=== PATIENT | male | born 1970 | race Caucasian/White ===

== ENCOUNTER 2016-12-17 23:35 | Inpatient (IN) | payer SELFPAY ==
--- NOTE | 2016-12-18 02:18 | PDOC ---
History of Present Illness - General History Source: Patient Exam Limitations: No Limitations - History of Present Illness Initial Comments: 12/18/16 03:05 Patient is a 46 year old male with a significant past medical history of Obesity , HTN, HLD, Gout (compliant with medications), who presents to the emergency department with lower extremity swelling, erythema and lesions with clear fluid from left lower extremity. Patient states that he has history of gout and his extremities are usually red and swollen so he did not pay much attention to them. Patient reports redness and swelling up to both knees. He denies fever or chills. <Cony Cardenas - Last Filed: 12/18/16 03:05> - General History Source: Patient <Anthony Munoz - Last Filed: 12/18/16 04:13> - General Chief Complaint: Edema Stated Complaint: SWOLLEN LEGS Time Seen by Provider: 12/18/16 01:50 Past History <Cony Cardenas - Last Filed: 12/18/16 03:05> - Past Medical History HTN: Yes Hypercholesterolemia: Yes - Surgical History Cholecystectomy: Yes GI Surgery: Yes (Hernia) - Immunization History Td Vaccination: Yes Immunization Up to Date: Yes - Psycho/Social/Smoking Cessation Hx Anxiety: No Suicidal Ideation: No Smoking Status: No Smoking History: Never smoked Years of Tobacco Use: 0 Number of Cigarettes Smoked Daily: 0 Cigars Per Day: 0 Hx Alcohol Use: No Drug/Substance Use Hx: No Substance Use Type: None <Anthony Munoz - Last Filed: 12/18/16 04:13> - Past Medical History Allergies/Adverse Reactions: Allergies Allergy/AdvReac Type Severity Reaction Status Date / Time No Known Allergies Allergy Verified 12/18/16 02:34 Home Medications: Ambulatory Orders Colesevelam HCl [Welchol] 625 mg PO DAILY 10/05/12 Colchicine 0.6 mg PO DAILY 11/05/14 Losartan Potassium 100 mg PO DAILY 11/05/14 Metoprolol Succinate [Toprol XL -] 100 mg PO DAILY 11/05/14 Aspirin [ASA -] 81 mg PO DAILY 01/19/16 Allopurinol [Zyloprim -] 300 mg PO DAILY 07/19/16 Furosemide [Lasix -] 40 mg PO DAILY 07/19/16 Potassium Chloride [Klor-Con 10] 10 meq PO DAILY 07/19/16 Review of Systems - Review of Systems Able to Perform ROS?: Yes Comments:: 12/18/16 03:05 CONSTITUTIONAL: Absent: fever, chills, diaphoresis, generalized weakness, malaise, loss of appetite HEENT: Absent: rhinorrhea, nasal congestion, throat pain, throat swelling, difficulty swallowing, mouth swelling, ear pain, eye pain, visual Changes CARDIOVASCULAR: Absent: chest pain, syncope, palpitations, irregular heart rate, lightheadedness , peripheral edema RESPIRATORY: Absent: cough, shortness of breath, dyspnea with exertion, orthopnea, wheezing, stridor, hemoptysis GASTROINTESTINAL: Absent: abdominal pain, abdominal distension, nausea, vomiting, diarrhea, constipation, melena, hematochezia GENITOURINARY: Absent: dysuria, frequency, urgency, hesitancy, hematuria, flank pain, genital pain MUSCULOSKELETAL: Present: bilateral lower extremity erythema and edema. Absent: myalgia, arthralgia, joint swelling SKIN: Absent: rash, itching, pallor HEMATOLOGIC/IMMUNOLOGIC: Absent: easy bleeding, easy bruising, lymphadenopathy, frequent infections ENDOCRINE: Absent: unexplained weight gain, unexplained weight loss, heat intolerance, cold intolerance NEUROLOGIC: Absent: headache, focal weakness or paresthesias, dizziness, unsteady gait, seizure, mental status changes, bladder or bowel incontinence PSYCHIATRIC: Absent: anxiety, depression, suicidal or homicidal ideation, hallucinations. <Cony Cardenas - Last Filed: 12/18/16 03:05> *Physical Exam - Vital Signs Last Vital Signs Temp Pulse Resp BP Pulse Ox 98.3 F 90 20 160/112 97 12/18/16 00:48 12/18/16 00:48 12/18/16 00:48 12/18/16 00:48 12/18/16 00:48 - Physical Exam Comments: 12/18/16 03:06 GENERAL: +Obese. Well developed, well nourished. Awake and alert. In no acute distress. HEENT: Normocephalic, atraumatic. PERRLA, EOMI. No conjunctival pallor. Sclerae are non -icteric. Moist mucous membranes. Oropharynx is clear. NECK: Supple. Full ROM. No JVD. Carotid pulses 2+ and symmetric, without bruits. No thyromegaly. No lymphadenopathy. CARDIOVASCULAR: Regular rate and rhythm. No murmurs, rubs, or gallops. Distal pulses are 2+ and symmetric. PULMONARY: No evidence of respiratory distress. Lungs clear to auscultation bilaterally. No wheezing, rales or rhonchi. ABDOMINAL: +Morbidly obese. Soft. Non-tender. Non-distended. No rebound or guarding. No organomegaly. Normoactive bowel sounds. MUSCULOSKELETAL Normal range of motion at all joints. No bony deformities or tenderness. No CVA tenderness. EXTREMITIES: + +2 pitting edema bilateral up to both knees. Neither lower extremity is tender. No cyanosis. No clubbing. No calf tenderness. SKIN: Warm and dry. Normal capillary refill. No rashes. No jaundice. NEUROLOGICAL: Alert, awake, appropriate. Cranial nerves 2-12 intact. No deficits to light touch and temperature in face, upper extremities and lower extremities. No motor deficits in the in face, upper extremities and lower extremities. Normoreflexic in the upper and lower extremities. Normal speech. Toes are downgoing bilaterally. PSYCHIATRIC: Cooperative. Good eye contact. Appropriate mood and affect. <Cony Cardenas - Last Filed: 12/18/16 03:05> - Vital Signs Last Vital Signs Temp Pulse Resp BP Pulse Ox 98.3 F 90 20 160/112 97 12/18/16 00:48 12/18/16 00:48 12/18/16 00:48 12/18/16 00:48 12/18/16 00:48 <Anthony Munoz - Last Filed: 12/18/16 04:13> Heart Score/ECG Review #1 12/18/16 03:08 ECG was reviewed by Dr. Munoz Impression: atrial fibrillation with premature ventricular or aberrantly conducted complexes Nonspecific T wave abnormality Prolonged QT Vent rate 93 bpm QRS duration 90 ms <Cony Cardenas - Last Filed: 12/18/16 03:05> ED Treatment Course - Medications Given in the ED: ED Medications Discontinued Medications Generic Name Dose Route Start Last Admin Trade Name Freq PRN Reason Stop Dose Admin Furosemide 60 mg 12/18/16 02:22 12/18/16 02:58 Lasix Injection - IVPUSH 12/18/16 02:23 60 mg ONCE ONE Administration <Cony Cardenas - Last Filed: 12/18/16 03:05> - LABORATORY CBC & Chemistry Diagram: 12/18/16 02:45 12/18/16 02:45 <Anthony Munoz - Last Filed: 12/18/16 04:13> Medical Decision Making - Medical Decision Making 12/18/16 03:57 Dr. Munoz: The scribe's documentation has been prepared under my direction and personally reviewed by me in its entirery. I confirm that the note above accurately reflects all work, treatment, procedures, and medical decision making performed by me. 12/18/16 03:59 Pt with bilateral lower extremity edema and multiple wound to left leg, with serous yellow fluid. 12/18/16 04:13 <Anthony Munoz - Last Filed: 12/18/16 04:13> *DC/Admit/Observation/Transfer - Attestations Scribe Attestion: 12/18/16 03:08 Documentation prepared by JASMYN Gomez, acting as medical coder for Anthony Munoz DO. <Cony Cardenas - Last Filed: 12/18/16 03:05> - Discharge Dispostion Admit: Yes <Anthony Munoz - Last Filed: 12/18/16 04:13> Diagnosis at time of Disposition: Bilateral lower extremity edema Open wound of left knee, leg, and ankle Qualifiers: Encounter type: initial encounter Qualified Code(s): S81.002A - Unspecified open wound, left knee, initial encounter - Discharge Dispostion Condition at time of disposition: Stable - Referrals Referrals: Mojgan West MD [Primary Care Provider] -
[2016-12-18] MEDS ORDERED: FUROSEMIDE 40 MG/4 ML INJECTABLE VIAL IVPUSH ONE (02:22)
[2016-12-18] MEDS ORDERED: FUROSEMIDE 40 MG/4 ML INJECTABLE VIAL ONE ×2 (02:42→02:43)
[2016-12-18 03:10] LABS: BASOPHIL 0.7 % (0-2.0); EOSINOPHIL 2.6 % (0-4.5); MCH 30.4 pg (25.7-33.7); MEAN CELL VOLUME 91.9 fl (80-96); MEAN PLT VOLUME 8.9 fl (7.5-11.1); NEUTROPHILS 52.7 % (42.8-82.8); PLATELET COUNT 175 K/MM3 (134-434); RDW 15.4 % (11.9-15.9); WHITE BLOOD COUNT 7.6 K/mm3 (4.0-10.0)
[2016-12-18 03:33] VITALS: BMI 48.7
[2016-12-18 03:33] LABS: URINE APPEARANCE CLEAR; URINE BILIRUBIN NEGATIVE (NEGATIVE); URINE BLOOD NEGATIVE (NEGATIVE); URINE COLOR LTYELLOW; URINE GLUCOSE (UA) NEGATIVE (NEGATIVE); URINE KETONE NEGATIVE (NEGATIVE); URINE LEUK ESTERASE NEGATIVE (NEGATIVE); URINE NITRITE NEGATIVE (NEGATIVE); URINE UROBILINOGEN NEGATIVE E.U./dl (0.2-1.0)
[2016-12-18 03:36] LABS: ALBUMIN 3.3 g/dl (3.4-5.0); ANION GAP 10 (8-16); BILIRUBIN,TOTAL 0.6 mg/dL (0.2-1.0); CALCIUM 8.5 mg/dL (8.5-10.1); CO2 27 mmol/L (21-32); CREATININE 0.8 mg/dL (0.7-1.3); GLUCOSE,RANDOM 111 mg/dL (74-106); SGOT/AST 30 U/L (15-37); SGPT/ALT 30 U/L (12-78); TOT PROT 6.6 g/dl (6.4-8.2)
[2016-12-18 03:39] LABS: ALK PHOS 97 U/L (45-117); INR 1.23 (0.82-1.09); PROTHROMBIN TIME (PATIENT) 13.6 SEC (9.98-11.88); TROPONIN I < 0.02 ng/ml (0.00-0.05)
[2016-12-18 03:43] LABS: URINE PROTEIN 2+ (NEGATIVE)
[2016-12-18 03:49] LABS: URINE MUCUS RARE; URINE RBC 1 /hpf (0-3); URINE WBC <1 /hpf (3-5)
[2016-12-18] MEDS ORDERED: CEFAZOLIN 2 GM in DEXTROSE 5%-WATER - 50 ML IVPB ONE (04:06)
[2016-12-18] MEDS ORDERED: CEFAZOLIN (PRE-DOCKED) 100 ML IVPB ONE (04:56)
--- NOTE | 2016-12-18 06:05 | HP ---
CHIEF COMPLAINT: leg swelling PCP: [facility] HISTORY OF PRESENT ILLNESS: This is a 46 year old male with a past medical history of HTN, HLD, gout, obesity who presented to the ED with bilat lower extremity swelling and erythema. Symptoms started 2 weeks ago and have worsened. Now with excoriations to LLE as well. + weeping serous fluid. Pt states that he became concerned when the redness and swelling extended above knee. Pt denies any chest pain or SOB. ER course was notable for: (1) given Ancef 1g IV (2) WBC 7.6 Recent Travel: pt denies PAST MEDICAL HISTORY: HTN HLD gout obesity PAST SURGICAL HISTORY: cholecystectomy Left knee arthroscopy R knee ACL, MCL repair Left hernia repair Social History: Smoking: pt denies Alcohol: quit 35 days ago, previous heavy drinker, 1.5 bottles geronimo black, beer and shots per night 4-5 nights/week Drugs: quit 35 days ago, previous cocaine use Family History: mother age 71, DM1, CA, 15 stents father age 68, [place], first [place] age 36, DM2 No siblings or children Allergies No Known Allergies Allergy (Verified 12/18/16 02:34) HOME MEDICATIONS: 3 Medication Instructions Recorded Colesevelam HCl [Welchol] 625 mg PO DAILY 10/05/12 Colchicine 0.6 mg PO DAILY 11/05/14 Losartan Potassium 100 mg PO DAILY 11/05/14 Metoprolol Succinate [Toprol XL -] 100 mg PO DAILY 11/05/14 Aspirin [ASA -] 81 mg PO DAILY 01/19/16 Allopurinol [Zyloprim -] 300 mg PO DAILY 07/19/16 Furosemide [Lasix -] 40 mg PO DAILY 07/19/16 Potassium Chloride [Klor-Con 10] 10 meq PO DAILY 07/19/16 Albuterol Sulfate Inhaler - 1 - 2 inh PO Q4H 12/18/16 [Ventolin Hfa Inhaler -] Tramadol HCl [Ultram] 50 mg PO ASDIR PRN 12/18/16 REVIEW OF SYSTEMS CONSTITUTIONAL: Absent: fever, chills, diaphoresis, generalized weakness, malaise, loss of appetite, weight change HEENT: Absent: rhinorrhea, nasal congestion, throat pain, throat swelling, difficulty swallowing, mouth swelling, ear pain, eye pain, visual changes CARDIOVASCULAR: Present: peripheral edema Absent: chest pain, syncope, palpitations, irregular heart rate, lightheadedness RESPIRATORY: Absent: cough, shortness of breath, dyspnea with exertion, orthopnea, wheezing, stridor, hemoptysis GASTROINTESTINAL: Absent: abdominal pain, abdominal distension, nausea, vomiting, diarrhea, constipation, melena, hematochezia GENITOURINARY: Absent: dysuria, frequency, urgency, hesitancy, hematuria, flank pain, genital pain MUSCULOSKELETAL: Absent: myalgia, arthralgia, joint swelling, back pain, neck pain SKIN: Present: excoriations LLE, + erythema, edema BLE Absent: rash, itching, pallor HEMATOLOGIC/IMMUNOLOGIC: Absent: easy bleeding, easy bruising, lymphadenopathy, frequent infections ENDOCRINE: Absent: unexplained weight gain, unexplained weight loss, heat intolerance, cold intolerance NEUROLOGIC: Absent: headache, focal weakness or paresthesias, dizziness, unsteady gait, seizure, mental status changes, bladder or bowel incontinence PSYCHIATRIC: Absent: anxiety, depression, suicidal or homicidal ideation, hallucinations. PHYSICAL EXAMINATION Vital Signs - 24 hr 3 12/18/16 00:48 Temperature 98.3 F Pulse Rate 90 Respiratory 20 Rate Blood Pressure 160/112 O2 Sat by Pulse 97 Oximetry (%) GENERAL: Awake, alert, and fully oriented, in no acute distress. HEAD: Normal with no signs of trauma. EYES: Pupils equal, round and reactive to light, extraocular movements intact, sclera anicteric, conjunctiva clear. No lid lag. EARS, NOSE, THROAT: Ears normal, nares patent, oropharynx clear without exudates. Moist mucous membranes. NECK: Normal range of motion, supple without lymphadenopathy, JVD, or masses. LUNGS: Breath sounds equal, clear to auscultation bilaterally. No wheezes, and no crackles. No accessory muscle use. HEART: Regular rate and rhythm, normal S1 and S2 without murmur, rub or gallop. ABDOMEN: Soft, nontender, not distended, normoactive bowel sounds, no guarding, no rebound, no masses. No hepatomegaly or splenomegaly. Morbidly obes MUSCULOSKELETAL: Normal range of motion at all joints. No bony deformities or tenderness. No CVA tenderness. UPPER EXTREMITIES: 2+ pulses, warm, well-perfused. No cyanosis. No clubbing. No peripheral edema. LOWER EXTREMITIES: 2+ pulses, warm, well-perfused. No calf tenderness. 2+ edema BLE just above knee, + erythema, warmth, left leg extending just above knee, right, just below knee NEUROLOGICAL: Cranial nerves II-XII intact. Normal speech. Normal gait. PSYCHIATRIC: Cooperative. Good eye contact. Appropriate mood and affect. SKIN: Warm, dry, normal turgor, no rashes or lesions noted, normal capillary refill. excoriations LLE, draining serous fluid Laboratory Results - last 24 hr 3 12/18/16 12/18/16 12/18/16 02:45 02:45 02:45 WBC 7.6 RBC 4.38 Hgb 13.3 Hct 40.3 MCV 91.9 MCHC 33.0 RDW 15.4 Plt Count 175 D MPV 8.9 D Neutrophils % 52.7 Lymphocytes % 34.1 Monocytes % 9.9 Eosinophils % 2.6 Basophils % 0.7 INR 1.23 H Sodium 143 Potassium 4.0 Chloride 106 Carbon Dioxide 27 Anion Gap 10 BUN 18 D Creatinine 0.8 D Creat Clearance w eGFR > 60 Random Glucose 111 H D Calcium 8.5 Magnesium 2.0 Total Bilirubin 0.6 D AST 30 D ALT 30 D Alkaline Phosphatase 97 Creatine Kinase 93 Troponin I < 0.02 B-Natriuretic Peptide 879.37 H Total Protein 6.6 Albumin 3.3 L Urine Color Urine Appearance Urine pH Ur Specific [place] Urine Protein Urine Glucose (UA) Urine Ketones Urine Blood Urine Nitrite Urine Bilirubin Urine Urobilinogen Ur Leukocyte Esterase Urine RBC Urine WBC Ur Epithelial Cells Urine Mucus 3 Urine Color Ltyellow 12/18/16 03:10 Urine Appearance Clear 12/18/16 03:10 Urine pH 6.0 (5.0-8.0) 12/18/16 03:10 Ur Specific [place] 1.016 (1.001-1.035) 12/18/16 03:10 Urine Protein 2+ (NEGATIVE) H 12/18/16 03:10 Urine Glucose (UA) Negative (NEGATIVE) 12/18/16 03:10 Urine Ketones Negative (NEGATIVE) 12/18/16 03:10 Urine Blood Negative (NEGATIVE) 12/18/16 03:10 Urine Nitrite Negative (NEGATIVE) 12/18/16 03:10 Urine Bilirubin Negative (NEGATIVE) 12/18/16 03:10 Ur Leukocyte Esterase Negative (NEGATIVE) 12/18/16 03:10 Urine RBC 1 /hpf (0-3) 12/18/16 03:10 Urine WBC <1 /hpf (3-5) 12/18/16 03:10 Ur Epithelial Cells Rare /hpf (FEW) 12/18/16 03:10 Urine Mucus Rare 12/18/16 03:10 ECG: atrial fibrillation, rate 93, nonspecific ST abnormality ASSESSMENT/PLAN: 46yM with PMH HTN, HLD, gout presented to the ED with B/L LE edema, erythema, weeping excoriations. He is being admitted for cellulitis. Cellulitis - cont ancef 1g Q8H - if not improving, ID consult new onset atrial fibrillation - admit to tele - cardiology consult - lovenox 170mg for now, cardiology to recommend further, Chadsvasc2 score is 1, likely only asa needed - lasix 40mg IVP daily for apparent volume overload - echo ordered HTN - cont home medications HLD - cont home medications GOut - cont home medications DVT PPX - full dose lovenox for new onset afib FEN - defer iVF, appears fluid overloaded - repeat labs ordered - low sodium diet as tolerated. Dispo: Pt currently requires inpatient care. Visit type - Emergency Visit Emergency Visit: Yes ED Registration Date: 12/17/16 Care time: The patient presented to the Emergency Department on the above date and was hospitalized for further evaluation of their emergent condition. - New Patient This patient is new to me today: Yes Date on this admission: 12/18/16 - Critical Care Critical Care patient: No
[2016-12-18] MEDS ORDERED: ENOXAPARIN NA (PORCINE) 100 MG/1 ML DISP.SYRIN SQ ONE (06:31)
[2016-12-18] MEDS ORDERED: ENOXAPARIN NA (PORCINE) 80 MG/0.8 ML DISP.SYRIN SQ ONE (06:32)
[2016-12-18] MEDS: ENOXAPARIN NA (PORCINE) 100 MG/1 ML DISP.SYRIN SQ SCH ×2 (06:35→10:11)
[2016-12-18] MEDS ORDERED: traMADol HCL 50 MG TABLET PO PRN ×2 (06:46→06:59)
[2016-12-18] MEDS ORDERED: ALBUTEROL SO4 6.7 GM HFA INHALER IH PRN (06:46)
[2016-12-18 08:41] LABS: BASOPHIL 0.6 % (0-2.0); EOSINOPHIL 3.3 % (0-4.5); MCH 30.3 pg (25.7-33.7); MCHC 32.8 g/dl (32.0-35.9); MEAN CELL VOLUME 92.3 fl (80-96); MEAN PLT VOLUME 8.9 fl (7.5-11.1); NEUTROPHILS 52.3 % (42.8-82.8); PLATELET COUNT 168 K/MM3 (134-434); RDW 15.2 % (11.9-15.9)
[2016-12-18 09:04] LABS: CALCIUM 8.5 mg/dL (8.5-10.1); MAGNESIUM 1.9 mg/dL (1.8-2.4)
[2016-12-18 09:05] LABS: COCKROFT - GAULT 244.71; CREATININE 0.9 mg/dL (0.7-1.3); TROPONIN I < 0.02 ng/ml (0.00-0.05)
[2016-12-18] MEDS ORDERED: ASPIRIN 81 MG CHEWABLE TABLETS PO SCH (10:00)
[2016-12-18] MEDS ORDERED: HEPARIN NA (PORCINE) 5,000 UNITS/ML 1ML VIAL SQ SCH (10:00)
[2016-12-18] MEDS ORDERED: METOPROLOL SUCCINATE 100 MG TAB.SR.24H (FP) PO SCH (10:00)
[2016-12-18] MEDS ORDERED: PATIENT'S OWN MEDICATION (NON-FORMULARY) (Colesevelam Hcl [Welchol] 625 MG) PO SCH (10:00)
[2016-12-18] MEDS ORDERED: CEFAZOLIN (PRE-DOCKED) 50 ML IVPB ONE (10:13)
[2016-12-18] MEDS: CEFAZOLIN (PRE-DOCKED) 50 ML IVPB SCH ×2 (10:21→17:26)
[2016-12-18] MEDS: COLCHICINE 0.6 MG TABLET (FP) PO SCH (10:21)
[2016-12-18] MEDS: LOSARTAN POTASSIUM 50 MG TABLET (FP) PO SCH (10:21)
[2016-12-18] MEDS: ALLOPURINOL 300 MG TABLET (FP) PO SCH (10:22)
--- NOTE | 2016-12-18 11:27 | PN ---
Progress Note (short form) - Note Progress Note: Chief Complaint: Events noted, notes reviewed, bilateral lower extremity edema with increasing dyspnea, clinical presentation is consistent with class I-II NYHA classifcation related to LV dysfunction, unclear systolic vs. diastolic History of Present Illness: Seen and examined in ER. Full consult dictated - Current Medication List Current Medications Albuterol Sulfate (Ventolin Hfa Inhaler -) 2 puff IH Q4H PRN PRN Reason: SHORT OF BREATH/WHEEZING Allopurinol (Zyloprim -) 300 mg PO DAILY [facility] Last Admin: 12/18/16 10:22 Dose: 300 mg Aspirin (Asa -) 81 mg PO DAILY [facility] Last Admin: 12/18/16 10:21 Dose: 81 mg Colchicine (Colcrys -) 0.6 mg PO DAILY [facility] Last Admin: 12/18/16 10:21 Dose: 0.6 mg Enoxaparin Sodium (Lovenox -) 170 mg SQ BID [facility] Last Admin: 12/18/16 10:11 Dose: Not Given Furosemide (Lasix Injection -) 40 mg IVPUSH DAILY [facility] Cefazolin Sodium (Ancef 1gm Ivpb (Pre-Docked)) 50 mls @ 100 mls/hr IVPB Q8H-IV [facility] Last Admin: 12/18/16 10:21 Dose: 100 mls/hr Losartan Potassium (Cozaar -) 100 mg PO DAILY [facility] Last Admin: 12/18/16 10:21 Dose: 100 mg Metoprolol Succinate (Toprol Xl -) 100 mg PO DAILY [facility] Last Admin: 12/18/16 10:22 Dose: 100 mg Non-Formulary Medication (Colesevelam Hcl [Welchol]) 625 mg PO DAILY [facility] Tramadol HCl (Ultram -) 50 mg PO Q6H PRN PRN Reason: PAIN Review of Systems Constitutional: denies: Chills or Fever Cardiovascular: As noted above Respiratory: denies: Cough or Sputum Production Gastrointestinal: denies: Nausea, Vomiting, Diarrhea, Constipation or Abdominal Pain Genitourinary: No symptoms reported - Objective Vital Signs: Last Vital Signs Temp Pulse Resp BP Pulse Ox 98.3 F 90 20 160/112 97 12/18/16 00:48 12/18/16 00:48 12/18/16 00:48 12/18/16 00:48 12/18/16 00:48 Neck: Supple Negative JVD No Bruit Cardiovascular: S1 S2 Irregularly Irregular Respiratory: Clear to A&P Bilaterally Gastrointestinal: Soft Benign Normal Bowel Sounds Ext: 1-2+ Edema Bilaterally Labs: Troponin, BNP 12/18/16 12/18/16 02:45 08:10 Troponin I < 0.02 < 0.02 B-Natriuretic Peptide 879.37 H CBC, BMP 12/18/16 08:10 12/18/16 08:10 INR, PTT INR 1.23 (0.82-1.09) H 12/18/16 02:45 Assessment/Plan ASSESSMENT: 1. Clinical presentation consistent with class I-II NYHA association LV failure , unclear systolic vs. diastolic LV dysfunction 2. CAD angina pectoris to be considered 3. Paroxysmal atrial fibrillation duration of which unknown [id number] score 2 on no A/C therapy 4. HTN, uncontrolled 5. Hypercholesterolemia 6. Hyperglycemia 7. Leg cellulites 8. Probable obstructive sleep apnea with pulmonary HTN 9. Morbid obesity PLAN: 1. Continue Toprol XL and titrate dosage 2. Continue Cozaar 3. Add Norvasc 4. Continue IV Lasix and add Aldactone 5. D/C Lovenox since dosing in greater than 100 Kg patients has not been studied and initiate NOAC's 6. D/C ASA 7. Echocardiography to evaluate LV function and PA pressures 8. Antibiotics as per the primary team 9. Recommend sleep studies as outpatient Wellington Herman MD
[2016-12-18] MEDS ORDERED: SPIRONOLACTONE 25 MG TABLET (FP) PO SCH (11:45)
[2016-12-18] MEDS ORDERED: amLODIPine BESYLATE 5 MG TABLET (FP) ONE (11:54)
[2016-12-18] MEDS ORDERED: SPIRONOLACTONE 25 MG TABLET (FP) ONE (11:55)
[2016-12-18] MEDS: amLODIPine BESYLATE 5 MG TABLET (FP) PO SCH (11:57)
[2016-12-18] MEDS ORDERED: METOPROLOL SUCCINATE 50 MG TAB.SR.24H (FP) PO SCH (12:00)
--- NOTE | 2016-12-18 12:29 | EKG ---
Test Reason : Blood Pressure : / mmHG Vent. Rate : 095 BPM Atrial Rate : 394 BPM P-R Int : 000 ms QRS Dur : 086 ms QT Int : 366 ms P-R-T Axes : 000 027 -34 degrees QTc Int : 459 ms ATRIAL FIBRILLATION WITH PREMATURE VENTRICULAR OR ABERRANTLY CONDUCTED COMPLEXES NONSPECIFIC T WAVE ABNORMALITY ABNORMAL ECG WHEN COMPARED WITH ECG OF 18-DEC-2016 02:45, NO SIGNIFICANT CHANGE WAS FOUND Confirmed by BILL MURPHY, GREGORY ([id number]) on 12/18/2016 12:29:09 PM Referred By: Nikia KAUR Confirmed By:GREGORY KHAN MD
--- NOTE | 2016-12-18 12:34 | CONS ---
DATE OF CONSULTATION: 12/18/2016 CONSULTATION REQUESTED BY: Hospitalist. CHIEF COMPLAINT: Progressive bilateral lower extremity edema, increasing dyspnea, cardiovascular evaluation for new-onset atrial fibrillation. A 46-year-old morbidly obese male with known history of chest pain syndrome, known history of chest pain syndrome, unclear if there is history of coronary artery disease, diastolic left ventricular dysfunction with class 0 [place] [employer] classification left ventricular failure, hypertensive cardiovascular disease, hypercholesterolemia, gout, who presented to [facility] with progressive bilateral lower extremity edema and subsequently blistering and redness. Patient, in addition, has been reporting increasing dyspnea with minimal physical activity, denying orthopnea or paroxysmal nocturnal dyspnea. Patient did not report any chest discomfort. Patient denied any palpitations, dizziness, lightheadedness, or syncope. Upon evaluation in the emergency room, patient was noted to have new-onset atrial fibrillation, duration of which is unclear. According to the patient, a few years ago he had left heart cardiac catheterization, coronary angiography performed at [facility], which apparently did not reveal any evidence of coronary artery disease. PAST MEDICAL HISTORY: Chest pain syndrome post left heart cardiac catheterization and coronary angiography, results unknown; diastolic left ventricular dysfunction with chronic class 0 [place] Heart [employer] classification left ventricular failure, hypertensive cardiovascular disease, hypercholesterolemia, gout. PAST SURGICAL HISTORY: Arthroscopic bilateral knee surgery, cholecystectomy. SOCIAL HISTORY: Denies tobacco abuse. FAMILY HISTORY: Positive coronary artery disease. In addition, positive for hypertension, diabetes mellitus. ALLERGIES: No known medical allergies. MEDICATIONS: Medical therapy at home included WelChol 625 mg once a day, colchicine 0.6 mg once a day, Cozaar 100 mg once a day, Toprol XL 100 mg once a day, Ecotrin 81 mg once a day, allopurinol 300 mg once a day, Lasix 40 mg once a day, potassium supplement K-Dur 10 mEq once a day. The patient was initiated on Lovenox therapy at 170 mg subcutaneously twice daily and in addition cefazolin (Ancef) therapy at 1 g every 8 hours. REVIEW OF SYSTEMS: Head and Neck: Denies headache, photophobia, blurring of vision. Respiratory: No cough or sputum production. Cardiovascular: As noted above. Gastrointestinal: Denies nausea, vomiting, diarrhea, abdominal discomfort. Genitourinary: No symptoms reported. Musculoskeletal: No symptoms reported. PHYSICAL EXAMINATION: Vital Signs: Blood pressure is 160/112 mmHg. Pulse rate is 90 beats per minute, irregularly irregular. Head and Neck: Pupils equal, react to light and accommodation. Extraocular muscles are intact. Anicteric sclerae. Negative JVD. No bruit appreciated. Chest: Diminished breath sounds at the bases bilaterally. Cardiovascular: S1, S2, irregularly irregular. No murmur, clicks or gallops. Abdomen: Soft, benign. Normoactive bowel sound. Extremities: Extensive bilateral edema with blisters and redness. EKG reveals atrial fibrillation with premature ventricular contractions and nonspecific T-wave abnormality. B-type natriuretic peptide was 879. Basic metabolic profile revealed sodium 144, potassium 3.5, BUN 17, creatinine 0.7, glucose 119. CBC revealed a white cell count 7.0, hemoglobin 13.3, platelet count 168, INR 1.23. Chest x-ray performed early this a.m. revealed no evidence of active pulmonary pathology and cardiomegaly. ASSESSMENT: 1. Clinical presentation that is consistent with class 1 to 2 [place] Heart [employer] classification left ventricular failure, unclear systolic versus diastolic left ventricular dysfunction. 2. Coronary artery disease, angina pectoris to be considered as a differential. 3. Paroxysmal atrial fibrillation, duration of which is unknown, a [id number] score of 2, on no anticoagulation therapy. 4. Hypertensive cardiovascular disease, uncontrolled. 5. Hypercholesterolemia. 6. Hyperglycemia. 7. Lower extremity cellulitis. 8. Probable obstructive sleep apnea with pulmonary hypertension. 9. Morbid obesity. PLAN: 1. Continuation of Toprol XL therapy and titration of dosage. 2. Continuation of Cozaar. 3. Addition of Norvasc. 4. Continuation of IV Lasix and addition of Aldactone. 5. Discontinue Lovenox, since dosing in greater than 100 kg patients has not been studied, and initiate new oral anticoagulant therapy with Eliquis. 6. Discontinuation of aspirin. 7. Echocardiography to evaluate left ventricular size and function and pulmonary artery systolic pressure. 8. Antibiotics as per the primary team. 9. Recommend sleep studies as outpatient. Thank you for the kind referral. GREGORY KHAN M.D. [id number]
--- NOTE | 2016-12-18 13:35 | EKG ---
Test Reason : Blood Pressure : / mmHG Vent. Rate : 093 BPM Atrial Rate : 105 BPM P-R Int : 000 ms QRS Dur : 090 ms QT Int : 372 ms P-R-T Axes : 000 025 -29 degrees QTc Int : 462 ms ATRIAL FIBRILLATION WITH PREMATURE VENTRICULAR OR ABERRANTLY CONDUCTED COMPLEXES NONSPECIFIC T WAVE ABNORMALITY PROLONGED QT ABNORMAL ECG WHEN COMPARED WITH ECG OF 05-OCT-2012 18:54, ATRIAL FIBRILLATION HAS REPLACED SINUS RHYTHM T WAVE INVERSION MORE EVIDENT IN INFERIOR LEADS NONSPECIFIC T WAVE ABNORMALITY NOW EVIDENT IN LATERAL LEADS CLINICAL CORRELATION IS RECOMMENDED Confirmed by BILL MURPHY, GREGORY ([id number]) on 12/18/2016 1:35:23 PM Referred By: Confirmed By:GREGORY KHAN MD
[2016-12-18 14:15] LABS: TROPONIN I < 0.02 ng/ml (0.00-0.05)
[2016-12-18] MEDS: FUROSEMIDE 40 MG/4 ML INJECTABLE VIAL IVPUSH SCH (16:02)
--- NOTE | 2016-12-18 17:53 | PN ---
Physical Exam: SUBJECTIVE: Patient seen and examined. Denies chest pain or shortness of breath. OBJECTIVE: Attempted to assess pt in ER, unable as he was undergoing echo Patient seen and examined at bedside on 4th floor. Vital Signs Period Temp Pulse Resp BP Sys/Jean Pulse Ox Last 24 Hr 98.1 F 74-94 18-18 148-184/70-105 97-99 GENERAL: The patient is awake, alert, and fully oriented, in no acute distress. HEAD: Normal with no signs of trauma. EYES: PERRL, extraocular movements intact, sclera anicteric, conjunctiva clear. No ptosis. ENT: Ears normal, nares patent, oropharynx clear without exudates, moist mucous membranes. NECK: Trachea midline, full range of motion, supple. LUNGS: Breath sounds equal, diminished at the bases, tolerating room air, no wheezes, no crackles, no accessory muscle use. ABDOMEN: Obese abdomen, soft, nontender, normoactive bowel sounds, no guarding , no rebound, no hepatosplenomegaly, no masses. EXTREMITIES:Bilateral lower ext with +2 pitting edema, left lower ext with multiple abrasions and erythema. Pt reports weeping edema of left leg. NEUROLOGICAL: Normal speech, gait not observed. PSYCH: Normal mood, normal affect. Laboratory Results - last 24 hr 12/18/16 12/18/16 12/18/16 08:10 08:10 08:10 WBC 7.0 RBC 4.38 Hgb 13.3 Hct 40.4 MCV 92.3 MCHC 32.8 RDW 15.2 Plt Count 168 MPV 8.9 Neutrophils % 52.3 Lymphocytes % 33.4 Monocytes % 10.4 H Eosinophils % 3.3 Basophils % 0.6 Sodium 144 Potassium 3.5 Chloride 106 Carbon Dioxide 29 Anion Gap 9 BUN 17 Creatinine 0.9 Random Glucose 119 H Calcium 8.5 Magnesium 1.9 Creatine Kinase 83 Troponin I < 0.02 12/18/16 13:10 WBC RBC Hgb Hct MCV MCHC RDW Plt Count MPV Neutrophils % Lymphocytes % Monocytes % Eosinophils % Basophils % Sodium Potassium Chloride Carbon Dioxide Anion Gap BUN Creatinine Random Glucose Calcium Magnesium Creatine Kinase 85 Troponin I < 0.02 Active Medications Generic Name Dose Route Start Last Admin Trade Name Freq PRN Reason Stop Dose Admin Albuterol Sulfate 2 puff 12/18/16 06:46 Ventolin Hfa Inhaler - IH Q4H PRN SHORT OF BREATH/WHEEZING Allopurinol 300 mg 12/18/16 10:00 12/18/16 10:22 Zyloprim - PO 300 mg DAILY [facility] Administration Amlodipine Besylate 5 mg 12/18/16 11:45 12/18/16 11:57 Norvasc - PO 5 mg DAILY [facility] Administration Apixaban 5 mg 12/18/16 22:00 Eliquis - PO BID [facility] Colchicine 0.6 mg 12/18/16 10:00 12/18/16 10:21 Colcrys - PO 0.6 mg DAILY [facility] Administration Furosemide 40 mg 12/18/16 14:00 12/18/16 16:02 Lasix Injection - IVPUSH 40 mg BID@0600,1400 [facility] Administration Cefazolin Sodium 50 mls @ 100 mls/hr 12/18/16 10:00 12/18/16 17:26 Ancef 1gm Ivpb (Pre-Docked) IVPB 100 mls/hr Q8H-IV [facility] Administration Losartan Potassium 100 mg 12/18/16 10:00 12/18/16 10:21 Cozaar - PO 100 mg DAILY [facility] Administration Metoprolol Succinate 150 mg 12/18/16 12:00 12/18/16 16:01 Toprol Xl - PO Not Given DAILY [facility] Non-Formulary Medication 625 mg 12/18/16 10:00 Colesevelam Hcl [Welchol] PO DAILY [facility] Spironolactone 25 mg 12/18/16 11:45 12/18/16 11:57 Aldactone - PO 25 mg DAILY [facility] Administration Tramadol HCl 50 mg 12/18/16 06:59 Ultram - PO Q6H PRN PAIN ASSESSMENT/PLAN: Patient is a 46 year old male with a significant past medical history of obesity , hypertension, HLD, left knee arthrosocopy and gout. He presented to the ED on 12/18/2016 with bilateral lower extremity edema, erythema and weeping edema of left leg. Patient states that he has history of gout and his extremities are usually red and swollen so he did not pay much attention to them. He is being admitted for bilateral lower ext. cellulitis. Imaging: Chest Xray 12/17/2016: no evidence of active pulmonary disease, cardiomegaly - uncoiled thoracic aorta, no pneumonia, atelectasis, CHF or pleural effusions seen. EKG 12/18/2016: Atrial fib with premature vent. or aberrantly conducted complexes - non specific t wave abnormality - prolonged QT, when compared to EKG of 10/05/16, Atrial Fib has replaced Sinus rhythm and T wave inversion more evident. ID: Bilateral lower extremity Cellulitis - acute on chronic Assessment/Plan: Startred on Ancef 1 gram in ED ID consulted for further recommendations of antibiotic therapy On IV Lasix for LE edema Monitor Bun/Creat. while on lasix If legs without improvement, may consider vascular consult Cardiology: Atrial fibrillation - new onset Assessment/Plan: Eliquis started today by cardiology metoprolol 150mg PO daily, monitor on tele Troponins negative x 3 echo reviewed Hypertension - chronic Assessment/Plan: On metoprolol 150mg PO daily, On Losartan 100mg daily Norvasc 5mg daily added today by cardiology Monitor and titrate as per cardiology Hyperlipidemia Assessment/Plan: Lipid panel for a.m. Endocrine: Hyperglycemia: Hemoglobin A1c for a.m. monitor F.E.N. Fluids: Tolerating PO Electrolytes: Monitor with BMP Nutrition: low sodium Prophylaxis: DVT: Eliquis 5mg PO BID GI: Protonix daily Disposition: Pt currently requires inpatient care. On discharge, will need sleep study. Full code. Visit type - Emergency Visit Emergency Visit: Yes ED Registration Date: 12/18/16 Care time: The patient presented to the Emergency Department on the above date and was hospitalized for further evaluation of their emergent condition. - New Patient This patient is new to me today: Yes Date on this admission: 12/18/16 - Critical Care Critical Care patient: No - Discharge Referral Referred to [facility] Med P.C.: No
[2016-12-18 20:06] LABS: TROPONIN I < 0.02 ng/ml (0.00-0.05)
[2016-12-18] MEDS: APIXABAN 5 MG TABLET PO SCH (21:18)
[2016-12-19] MEDS: CEFAZOLIN (PRE-DOCKED) 50 ML IVPB SCH (01:46)
[2016-12-19] MEDS: FUROSEMIDE 40 MG/4 ML INJECTABLE VIAL IVPUSH SCH ×2 (06:32→14:35)
[2016-12-19 07:06] LABS: BASOPHIL 0.6 % (0-2.0); EOSINOPHIL 3.7 % (0-4.5); MCHC 32.4 g/dl (32.0-35.9); MEAN CELL VOLUME 92.6 fl (80-96); MEAN PLT VOLUME 9.1 fl (7.5-11.1); NEUTROPHILS 52.5 % (42.8-82.8); PLATELET COUNT 168 K/MM3 (134-434); RDW 15.2 % (11.9-15.9); WHITE BLOOD COUNT 7.2 K/mm3 (4.0-10.0)
[2016-12-19 07:23] LABS: ALBUMIN 3.2 g/dl (3.4-5.0); ALK PHOS 79 U/L (45-117); ANION GAP 6 (8-16); BILIRUBIN,TOTAL 0.9 mg/dL (0.2-1.0); CALCIUM 8.6 mg/dL (8.5-10.1); CHOLESTEROL 142 mg/dL (50-200); CO2 33 mmol/L (21-32); COCKROFT - GAULT 244.71; CREATININE 0.9 mg/dL (0.7-1.3); GLUCOSE,RANDOM 91 mg/dL (74-106); LDL CHOLESTEROL (ONLY SJRH) 91 mg/dL (5-100); SGOT/AST 36 U/L (15-37); SGPT/ALT 30 U/L (12-78); TOT PROT 6.6 g/dl (6.4-8.2)
--- NOTE | 2016-12-19 09:25 | PN ---
Progress Note, Physician History of Present Illness: Dyspnea on exertion and LE edema improving with diuresis. - Current Medication List Current Medications: Active Medications Albuterol Sulfate (Ventolin Hfa Inhaler -) 2 puff IH Q4H PRN PRN Reason: SHORT OF BREATH/WHEEZING Allopurinol (Zyloprim -) 300 mg PO DAILY [facility] Last Admin: 12/18/16 10:22 Dose: 300 mg Amlodipine Besylate (Norvasc -) 5 mg PO DAILY [facility] Last Admin: 12/18/16 11:57 Dose: 5 mg Apixaban (Eliquis -) 5 mg PO BID [facility] Last Admin: 12/18/16 21:18 Dose: 5 mg Colchicine (Colcrys -) 0.6 mg PO DAILY [facility] Last Admin: 12/18/16 10:21 Dose: 0.6 mg Furosemide (Lasix Injection -) 40 mg IVPUSH BID@0600,1400 [facility] Last Admin: 12/19/16 06:32 Dose: 40 mg Cefazolin Sodium (Ancef 1gm Ivpb (Pre-Docked)) 50 mls @ 100 mls/hr IVPB Q8H-IV [facility] Last Admin: 12/19/16 01:46 Dose: 100 mls/hr Losartan Potassium (Cozaar -) 100 mg PO DAILY [facility] Last Admin: 12/18/16 10:21 Dose: 100 mg Metoprolol Succinate (Toprol Xl -) 150 mg PO DAILY [facility] Last Admin: 12/18/16 16:01 Dose: Not Given Non-Formulary Medication (Colesevelam Hcl [Welchol]) 625 mg PO DAILY [facility] Pantoprazole Sodium (Protonix -) 40 mg PO DAILY [facility] Spironolactone (Aldactone -) 25 mg PO DAILY [facility] Last Admin: 12/18/16 11:57 Dose: 25 mg Tramadol HCl (Ultram -) 50 mg PO Q6H PRN PRN Reason: PAIN - Objective Vital Signs: Vital Signs Temperature 98.0 F 12/19/16 06:00 Pulse Rate 88 12/19/16 06:00 Respiratory Rate 20 12/19/16 06:00 Blood Pressure 157/88 12/19/16 06:00 O2 Sat by Pulse Oximetry (%) 97 12/18/16 21:00 Constitutional: Yes: No Distress, Calm Neck: Yes: Supple Cardiovascular: Yes: Pulse Irregular Respiratory: Yes: Regular, Diminished Gastrointestinal: Yes: Normal Bowel Sounds, Soft, Abdomen, Obese Edema: Yes Edema: LLE: 2+, RLE: 2+ Labs: CBC, BMP 12/19/16 05:35 12/19/16 05:35 INR, PTT INR 1.23 (0.82-1.09) H 12/18/16 02:45 - ....Imaging EKG: Report Reviewed (Tele: Rate-controlled afib) Problem List - Problems (1) Afib Code(s): I48.91 - UNSPECIFIED ATRIAL FIBRILLATION Qualifiers: Atrial fibrillation type: persistent Qualified Code(s): I48.1 - Persistent atrial fibrillation (2) Cellulitis Code(s): L03.90 - CELLULITIS, UNSPECIFIED Qualifiers: Site of cellulitis of extremity: lower extremity Laterality: unspecified laterality (3) Obesity Code(s): E66.9 - OBESITY, UNSPECIFIED Qualifiers: Obesity type: due to excess calories (4) Substance abuse Code(s): F19.10 - OTHER PSYCHOACTIVE SUBSTANCE ABUSE, UNCOMPLICATED (5) Acute on chronic diastolic (congestive) heart failure Code(s): I50.33 - ACUTE ON CHRONIC DIASTOLIC (CONGESTIVE) HEART FAILURE (6) Hypertensive cardiomyopathy Code(s): I11.9 - HYPERTENSIVE HEART DISEASE WITHOUT HEART FAILURE I42.9 - CARDIOMYOPATHY, UNSPECIFIED Qualifiers: Heart failure presence: with heart failure Qualified Code(s): I11.0 - Hypertensive heart disease with heart failure (7) Obstructive sleep apnea Code(s): G47.33 - OBSTRUCTIVE SLEEP APNEA (ADULT) (PEDIATRIC) Assessment/Plan 12/18 Echo: Mild-mod NATASHA, mild dilated LV with mild decrease LV fxn, mild cLVH, mod MR, TR, RVSP 39 mmHg 1. Acute on chronic LV diastolic failure NYHA II improving 2. Paroxysmal atrial fibrillation duration of which unknown [id number] score 2 on NOAC 3. HTN, BP not at goal 4. Hypercholesterolemia 5. Hyperglycemia 6. Leg cellulitis 7. Likely obstructive sleep apnea with pulmonary HTN 8. Morbid obesity 9. Polysubstance abuse- etoh and cocaine (last use over month ago) PLAN: 1. Change Toprol XL to carvedilol 12.5 bid (with h/o cocaine abuse) 2. Continue Cozaar 100 qd 3. Continue Norvasc 5 qd 4. Continue Lasix 40 IV bid and increase Aldactone 50 qd 5. Continue Eliquis 5 bid 6. Antibiotics as per the primary team 7. Recommend sleep studies as outpatient, bipap nightly 8. Abstinence from toxic habits, patient agrees
--- NOTE | 2016-12-19 09:29 | PN ---
Progress Note (short form) - Note Progress Note: ID consult dictated 46 year old man presented to ED 12/18 with 2 week history of worsening lower extremity edema and erythema- no fevers or chills legs weeping clear fluid no bug bites, no pet scratches thought it was his gout in ED noted to be in AFIB (new) admitted to telemetry reports improvement in LE edema and erythema since admission Cellulitis of both lower extremities afib (new) chf htn obesity substance use- etoh and cocaine (reports hiv/hep c negative- no injection use)- stopped using 36 days ago continue ancef, increase dose to 2 grams q8H management of afib/htn/chf per cardiology ?osas weight loss declines substance use referrals, declines repeat HIV and Hep C testing- done at his clinic Problem List - Problems (1) Cellulitis Code(s): L03.90 - CELLULITIS, UNSPECIFIED Qualifiers: Site of cellulitis of extremity: lower extremity Laterality: unspecified laterality (2) Afib Code(s): I48.91 - UNSPECIFIED ATRIAL FIBRILLATION (3) Substance abuse Code(s): F19.10 - OTHER PSYCHOACTIVE SUBSTANCE ABUSE, UNCOMPLICATED (4) Obesity Code(s): E66.9 - OBESITY, UNSPECIFIED
[2016-12-19] MEDS ORDERED: FUROSEMIDE 40 MG/4 ML INJECTABLE VIAL IVPUSH SCH (10:00)
[2016-12-19] MEDS: LOSARTAN POTASSIUM 50 MG TABLET (FP) PO SCH (10:01)
[2016-12-19] MEDS: amLODIPine BESYLATE 5 MG TABLET (FP) PO SCH (10:01)
[2016-12-19] MEDS: APIXABAN 5 MG TABLET PO SCH ×2 (10:01→21:21)
[2016-12-19] MEDS: SPIRONOLACTONE 25 MG TABLET (FP) PO SCH (10:01)
[2016-12-19] MEDS: COLCHICINE 0.6 MG TABLET (FP) PO SCH (10:01)
[2016-12-19] MEDS: ALLOPURINOL 300 MG TABLET (FP) PO SCH (10:01)
[2016-12-19] MEDS: CEFAZOLIN 2 GM/D5W 50 ML IVPB SCH ×2 (10:02→18:13)
[2016-12-19] MEDS: PANTOPRAZOLE 40 MG TABLET (FP) PO SCH (10:02)
[2016-12-19] MEDS: CARVEDILOL 12.5 MG TABLET (FP) PO SCH ×2 (10:07→21:21)
--- NOTE | 2016-12-19 10:36 | CONS ---
DATE OF CONSULTATION: DATE OF DICTATION: 12/19/2016 REQUESTING PHYSICIAN: The hospitalist service. HISTORY OF PRESENT ILLNESS: This is a 46-year-old man who presents to the emergency room with complaints of 2 weeks of increasing erythema and redness and edema of his legs. They have become quite swollen over the last 2 weeks. He initially thought it was a flare of his gout, but they worsened. He started having drainage from the legs that was clear in color. He had no associated fevers or chills. He does report that he sometimes has scraped his legs. He has no pets, so he has not had any scratches. He has had no insect bites. He came to the emergency room on December 18 with these complaints. While in the ER, he was noted to be in atrial fibrillation, and he was admitted to telemetry. He was also given some IV furosemide in the emergency room given his lower extremity edema. He reports feeling much better this morning with decrease in the edema of his legs (they have stopped weeping) and with decreased erythema. PAST MEDICAL HISTORY: Notable for hypertension, hypercholesterolemia. He has a history of gout and obesity. He has had a prior cardiac catheterization, results unknown and hypertension. He has had bilateral knee arthroscopies. He has had a cholecystectomy and left hernia repair. FAMILY HISTORY: Notable for diabetes and coronary artery disease. 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 SOCIAL HISTORY: No history of any cigarette use. He used alcohol and cocaine from age 11 and has stopped using both for the last 36 days. ALLERGIES: He has no known drug allergies. MEDICATIONS: As an outpatient include Welchol, colchicine, losartan, metoprolol, aspirin, allopurinol, furosemide, potassium, Ventolin inhaler, and tramadol. He is followed at [address] [place] [address] in the clinic. REVIEW OF SYSTEMS: He denies any fevers or chills. He has had weight gain. His legs have excoriations and bangs, but he denies any insect bites or scratches. There have been no fevers or chills. He reports being HIV and hepatitis C negative. He is tested regularly at his clinic. PHYSICAL EXAMINATION General: He is a pleasant man in no acute distress. He weighs 380 pounds with a BMI of 48. Vital signs: Temperature is 98, pulse of 88, blood pressure 157/88, respiratory rate 20, and O2 saturation on room air is 97%. HEENT: He is normocephalic. His eyes are anicteric. Neck: Supple. Lungs: Clear to auscultation. Heart: Regular rate and rhythm. Abdomen: Soft. He has got a large pannus. He has some erythema along his lower abdomen, which he reports is markedly improved. Extremities: He has bilateral pitting edema, which he states is markedly improved. He has some areas of pigmentation of both his legs, where he says he had banged himself and which were weeping. There is no longer any drainage. His legs are diffusely erythematous and warm to touch. DIAGNOSTIC DATA: Labs are notable for a white count of 7.2, hemoglobin 13.7, platelets are 168. BUN is 15, creatinine 0.9. LFTs are normal. Hemoglobin A1c is 6.1. Urinalysis is negative. Blood cultures are pending. Chest x-ray shows cardiomegaly with no active disease. SUMMARY: This is a morbidly obese 46-year-old man with cellulitis of both lower extremities, new atrial fibrillation, congestive heart failure, hypertension, morbid obesity, and substance use (alcohol and cocaine). I would continue his Ancef, increase his dose to 2 g q.8; management of atrial fibrillation, hypertension, and heart failure per Cardiology; would query whether he has obstructive sleep apnea, which should be evaluated as an outpatient. I spoke to him at length about weight loss, which he is interested in doing. He declines substance use referrals. He declines repeat HIV and hepatitis C testing, which he states he has done regularly at his clinic. LUCINDA BLOCK M.D. [id number]
--- NOTE | 2016-12-19 17:40 | PN ---
Physical Exam: SUBJECTIVE: Patient seen and examined. He says he has a high pain tolerance. No acute complaints. OBJECTIVE: Vital Signs Period Temp Pulse Resp BP Sys/Jean Pulse Ox Last 24 Hr 97.8 F-98.2 F 77-102 16-20 140-168/78-102 96-97 PE Neuro: alert, awake, cn 2-12intact Pulm: CTAB CV: s1 s2 irregular rhythm regular rate Abd: obese s nt nd +bs Ext: b/l le erythema, L leg with darkened red wounds now closed Laboratory Results - last 24 hr 12/18/16 12/19/16 12/19/16 19:24 05:35 05:35 WBC 7.2 RBC 4.58 Hgb 13.7 Hct 42.4 MCV 92.6 MCHC 32.4 RDW 15.2 Plt Count 168 MPV 9.1 Neutrophils % 52.5 Lymphocytes % 33.6 Monocytes % 9.6 Eosinophils % 3.7 Basophils % 0.6 Sodium 141 Potassium 4.4 D Chloride 102 Carbon Dioxide 33 H Anion Gap 6 L BUN 15 Creatinine 0.9 Creat Clearance w eGFR > 60 Random Glucose 91 D Hemoglobin A1c % Calcium 8.6 Total Bilirubin 0.9 D AST 36 ALT 30 Alkaline Phosphatase 79 Creatine Kinase 75 Troponin I < 0.02 Total Protein 6.6 Albumin 3.2 L Triglycerides 104 Cholesterol 142 Total LDL Cholesterol 91 HDL Cholesterol 37 L 12/19/16 05:35 WBC RBC Hgb Hct MCV MCHC RDW Plt Count MPV Neutrophils % Lymphocytes % Monocytes % Eosinophils % Basophils % Sodium Potassium Chloride Carbon Dioxide Anion Gap BUN Creatinine Creat Clearance w eGFR Random Glucose Hemoglobin A1c % 6.1 H Calcium Total Bilirubin AST ALT Alkaline Phosphatase Creatine Kinase Troponin I Total Protein Albumin Triglycerides Cholesterol Total LDL Cholesterol HDL Cholesterol Active Medications Generic Name Dose Route Start Last Admin Trade Name Freq PRN Reason Stop Dose Admin Albuterol Sulfate 2 puff 12/18/16 06:46 Ventolin Hfa Inhaler - IH Q4H PRN SHORT OF BREATH/WHEEZING Allopurinol 300 mg 12/18/16 10:00 12/19/16 10:01 Zyloprim - PO 300 mg DAILY [facility] Administration Amlodipine Besylate 5 mg 12/18/16 11:45 12/19/16 10:01 Norvasc - PO 5 mg DAILY [facility] Administration Apixaban 5 mg 12/18/16 22:00 12/19/16 10:01 Eliquis - PO 5 mg BID [facility] Administration Carvedilol 12.5 mg 12/19/16 10:00 12/19/16 10:07 Coreg - PO 12.5 mg BID [facility] Administration Colchicine 0.6 mg 12/18/16 10:00 12/19/16 10:01 Colcrys - PO 0.6 mg DAILY [facility] Administration Furosemide 40 mg 12/18/16 14:00 12/19/16 14:35 Lasix Injection - IVPUSH 40 mg BID@0600,1400 [facility] Administration Cefazolin Sodium/Dextrose 50 mls @ 100 mls/hr 12/19/16 10:00 12/19/16 10:02 Ancef 2 Gm Premixed Ivpb - IVPB 100 mls/hr Q8H-IV [facility] Administration Losartan Potassium 100 mg 12/18/16 10:00 12/19/16 10:01 Cozaar - PO 100 mg DAILY [facility] Administration Non-Formulary Medication 625 mg 12/18/16 10:00 Colesevelam Hcl [Welchol] PO DAILY [facility] Pantoprazole Sodium 40 mg 12/19/16 10:00 12/19/16 10:02 Protonix - PO 40 mg DAILY [facility] Administration Spironolactone 50 mg 12/19/16 10:00 12/19/16 10:01 Aldactone - PO 50 mg DAILY [facility] Administration Tramadol HCl 50 mg 12/18/16 06:59 Ultram - PO Q6H PRN PAIN Imagin/11 Echo: Mild-mod NATASHA, mild dilated LV with mild decrease LV fxn, mild cLVH, mod MR, TR, RVSP 39 mmHg Assessment: 46 year old male with PMH HTN, HLD, gout, Morbid obesity, Polysubstance abuse admitted with bilateral LE edema, erythema, weeping excoriations, found cellulitis. Plan: 1. Bilateral LE Cellulitis - Ancef 2g Q8H per ID 2. PAF, CHADSVASc 2 - Eliquis 5mg BID - ECHO above 3. Acute on chronic CHF - Coreg 12.5mg BID - Continue Cozaar 100mg daily - IV lasix 40mg BID - Increase Aldactone 50mg daily 4. HTN - Continue Norvasc 5mg daily 5. HLD - Stain 6. Gout - Allopuriniol 300mg daily - Colchicine 0.6mg daily 7. Hyperglycemia - hgb a1c 6.1 Visit type - Emergency Visit Emergency Visit: Yes ED Registration Date: 12/18/16 Care time: The patient presented to the Emergency Department on the above date and was hospitalized for further evaluation of their emergent condition. - New Patient This patient is new to me today: Yes Date on this admission: 12/19/16 - Critical Care Critical Care patient: No - Discharge Referral Referred to [facility] Med P.C.: No
[2016-12-20] MEDS: CEFAZOLIN 2 GM/D5W 50 ML IVPB SCH ×3 (01:20→19:10)
[2016-12-20] MEDS: FUROSEMIDE 40 MG/4 ML INJECTABLE VIAL IVPUSH SCH ×2 (06:06→14:31)
--- NOTE | 2016-12-20 10:18 | PN ---
Progress Note, Physician History of Present Illness: Dyspnea on exertion and LE edema improving with diuresis. - Current Medication List Current Medications: Active Medications Albuterol Sulfate (Ventolin Hfa Inhaler -) 2 puff IH Q4H PRN PRN Reason: SHORT OF BREATH/WHEEZING Allopurinol (Zyloprim -) 300 mg PO DAILY [facility] Last Admin: 12/19/16 10:01 Dose: 300 mg Amlodipine Besylate (Norvasc -) 5 mg PO DAILY [facility] Last Admin: 12/19/16 10:01 Dose: 5 mg Apixaban (Eliquis -) 5 mg PO BID [facility] Last Admin: 12/19/16 21:21 Dose: 5 mg Carvedilol (Coreg -) 12.5 mg PO BID [facility] Last Admin: 12/19/16 21:21 Dose: 12.5 mg Colchicine (Colcrys -) 0.6 mg PO DAILY [facility] Last Admin: 12/19/16 10:01 Dose: 0.6 mg Furosemide (Lasix Injection -) 40 mg IVPUSH BID@0600,1400 [facility] Last Admin: 12/20/16 06:06 Dose: 40 mg Cefazolin Sodium/Dextrose (Ancef 2 Gm Premixed Ivpb -) 50 mls @ 100 mls/hr IVPB Q8H-IV [facility] Last Admin: 12/20/16 01:20 Dose: 100 mls/hr Losartan Potassium (Cozaar -) 100 mg PO DAILY [facility] Last Admin: 12/19/16 10:01 Dose: 100 mg Non-Formulary Medication (Colesevelam Hcl [Welchol]) 625 mg PO DAILY [facility] Pantoprazole Sodium (Protonix -) 40 mg PO DAILY [facility] Last Admin: 12/19/16 10:02 Dose: 40 mg Spironolactone (Aldactone -) 50 mg PO DAILY [facility] Last Admin: 12/19/16 10:01 Dose: 50 mg Tramadol HCl (Ultram -) 50 mg PO Q6H PRN PRN Reason: PAIN - Objective Vital Signs: Vital Signs Temperature 97.5 F L 12/20/16 07:58 Pulse Rate 77 12/20/16 07:58 Respiratory Rate 18 12/20/16 09:00 Blood Pressure 138/92 12/20/16 07:58 O2 Sat by Pulse Oximetry (%) 96 12/20/16 09:00 Constitutional: Yes: No Distress, Calm Neck: Yes: Supple Cardiovascular: Yes: Pulse Irregular Respiratory: Yes: Regular, Diminished Gastrointestinal: Yes: Normal Bowel Sounds, Soft, Abdomen, Obese Edema: Yes Edema: LLE: 1+, RLE: 1+ Labs: CBC, BMP 12/19/16 05:35 12/19/16 05:35 INR, PTT INR 1.23 (0.82-1.09) H 12/18/16 02:45 Problem List - Problems (1) Afib Code(s): I48.91 - UNSPECIFIED ATRIAL FIBRILLATION Qualifiers: Atrial fibrillation type: persistent Qualified Code(s): I48.1 - Persistent atrial fibrillation (2) Cellulitis Code(s): L03.90 - CELLULITIS, UNSPECIFIED Qualifiers: Site of cellulitis of extremity: lower extremity Laterality: unspecified laterality (3) Obesity Code(s): E66.9 - OBESITY, UNSPECIFIED Qualifiers: Obesity type: due to excess calories (4) Substance abuse Code(s): F19.10 - OTHER PSYCHOACTIVE SUBSTANCE ABUSE, UNCOMPLICATED (5) Acute on chronic diastolic (congestive) heart failure Code(s): I50.33 - ACUTE ON CHRONIC DIASTOLIC (CONGESTIVE) HEART FAILURE (6) Hypertensive cardiomyopathy Code(s): I11.9 - HYPERTENSIVE HEART DISEASE WITHOUT HEART FAILURE I42.9 - CARDIOMYOPATHY, UNSPECIFIED Qualifiers: Heart failure presence: with heart failure Qualified Code(s): I11.0 - Hypertensive heart disease with heart failure (7) Obstructive sleep apnea Code(s): G47.33 - OBSTRUCTIVE SLEEP APNEA (ADULT) (PEDIATRIC) Assessment/Plan 12/18 Echo: Mild-mod NATASHA, mild dilated LV with mild decrease LV fxn, mild cLVH, mod MR, TR, RVSP 39 mmHg 1. Acute on chronic LV diastolic failure NYHA II improving 2. Paroxysmal atrial fibrillation duration of which unknown [id number] score 2 on NOAC 3. HTN, BP improved 4. Hypercholesterolemia 5. Hyperglycemia 6. Leg cellulitis 7. Likely obstructive sleep apnea with pulmonary HTN 8. Morbid obesity 9. Polysubstance abuse- etoh and cocaine (last use over month ago) PLAN: 1. Continue carvedilol 12.5 bid (with caution given h/o cocaine abuse) 2. Continue Cozaar 100 qd 3. Continue Norvasc 5 qd 4. Continue Lasix 40 IV bid and Aldactone 50 qd 5. Continue Eliquis 5 bid 6. Antibiotics as per the primary team 7. Recommend sleep studies as outpatient, bipap nightly 8. Abstinence from toxic habits, patient agrees 9. Encourage ambulation
[2016-12-20] MEDS ORDERED: PT OWN MED DRAWER 7, Y5N ONE ×2 (11:31→21:09)
[2016-12-20] MEDS: amLODIPine BESYLATE 5 MG TABLET (FP) PO SCH (11:32)
[2016-12-20] MEDS: SPIRONOLACTONE 25 MG TABLET (FP) PO SCH (11:32)
[2016-12-20] MEDS: PANTOPRAZOLE 40 MG TABLET (FP) PO SCH (11:33)
[2016-12-20] MEDS: APIXABAN 5 MG TABLET PO SCH ×2 (11:33→21:50)
[2016-12-20] MEDS: ALLOPURINOL 300 MG TABLET (FP) PO SCH (11:33)
[2016-12-20] MEDS: COLCHICINE 0.6 MG TABLET (FP) PO SCH (11:33)
[2016-12-20] MEDS: CARVEDILOL 12.5 MG TABLET (FP) PO SCH ×2 (11:33→21:20)
[2016-12-20] MEDS: LOSARTAN POTASSIUM 50 MG TABLET (FP) PO SCH (11:33)
--- NOTE | 2016-12-20 15:36 | PN ---
Progress Note (short form) - Note Progress Note: doing well Vital Signs Period Temp Pulse Resp BP Sys/Jean Pulse Ox Last 24 Hr 97.5 F-98.3 F 77-89 18-20 138-158/86-108 95-96 cor-rrr llungs clear abd soft,nt ext lessedema, less erythema CBC, BMP 12/19/16 05:35 12/19/16 05:35 Microbiology 12/18/16 04:56 Blood - Peripheral Venous Blood Culture - Preliminary NO GROWTH OBTAINED AFTER 48 HOURS, INCUBATION TO CONTINUE FOR 3 DAYS. 12/18/16 04:56 Blood - Peripheral Venous Blood Culture - Preliminary NO GROWTH OBTAINED AFTER 48 HOURS, INCUBATION TO CONTINUE FOR 3 DAYS. Current Medications Albuterol Sulfate (Ventolin Hfa Inhaler -) 2 puff IH Q4H PRN PRN Reason: SHORT OF BREATH/WHEEZING Allopurinol (Zyloprim -) 300 mg PO DAILY [facility] Last Admin: 12/20/16 11:33 Dose: 300 mg Amlodipine Besylate (Norvasc -) 5 mg PO DAILY [facility] Last Admin: 12/20/16 11:32 Dose: 5 mg Apixaban (Eliquis -) 5 mg PO BID [facility] Last Admin: 12/20/16 11:33 Dose: 5 mg Carvedilol (Coreg -) 12.5 mg PO BID [facility] Last Admin: 12/20/16 11:33 Dose: 12.5 mg Colchicine (Colcrys -) 0.6 mg PO DAILY [facility] Last Admin: 12/20/16 11:33 Dose: 0.6 mg Furosemide (Lasix Injection -) 40 mg IVPUSH BID@0600,1400 [facility] Last Admin: 12/20/16 14:31 Dose: 40 mg Cefazolin Sodium/Dextrose (Ancef 2 Gm Premixed Ivpb -) 50 mls @ 100 mls/hr IVPB Q8H-IV [facility] Last Admin: 12/20/16 11:33 Dose: 100 mls/hr Losartan Potassium (Cozaar -) 100 mg PO DAILY [facility] Last Admin: 12/20/16 11:33 Dose: 100 mg Non-Formulary Medication (Colesevelam Hcl [Welchol]) 625 mg PO DAILY [facility] Pantoprazole Sodium (Protonix -) 40 mg PO DAILY [facility] Last Admin: 12/20/16 11:33 Dose: 40 mg Spironolactone (Aldactone -) 50 mg PO DAILY [facility] Last Admin: 12/20/16 11:32 Dose: 50 mg Tramadol HCl (Ultram -) 50 mg PO Q6H PRN PRN Reason: PAIN a/p doing well volume overload resolving with diuresis cellulitis- much improved, can switch to po keflex 500 tid for 7 days htn please call back if needed Problem List - Problems (1) Cellulitis Code(s): L03.90 - CELLULITIS, UNSPECIFIED Qualifiers: Site of cellulitis of extremity: lower extremity Laterality: unspecified laterality (2) Afib Code(s): I48.91 - UNSPECIFIED ATRIAL FIBRILLATION Qualifiers: Atrial fibrillation type: persistent Qualified Code(s): I48.1 - Persistent atrial fibrillation (3) Substance abuse Code(s): F19.10 - OTHER PSYCHOACTIVE SUBSTANCE ABUSE, UNCOMPLICATED (4) Obesity Code(s): E66.9 - OBESITY, UNSPECIFIED Qualifiers: Obesity type: due to excess calories
--- NOTE | 2016-12-20 18:07 | PN ---
Physical Exam: SUBJECTIVE: Patient seen and examined. Pt feels good, his legs are looking better he says and he has palpitations. d/w . OBJECTIVE: Vital Signs Period Temp Pulse Resp BP Sys/Jean Pulse Ox Last 24 Hr 97.5 F-98.7 F 77-89 17-20 138-158/92-108 95-97 PE Neuro: alert, awake, cn 2-12intact Pulm: CTAB CV: s1 s2 irregular rhythm regular rate Abd: obese s nt nd +bs Ext: mild erythema, swelling decreased +1 Active Medications Generic Name Dose Route Start Last Admin Trade Name Freq PRN Reason Stop Dose Admin Albuterol Sulfate 2 puff 12/18/16 06:46 Ventolin Hfa Inhaler - IH Q4H PRN SHORT OF BREATH/WHEEZING Allopurinol 300 mg 12/18/16 10:00 12/20/16 11:33 Zyloprim - PO 300 mg DAILY [facility] Administration Amlodipine Besylate 5 mg 12/18/16 11:45 12/20/16 11:32 Norvasc - PO 5 mg DAILY [facility] Administration Apixaban 5 mg 12/18/16 22:00 12/20/16 11:33 Eliquis - PO 5 mg BID [facility] Administration Carvedilol 12.5 mg 12/19/16 10:00 12/20/16 11:33 Coreg - PO 12.5 mg BID [facility] Administration Colchicine 0.6 mg 12/18/16 10:00 12/20/16 11:33 Colcrys - PO 0.6 mg DAILY [facility] Administration Furosemide 40 mg 12/18/16 14:00 12/20/16 14:31 Lasix Injection - IVPUSH 40 mg BID@0600,1400 [facility] Administration Cefazolin Sodium/Dextrose 50 mls @ 100 mls/hr 12/19/16 10:00 12/20/16 11:33 Ancef 2 Gm Premixed Ivpb - IVPB 100 mls/hr Q8H-IV [facility] Administration Losartan Potassium 100 mg 12/18/16 10:00 12/20/16 11:33 Cozaar - PO 100 mg DAILY [facility] Administration Non-Formulary Medication 625 mg 12/18/16 10:00 Colesevelam Hcl [Welchol] PO DAILY [facility] Pantoprazole Sodium 40 mg 12/19/16 10:00 12/20/16 11:33 Protonix - PO 40 mg DAILY [facility] Administration Spironolactone 50 mg 12/19/16 10:00 12/20/16 11:32 Aldactone - PO 50 mg DAILY [facility] Administration Tramadol HCl 50 mg 12/18/16 06:59 Ultram - PO Q6H PRN PAIN Imagin/11 Echo: Mild-mod NATASHA, mild dilated LV with mild decrease LV fxn, mild cLVH, mod MR, TR, RVSP 39 mmHg Assessment: 46 year old male with PMH HTN, HLD, gout, Morbid obesity, Polysubstance abuse admitted with bilateral LE edema, erythema, weeping excoriations, found cellulitis. Plan: 1. Bilateral LE Cellulitis - Ancef 2g Q8H per ID - PO keflex tomorrow 2. PAF, CHADSVASc 2 - Eliquis 5mg BID - ECHO above 3. Acute on chronic CHF - Coreg 12.5mg BID - Continue Cozaar 100mg daily - IV lasix 40mg BID - Aldactone 50mg daily 4. HTN - Continue Norvasc 5mg daily 5. HLD - Statin 6. Gout - Allopuriniol 300mg daily - Colchicine 0.6mg daily 7. Hyperglycemia - Hgb a1c 6.1 Visit type - Emergency Visit Emergency Visit: Yes ED Registration Date: 12/18/16 Care time: The patient presented to the Emergency Department on the above date and was hospitalized for further evaluation of their emergent condition. - New Patient This patient is new to me today: No - Critical Care Critical Care patient: No
[2016-12-21] MEDS: CEFAZOLIN 2 GM/D5W 50 ML IVPB SCH ×2 (02:04→12:22)
[2016-12-21] MEDS: FUROSEMIDE 40 MG/4 ML INJECTABLE VIAL IVPUSH SCH (05:29)
[2016-12-21] MEDS: amLODIPine BESYLATE 5 MG TABLET (FP) PO SCH (11:26)
[2016-12-21] MEDS: COLCHICINE 0.6 MG TABLET (FP) PO SCH (11:26)
[2016-12-21] MEDS: SPIRONOLACTONE 25 MG TABLET (FP) PO SCH (11:26)
[2016-12-21] MEDS: PANTOPRAZOLE 40 MG TABLET (FP) PO SCH (11:26)
[2016-12-21] MEDS: ALLOPURINOL 300 MG TABLET (FP) PO SCH (11:26)
[2016-12-21] MEDS: CARVEDILOL 12.5 MG TABLET (FP) PO SCH (11:26)
[2016-12-21] MEDS ORDERED: PT OWN MED DRAWER 7, Y5N ONE (12:11)
[2016-12-21] MEDS: APIXABAN 5 MG TABLET PO SCH (12:22)
--- NOTE | 2016-12-21 12:23 | PN ---
Progress Note, Physician History of Present Illness: Dyspnea on exertion and LE edema improving with diuresis. - Current Medication List Current Medications: Active Medications Albuterol Sulfate (Ventolin Hfa Inhaler -) 2 puff IH Q4H PRN PRN Reason: SHORT OF BREATH/WHEEZING Allopurinol (Zyloprim -) 300 mg PO DAILY [facility] Last Admin: 12/21/16 11:26 Dose: 300 mg Amlodipine Besylate (Norvasc -) 5 mg PO DAILY [facility] Last Admin: 12/21/16 11:26 Dose: 5 mg Apixaban (Eliquis -) 5 mg PO BID [facility] Last Admin: 12/20/16 21:50 Dose: 5 mg Carvedilol (Coreg -) 12.5 mg PO BID [facility] Last Admin: 12/21/16 11:26 Dose: 12.5 mg Colchicine (Colcrys -) 0.6 mg PO DAILY [facility] Last Admin: 12/21/16 11:26 Dose: 0.6 mg Furosemide (Lasix Injection -) 40 mg IVPUSH BID@0600,1400 [facility] Last Admin: 12/21/16 05:29 Dose: 40 mg Cefazolin Sodium/Dextrose (Ancef 2 Gm Premixed Ivpb -) 50 mls @ 100 mls/hr IVPB Q8H-IV [facility] Last Admin: 12/21/16 02:04 Dose: 100 mls/hr Losartan Potassium (Cozaar -) 100 mg PO DAILY [facility] Last Admin: 12/20/16 11:33 Dose: 100 mg Non-Formulary Medication (Colesevelam Hcl [Welchol]) 625 mg PO DAILY [facility] Pantoprazole Sodium (Protonix -) 40 mg PO DAILY [facility] Last Admin: 12/21/16 11:26 Dose: 40 mg Spironolactone (Aldactone -) 50 mg PO DAILY [facility] Last Admin: 12/21/16 11:26 Dose: 50 mg - Objective Vital Signs: Vital Signs Temperature 98.4 F 12/21/16 06:00 Pulse Rate 87 12/21/16 06:00 Respiratory Rate 20 12/21/16 06:00 Blood Pressure 162/108 12/21/16 06:00 O2 Sat by Pulse Oximetry (%) 97 12/20/16 21:00 Constitutional: Yes: No Distress, Calm, Obese Neck: Yes: Supple Cardiovascular: Yes: Regular Rate and Rhythm Respiratory: Yes: Regular, Diminished Gastrointestinal: Yes: Normal Bowel Sounds, Soft, Abdomen, Obese Edema: Yes Edema: LLE: Trace, RLE: Trace Labs: CBC, BMP 12/19/16 05:35 12/19/16 05:35 INR, PTT INR 1.23 (0.82-1.09) H 12/18/16 02:45 Problem List - Problems (1) Afib Code(s): I48.91 - UNSPECIFIED ATRIAL FIBRILLATION Qualifiers: Atrial fibrillation type: persistent Qualified Code(s): I48.1 - Persistent atrial fibrillation (2) Cellulitis Code(s): L03.90 - CELLULITIS, UNSPECIFIED Qualifiers: Site of cellulitis of extremity: lower extremity Laterality: unspecified laterality (3) Obesity Code(s): E66.9 - OBESITY, UNSPECIFIED Qualifiers: Obesity type: due to excess calories (4) Substance abuse Code(s): F19.10 - OTHER PSYCHOACTIVE SUBSTANCE ABUSE, UNCOMPLICATED (5) Acute on chronic diastolic (congestive) heart failure Code(s): I50.33 - ACUTE ON CHRONIC DIASTOLIC (CONGESTIVE) HEART FAILURE (6) Hypertensive cardiomyopathy Code(s): I11.9 - HYPERTENSIVE HEART DISEASE WITHOUT HEART FAILURE I42.9 - CARDIOMYOPATHY, UNSPECIFIED Qualifiers: Heart failure presence: with heart failure Qualified Code(s): I11.0 - Hypertensive heart disease with heart failure (7) Obstructive sleep apnea Code(s): G47.33 - OBSTRUCTIVE SLEEP APNEA (ADULT) (PEDIATRIC) Assessment/Plan 12/18 Echo: Mild-mod NATASHA, mild dilated LV with mild decrease LV fxn, mild cLVH, mod MR, TR, RVSP 39 mmHg 1. Acute on chronic LV diastolic failure NYHA II improving 2. Paroxysmal atrial fibrillation duration of which unknown [id number] score 2 on NOAC 3. HTN, BP improved 4. Hypercholesterolemia 5. Hyperglycemia 6. Leg cellulitis 7. Likely obstructive sleep apnea with pulmonary HTN 8. Morbid obesity 9. Polysubstance abuse- etoh and cocaine (last use over month ago) 10. Gout PLAN: 1. Continue carvedilol 12.5 bid (with caution given h/o cocaine abuse) 2. Continue Cozaar 100 qd, welchol 635 qd 3. Continue Norvasc 5 qd 4. Change Lasix 40 po bid and Aldactone 50 qd 5. Continue Eliquis 5 bid 6. Complete antibiotics as per the primary team 7. Recommend sleep studies as outpatient 8. Abstinence from toxic habits, patient agrees 9. Encourage ambulation, d/c planning with f/u in office
[2016-12-21] MEDS: LOSARTAN POTASSIUM 50 MG TABLET (FP) PO SCH (12:25)
[2016-12-21] MEDS ORDERED: FUROSEMIDE 40 MG TABLET (FP) PO SCH (14:00)
[2016-12-21 14:52] VITALS: PULSE 89; TEMP 98.2
[2016-12-21 15:02] VITALS: BP 155/101
--- NOTE | 2016-12-21 15:24 | DS ---
Physical Exam: SUBJECTIVE: Patient seen and examined. He feels well. He is ambulating the halls without dyspnea, oxygen or distress. OBJECTIVE: Vital Signs Period Temp Pulse Resp BP Sys/Jean Pulse Ox Last 24 Hr 98.2 F-99 F 84-96 18-20 133-162/85-108 97-97 PE Neuro: alert, awake, cn 2-12intact Pulm: CTAB CV: s1 s2 irregular rhythm regular rate Abd: obese s nt nd +bs Ext: mild erythema, swelling decreased +1 HOSPITAL COURSE: Date of Admission:12/18/16 Date of Discharge: 12/21/16 Minutes to complete discharge: 35 Discharge Summary Reason For Visit: BILATERAL LOWER EXTREMITIES EDEMA Current Active Problems Acute on chronic diastolic (congestive) heart failure (Acute) Afib (Acute) Bilateral lower extremity edema (Acute) Cellulitis (Acute) Hypertensive cardiomyopathy (Acute) Obesity (Acute) Obstructive sleep apnea (Acute) Open wound of left knee, leg, and ankle (Acute) Substance abuse (Acute) Hospital Course: Initial Hospital Course: Briefly, this 46 year old male with a past medical history of HTN, HLD, gout, obesity presented to the ED with bilat lower extremity swelling and erythema. Symptoms started 2 weeks prior to admission worsening with excoriations to LLE and weeping serous fluid. Pt stated he became concerned when the redness and swelling extended above knee. Imagin/11 Echo: Mild-mod NATASHA, mild dilated LV with mild decrease LV fxn, mild cLVH, mod MR, TR, RVSP 39 mmHg Subsequent Hospital Course/Progress Note/Discharge Summary by a/p: Assessment: 46 year old male with PMH HTN, HLD, gout, Morbid obesity, Polysubstance abuse admitted with bilateral LE edema, erythema, weeping excoriations, found cellulitis. Plan: 1. Bilateral LE Cellulitis - s/p Ancef 3 days - Home with keflex x 7 days 2. PAF, CHADSVASc 2 - In sinus, rate controlled - Started on Eliquis 5mg BID; to continue - ECHO above 3. Acute on chronic CHF - Metoprolol switched to Coreg 12.5mg BID - Continue Cozaar 100mg daily - Transition to lasix 40mg BID x 7 days then 40mg daily (pt aware) - Started aldactone 50mg daily 4. HTN - Started Norvasc 5mg daily 5. HLD - Continue Welchol daily 6. Gout - Allopuriniol 300mg daily - Colchicine 0.6mg daily 7. Hyperglycemia - Hgb a1c 6.1 - Dietary counseling per RD completed, pt aware and wiling to comply Dispo: - Home with above meds, teaching done per RN regarding new home regemin - PCP and cardiology follow up in 1-2 weeks - PT aware to ask PCP For sleep referral for MAGGY as well as number to sleep lab at [facility] possibly problematic Condition: Stable - Instructions Diet, Activity, Other Instructions: Please return to the ED for any new, persistent, or worsening symptoms. Follow up with your PCP in 1 week Take lasix 40mg twice per day x7 days and then resume home dose of 40mg daily Continue oral antibiotics as directed and until completed Take only medications as directed on discharge home medication list Cardiology referral enclosed follow up in 2 weeks You will need to have a sleep study done, have your PCP refer you. Referrals: Mojgan West MD [Primary Care Provider] - German Baires MD [Staff Physician] - Disposition: HOME - Home Medications Comprehensive Discharge Medication List: Ambulatory Orders Colesevelam HCl [Welchol] 625 mg PO DAILY 10/05/12 Colchicine 0.6 mg PO DAILY 11/05/14 Aspirin [ASA -] 81 mg PO DAILY 01/19/16 Allopurinol [Zyloprim -] 300 mg PO DAILY 07/19/16 Potassium Chloride [Klor-Con 10] 10 meq PO DAILY 07/19/16 Albuterol Sulfate Inhaler - [Ventolin HFA Inhaler -] 1 - 2 inh PO Q4H 12/18/16 Amlodipine Besylate [Norvasc -] 5 mg PO DAILY #30 tablet 12/21/16 Apixaban [Eliquis -] 5 mg PO BID #60 tablet 12/21/16 Carvedilol [Coreg -] 12.5 mg PO BID #60 tablet 12/21/16 Cephalexin Monohydrate [Keflex -] 500 mg PO TID #21 capsule 12/21/16 Furosemide [Lasix -] 40 mg PO DAILY #40 tablet 12/21/16 Losartan Potassium [Cozaar] 100 mg PO DAILY #30 tablet 12/21/16 Spironolactone [Aldactone] 50 mg PO DAILY #30 tablet 12/21/16 This patient is new to me today: No Emergency Visit: Yes ED Registration Date: 12/18/16 Care time: The patient presented to the Emergency Department on the above date and was hospitalized for further evaluation of their emergent condition. Critical Care patient: No - Discharge Referral Referred to [facility] No
== END 2016-12-21 15:52 | disposition home or self-care (01) | DRG 383 ==
LOC: JER 23:35 → JERBED 12-18 03:58 → J4W 12-18 14:56 → J7W 12-20 13:11
PROVIDERS: ADMIT Internal Medicine; ATTEND Nurse Practitioner Acute Care
DX: L03.116 Cellulitis of left lower limb (principal); L03.115 Cellulitis of right lower limb; E66.01 Morbid (severe) obesity due to excess calories; Z68.42 Body mass index [BMI] 45.0-49.9, adult; I25.119 Atherosclerotic heart disease of native coronary artery with unspecified angina pectoris; I48.0 Paroxysmal atrial fibrillation; I11.0 Hypertensive heart disease with heart failure; I50.33 Acute on chronic diastolic (congestive) heart failure; G47.33 Obstructive sleep apnea (adult) (pediatric); M10.9 Gout, unspecified; E78.5 Hyperlipidemia, unspecified; E87.70 Fluid overload, unspecified
CPT/HCPCS: 36415; 71020-TC; 80048; 80053; 80061; 81003; 81015; 82550; 83036; 83721; 83735; 83880; 84484; 85025; 85610; 87040; 93005; 93010; 93306-TC; 99284-25

== ENCOUNTER 2017-06-05 11:41 | Observation (INO) | payer SELFPAY ==
[2017-06-05] MEDS ORDERED: ASPIRIN 325 MG TABLET PO ONE (11:55)
--- NOTE | 2017-06-05 11:57 | PDOC ---
History of Present Illness - General Stated Complaint: CHEST PAIN Time Seen by Provider: 06/05/17 11:44 History Source: Patient - History of Present Illness Presenting Symptoms: Chest Pain Timing/Duration: reports: constant Severity/Quality: reports: severe Past History - Past Medical History Allergies/Adverse Reactions: Allergies Allergy/AdvReac Type Severity Reaction Status Date / Time No Known Allergies Allergy Verified 12/18/16 02:34 Home Medications: Ambulatory Orders RX: Colesevelam HCl [Welchol] 625 mg PO DAILY 10/05/12 RX: Colchicine 0.6 mg PO DAILY 11/05/14 RX: Aspirin [ASA -] 81 mg PO DAILY 01/19/16 RX: Allopurinol [Zyloprim -] 300 mg PO DAILY 07/19/16 RX: Potassium Chloride [Klor-Con 10] 10 meq PO DAILY 07/19/16 RX: Albuterol Sulfate Inhaler - [Ventolin HFA Inhaler -] 1 - 2 inh PO Q4H Amlodipine Besylate [Norvasc -] 5 mg PO DAILY #30 tablet 12/21/16 Cephalexin Monohydrate [Keflex -] 500 mg PO TID #21 capsule 12/21/16 Furosemide [Lasix -] 40 mg PO DAILY #40 tablet 12/21/16 Losartan Potassium [Cozaar] 100 mg PO DAILY #30 tablet 12/21/16 RX: Apixaban [Eliquis -] 5 mg PO BID #60 tablet 12/21/16 RX: Carvedilol [Coreg -] 12.5 mg PO BID #60 tablet 12/21/16 Spironolactone [Aldactone] 50 mg PO DAILY #30 tablet 12/21/16 Anemia: No Asthma: No Cancer: No Cardiac Disorders: No CVA: No COPD: No CHF: No Dementia: No Diabetes: No GI Disorders: No Disorders: No HTN: No Hypercholesterolemia: Yes Liver Disease: No Seizures: No Thyroid Disease: No - Surgical History Abdominal Surgery: No Appendectomy: No Cardiac Surgery: No Cholecystectomy: Yes GI Surgery: Yes (Hernia) Lung Surgery: No Neurologic Surgery: No Orthopedic Surgery: No - Immunization History Td Vaccination: Yes Immunization Up to Date: Yes - Suicide/Smoking/Psychosocial Hx Smoking Status: No Smoking History: Never smoked Years of Tobacco Use: 0 Have you smoked in the past 12 months: No Number of Cigarettes Smoked Daily: 0 Cigars Per Day: 0 Hx Alcohol Use: No Drug/Substance Use Hx: No Substance Use Type: None Hx Substance Use Treatment: No Cardiac Specific PMH - Complaint Specific PMHX Pacemaker: No Review of Systems - Review of Systems Constitutional: No: Chills, Fever Respiratory: Yes: Shortness of Breath. No: Cough Cardiac (ROS): Yes: Chest Pain, Lightheadedness. No: Palpitations ABD/GI: No: Nausea, Vomiting Neurological: Yes: Dizziness. No: Headache, Weakness *Physical Exam - Vital Signs Last Vital Signs Temp Pulse Resp BP Pulse Ox 98.1 F 88 20 85/55 100 06/05/17 12:23 06/05/17 13:00 06/05/17 12:23 06/05/17 12:23 06/05/17 13:00 - Physical Exam General Appearance: Yes: Appropriately Dressed. No: Apparent Distress HEENT: positive: Normal Voice Neck: positive: Supple Respiratory/Chest: positive: Lungs Clear, Normal Breath Sounds. negative: Respiratory Distress Cardiovascular: positive: Regular Rate, S1, S2 Gastrointestinal/Abdominal: positive: Soft. negative: Tender Extremity: positive: Normal Inspection. negative: Pedal Edema Integumentary: positive: Dry, Warm Neurologic: positive: Fully Oriented, Alert, Normal Mood/Affect Heart Score/ECG Review - History History: Highly suspicious - Electrocardiogram EKG: Normal - Age Age: 45-65 - Risk Factors Risk Factors Heart Score: Yes Hx Hypercholesterolemia, Yes Hx Hypertension, Yes Hx Obesity Based on the list above the patient has:: >/=3 risk factors or Hx atherosclerotic disease - Troponin Troponin: </= normal limit - Score Heart Score - Total: 5 - ECG Intrepretation Comment:: 06/05/17 12:15 Rate controlled afib ED Treatment Course - LABORATORY CBC & Chemistry Diagram: 06/05/17 12:25 06/05/17 12:22 - ADDITIONAL ORDERS Additional order review: Laboratory Results 06/05/17 12:22 Sodium 136 Potassium 4.3 Chloride 102 Carbon Dioxide 25 D Anion Gap 9 BUN 31 H D Creatinine 1.8 H D Creat Clearance w eGFR 40.47 Random Glucose 138 H D Calcium 9.0 Total Bilirubin 0.7 D AST 22 D ALT 19 D Alkaline Phosphatase 79 Creatine Kinase 124 Troponin I < 0.02 B-Natriuretic Peptide 368.34 H Total Protein 7.6 Albumin 3.6 06/05/17 12:25 RBC 4.51 MCV 95.3 MCHC 33.4 RDW 15.7 MPV 8.6 Neutrophils % 69.1 D Lymphocytes % 20.6 D Monocytes % 7.8 Eosinophils % 1.9 Basophils % 0.6 - RADIOLOGY Radiology Studies Ordered: Category Date Time Status CHEST X-RAY PORTABLE* [RAD] Stat Radiology 06/05/17 11:54 Completed - Medications Given in the ED: ED Medications Discontinued Medications Generic Name Dose Route Start Last Admin Trade Name Elier PRN Reason Stop Dose Admin Aspirin 325 mg 06/05/17 11:55 06/05/17 12:20 Asa - PO 06/05/17 11:56 325 mg ONCE ONE Administration Medical Decision Making - Medical Decision Making 06/05/17 11:55 46-year-old morbidly obesed male with history of CHF on Lasix, HTN, HLD, afib on eliquis, here with chest pain. Patient reports intermittent lightheadedness since last night and states after eating a butter roll ~ an hr ago, he developed diaphoresis w/ numbness and "shaking" of his entire left arm and states at some point, developed neck and L sided CP. Patient states left chest pain feels like sharp spikes, is constant, with an intensity of 10 out of 10 and worse "when I get up too quickly" per pt. [place] like he could not breathe earlier but states, that has since resolved. No slurred speech, ROWE or focal weakness. No h/o similar chest pain. States he had no obstruction on catheter in 2012. No recent stress test. No obvious risk factors for DVT/PE See exam R/o ACS Concerning story w/ high heart score Hypotensive to 80s/50s in ED so will hold nitro for ongoing CP -ekg -asa -gentle hydration -pressors if no improvement -labs -cards -arrange admission w/ PMD 06/05/17 12:13 06/05/17 13:17 06/05/17 13:18 06/05/17 13:50 EKG w/ controlled A. fib with negative troponin and BNP in the 300s. Chest x- ray negative for any acute pathology. Patient stable in ED with improvement in blood pressure. Given heart score of 5 and acute renal failure, will admit to inpatient telemetry at this time. Consult for Dr. Delaney mills as M.D. saw patient during last admission. 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 Will arrange admission with hospitalist as patient's PMD, not on staff here 06/05/17 14:17 Case d/w hospitalist and pt admitted 06/05/17 14:55 *DC/Admit/Observation/Transfer Diagnosis at time of Disposition: Chest pain Qualifiers: Chest pain type: unspecified Qualified Code(s): R07.9 - Chest pain, unspecified Acute renal failure Qualifiers: Acute renal failure type: unspecified Qualified Code(s): N17.9 - Acute kidney failure, unspecified - Discharge Dispostion Disposition: HOME Condition at time of disposition: Fair Admit: Yes Decision to Admit order Date/Time: Decision to Admit Order Category Date Time Status Decision to Admit to Hospital Routine Admission 06/05/17 14:16 Active
[2017-06-05] MEDS ORDERED: SODIUM CHLORIDE 500 ML IV STA (12:07)
[2017-06-05] MEDS ORDERED: ASPIRIN 81 MG CHEWABLE TABLETS ONE (12:12)
[2017-06-05 12:51] LABS: BASOPHIL 0.6 % (0-2.0); EOSINOPHIL 1.9 % (0-4.5); MCH 31.9 pg (25.7-33.7); MCHC 33.4 g/dl (32.0-35.9); MEAN CELL VOLUME 95.3 fl (80-96); MEAN PLT VOLUME 8.6 fl (7.5-11.1); NEUTROPHILS 69.1 % (42.8-82.8); PLATELET COUNT 201 K/MM3 (134-434); RDW 15.7 % (11.9-15.9); WHITE BLOOD COUNT 9.7 K/mm3 (4.0-10.0)
[2017-06-05 12:58] LABS: ALBUMIN 3.6 g/dl (3.4-5.0); ANION GAP 9 (8-16); BILIRUBIN,TOTAL 0.7 mg/dL (0.2-1.0); CO2 25 mmol/L (21-32); CREATININE 1.8 mg/dL (0.7-1.3); GLUCOSE,RANDOM 138 mg/dL (74-106); SGPT/ALT 19 U/L (12-78); TOT PROT 7.6 g/dl (6.4-8.2)
[2017-06-05 13:01] LABS: ALK PHOS 79 U/L (45-117); CPK 124 IU/L (39-308); TROPONIN I < 0.02 ng/ml (0.00-0.05)
[2017-06-05 13:05] LABS: SGOT/AST 22 U/L (15-37)
--- NOTE | 2017-06-05 14:54 | EKG ---
Test Reason : Blood Pressure : / mmHG Vent. Rate : 082 BPM Atrial Rate : 500 BPM P-R Int : 000 ms QRS Dur : 092 ms QT Int : 372 ms P-R-T Axes : 000 047 066 degrees QTc Int : 434 ms ATRIAL FIBRILLATION NONSPECIFIC T WAVE ABNORMALITY ABNORMAL ECG WHEN COMPARED WITH ECG OF 18-DEC-2016 09:58, ATRIAL FIBRILLATION HAS REPLACED ATRIAL FLUTTER ST NO LONGER DEPRESSED IN INFERIOR LEADS NON-SPECIFIC CHANGE IN ST SEGMENT IN LATERAL LEADS T WAVE INVERSION NO LONGER EVIDENT IN INFERIOR LEADS Confirmed by ORA MURPHY, OLI ([id number]) on 06/05/2017 2:54:32 PM Referred By: Confirmed By:OLI PAYAN MD
--- NOTE | 2017-06-05 15:49 | HP ---
CHIEF COMPLAINT: PCP: HISTORY OF PRESENT ILLNESS: Patient is a 46 year old male with a significant past medical history of HTN, HLD, afib on eliquis, here with left sided chest pain. Patient reports intermittent lightheadedness since last night and states after eating he developed diaphoresis w/ numbness and tingling of his entire left arm. Patient states left chest pain feels like sharp spikes, is constant, with an intensity of 10/10 on presentation to the ED. Now the pain has subsided to a 5/10 and is reproducible on palpation. He felt short of breath at home but now he feels better after supplemental oxygen as administered. He denies any slurred speech, headache, worsening weakness. ER course was notable for: (1) Bun/Creat 31/1.8 (2) Trop negative x 1 (3) Recent Travel: PAST MEDICAL HISTORY: HTN HLD gout obesity PAST SURGICAL HISTORY: cholecystectomy Left knee arthroscopy R knee ACL, MCL repair Left hernia repair Social History: Smoking: pt denies Alcohol: quit 35 days ago, previous heavy drinker Drugs: quit 35 days ago Family History: Allergies No Known Allergies Allergy (Verified 12/18/16 02:34) HOME MEDICATIONS: Home Medications Medication Instructions Recorded Colesevelam HCl [Welchol] 625 mg PO DAILY 10/05/12 Colchicine 0.6 mg PO DAILY 11/05/14 Aspirin [ASA -] 81 mg PO DAILY 01/19/16 Allopurinol [Zyloprim -] 300 mg PO DAILY 07/19/16 Potassium Chloride [Klor-Con 10] 10 meq PO DAILY 07/19/16 Albuterol Sulfate Inhaler - 1 - 2 inh PO Q4H 12/18/16 [Ventolin HFA Inhaler -] Amlodipine Besylate [Norvasc -] 5 mg PO DAILY #30 tablet 12/21/16 Apixaban [Eliquis -] 5 mg PO BID #60 tablet 12/21/16 Carvedilol [Coreg -] 12.5 mg PO BID #60 tablet 12/21/16 Cephalexin Monohydrate [Keflex -] 500 mg PO TID #21 capsule 12/21/16 Furosemide [Lasix -] 40 mg PO DAILY #40 tablet 12/21/16 Losartan Potassium [Cozaar] 100 mg PO DAILY #30 tablet 12/21/16 Spironolactone [Aldactone] 50 mg PO DAILY #30 tablet 12/21/16 REVIEW OF SYSTEMS CONSTITUTIONAL: Absent: fever, chills, diaphoresis, generalized weakness, malaise, loss of appetite, weight change HEENT: Absent: rhinorrhea, nasal congestion, throat pain, throat swelling, difficulty swallowing, mouth swelling, ear pain, eye pain, visual changes CARDIOVASCULAR: Absent: syncope, palpitations, irregular heart rate, lightheadedness, peripheral edema RESPIRATORY: Absent: cough, shortness of breath, dyspnea with exertion, orthopnea, wheezing, stridor, hemoptysis GASTROINTESTINAL: Absent: abdominal pain, abdominal distension, nausea, vomiting, diarrhea, constipation, melena, hematochezia GENITOURINARY: Absent: dysuria, frequency, urgency, hesitancy, hematuria, flank pain, genital pain MUSCULOSKELETAL: Absent: myalgia, arthralgia, joint swelling, back pain, neck pain SKIN: Absent: rash, itching, pallor HEMATOLOGIC/IMMUNOLOGIC: Absent: easy bleeding, easy bruising, lymphadenopathy, frequent infections ENDOCRINE: Absent: unexplained weight gain, unexplained weight loss, heat intolerance, cold intolerance NEUROLOGIC: Absent: headache, focal weakness or paresthesias, dizziness, unsteady gait, seizure, mental status changes, bladder or bowel incontinence PSYCHIATRIC: Absent: anxiety, depression, suicidal or homicidal ideation, hallucinations. PHYSICAL EXAMINATION Vital Signs - 24 hr 06/05/17 15:11 Pulse Rate [ 84 Apical] Respiratory 20 Rate Blood Pressure 94/74 [Right Arm] O2 Sat by Pulse 100 Oximetry (%) GENERAL: Awake, alert, and fully oriented, in no acute distress. HEAD: Normal with no signs of trauma. EYES: Pupils equal, round and reactive to light, extraocular movements intact, sclera anicteric, conjunctiva clear. No lid lag. EARS, NOSE, THROAT: Ears normal, nares patent, oropharynx clear without exudates. Moist mucous membranes. NECK: Normal range of motion, supple without lymphadenopathy, JVD, or masses. LUNGS: Breath sounds diminished but equal, No accessory muscle use. HEART: RRR on playground monitor ABDOMEN: Soft, nontender,obese abdomen MUSCULOSKELETAL: Normal range of motion at all joints. No bony deformities or tenderness. No CVA tenderness. UPPER EXTREMITIES: No peripheral edema. LOWER EXTREMITIES: No peripheral edema. NEUROLOGICAL: Normal speech. Normal gait. PSYCHIATRIC: Cooperative. Good eye contact. Appropriate mood and affect. SKIN: Warm, dry, normal turgor, no rashes or lesions noted, normal capillary refill. ASSESSMENT/PLAN: Patient is a 46 year old male with a significant past medical history of obesity , hypertension, HLD, left knee arthrosocopy, bilateral lower ext. cellulitis and gout. Patient reports intermittent lightheadedness since last night and states after eating he developed diaphoresis w/ numbness and tingling of his entire left arm. Patient states left chest pain feels like sharp spikes, is constant, with an intensity of 10/10 on presentation to the ED. Now the pain has subsided to a 5/10 and is reproducible on palpation. He felt short of breath at home but now he feels better after supplemental oxygen as administered. He denies any slurred speech, headache, worsening weakness. Cardiology: Atrial fibrillation - recent diagnosed, on Eliquis Assessment/Plan: Normally on Metoprolol, but on hold secondary to hypotension Trend troponins Hypertension history but presented with Hypotension Assessment/Plan: Hold cardiac medicatins for low BP Home meds on Hold: coreq 12.5 BID, On Losartan 100mg daily, Norvasc 5mg Monitor BP Hyperlipidemia Assessment/Plan: Lipid panel for a.m. Endocrine: Hyperglycemia: Monitor hmga1c, 6.1 on last visit Renal: Acute Kidney Injury A/P: Hold Lasix, on IVF Monitor BMP F.E.N. Fluids: Tolerating PO Electrolytes: Monitor with BMP Nutrition: low sodium Prophylaxis: DVT: Eliquis 5mg PO BID GI: Protonix daily Disposition: Full code.
[2017-06-05 16:11] VITALS: BMI 47.5
--- NOTE | 2017-06-05 16:33 | CON.CARD ---
Consult Consult Specialty:: Cardiology Referred by:: Hospitalist Reason for Consultation:: Chest tightness - History of Present Illness Chief Complaint: Chest tightness History of Present Illness: 46-year-old morbidly obese male with history of diastolic dysfunction, HTN, HLD , afib on eliquis, presented here with chest pain. After eating a butter roll ~ an hr ago, he developed diaphoresis w/ numbness and "shaking" of his entire left arm and states at some point, developed posterior head and neck discomfort and non-exertional sharp, reproducible left sided chest pain. Patient states left chest pain feels like sharp spikes, is constant, with an intensity of 10 out of 10 and worse "when I get up too quickly" per pt and turning torso to left. Reported mild dyspnea since resolved. He denies palpitations, near or true syncope, orthopnea, PND or LE edema. States he had no obstruction on catheter in 2012. - History Source History Provided By: Patient Limitations to Obtaining History: No Limitations - Past Medical History Cardio/Vascular: Yes: AFIB, HTN - Alcohol/Substance Use Hx Alcohol Use: No - Smoking History Smoking history: Never smoked Have you smoked in the past 12 months: No Aproximately how many cigarettes per day: 0 Home Medications - Allergies Allergies/Adverse Reactions: Allergies Allergy/AdvReac Type Severity Reaction Status Date / Time No Known Allergies Allergy Verified 12/18/16 02:34 - Home Medications Home Medications: Ambulatory Orders Colchicine 0.6 mg PO DAILY PRN 11/05/14 Aspirin [ASA -] 81 mg PO DAILY 01/19/16 Allopurinol [Zyloprim -] 300 mg PO DAILY 07/19/16 Potassium Chloride [Klor-Con 10] 10 meq PO DAILY PRN 07/19/16 Amlodipine Besylate [Norvasc -] 5 mg PO DAILY #30 tablet 12/21/16 Apixaban [Eliquis -] 5 mg PO BID #60 tablet 12/21/16 Carvedilol [Coreg -] 12.5 mg PO BID #60 tablet 12/21/16 Furosemide [Lasix -] 40 mg PO DAILY #40 tablet 12/21/16 Losartan Potassium [Cozaar] 100 mg PO DAILY #30 tablet 12/21/16 Spironolactone [Aldactone] 50 mg PO DAILY #30 tablet 12/21/16 Ergocalciferol (Vitamin D2) [Vitamin D2] 50,000 unit PO TU 06/05/17 Review of Systems - Review of Systems Cardiovascular: reports: Chest Pain Vital Signs: Vital Signs Temperature 98.1 F 06/05/17 16:04 Pulse Rate 98 H 06/05/17 16:04 Respiratory Rate 20 06/05/17 16:04 Blood Pressure 91/68 06/05/17 16:04 O2 Sat by Pulse Oximetry (%) 99 06/05/17 16:03 Constitutional: Yes: No Distress Neck: Yes: Supple Respiratory: Yes: Regular, CTA Bilaterally Gastrointestinal: Yes: Normal Bowel Sounds, Soft, Abdomen, Obese Cardiovascular: Yes: Regular Rate and Rhythm JVD: No Carotid Bruit: No Heart Sounds: Yes: S1, S2 Edema: No - Other Data Afib @ 82 Imaging - Results Chest X-ray: Image Reviewed Problem List - Problems (1) Chest pain Code(s): R07.9 - CHEST PAIN, UNSPECIFIED Qualifiers: Chest pain type: unspecified Qualified Code(s): R07.9 - Chest pain, unspecified (2) Afib Code(s): I48.91 - UNSPECIFIED ATRIAL FIBRILLATION Qualifiers: Atrial fibrillation type: persistent Qualified Code(s): I48.1 - Persistent atrial fibrillation (3) Hypertensive cardiomyopathy Code(s): I11.9 - HYPERTENSIVE HEART DISEASE WITHOUT HEART FAILURE I42.9 - CARDIOMYOPATHY, UNSPECIFIED Qualifiers: Heart failure presence: with heart failure Qualified Code(s): I11.0 - Hypertensive heart disease with heart failure; I43 - Cardiomyopathy in diseases classified elsewhere (4) Obesity Code(s): E66.9 - OBESITY, UNSPECIFIED Qualifiers: Obesity type: due to excess calories (5) Obstructive sleep apnea Code(s): G47.33 - OBSTRUCTIVE SLEEP APNEA (ADULT) (PEDIATRIC) (6) Substance abuse Code(s): F19.10 - OTHER PSYCHOACTIVE SUBSTANCE ABUSE, UNCOMPLICATED (7) Acute renal failure Code(s): N17.9 - ACUTE KIDNEY FAILURE, UNSPECIFIED Qualifiers: Acute renal failure type: unspecified Qualified Code(s): N17.9 - Acute kidney failure, unspecified Assessment/Plan 12/18 Echo: Mild-mod NATASHA, mild dilated LV with mild decrease LV fxn, mild cLVH, mod MR, TR, RVSP 39 mmHg 1. Chest pain syndrome with atypical features 2. Diastolic dysfunction 2. Persistent atrial fibrillation [id number] score 2 on NOAC 3. H/o HTN 4. Hypercholesterolemia 5. Hyperglycemia 6. Likely obstructive sleep apnea with pulmonary HTN 7. Morbid obesity 8. H/o polysubstance abuse- etoh and cocaine (none since December) 9. Gout 10. KIAH PLAN: 1. Ruling out for [place], hydrate with monitor renal recovery 2. Resume carvedilol once hemodoynamics stabilize (with caution given h/o cocaine abuse) 3. Resume Cozaar 100 qd once renal fxn stable, welchol 635 qd 4. Continue Eliquis 5 bid 5. Recommend sleep studies as outpatient 6. Continued abstinence from toxic habits, patient agrees 7. Encourage ambulation
[2017-06-05 18:48] LABS: URINE APPEARANCE SLCLOUDY; URINE BILIRUBIN NEGATIVE (NEGATIVE); URINE BLOOD NEGATIVE (NEGATIVE); URINE COLOR YELLOW; URINE GLUCOSE (UA) NEGATIVE (NEGATIVE); URINE KETONE NEGATIVE (NEGATIVE); URINE LEUK ESTERASE NEGATIVE (NEGATIVE); URINE NITRITE NEGATIVE (NEGATIVE); URINE PROTEIN NEGATIVE (NEGATIVE); URINE UROBILINOGEN NEGATIVE mg/dL (0.2-1.0)
[2017-06-05] MEDS ORDERED: SODIUM CHLORIDE 1,000 ML IV SCH (19:00)
[2017-06-05] MEDS: APIXABAN 5 MG TABLET PO SCH (21:32)
[2017-06-06 07:12] LABS: BASOPHIL 0.6 % (0-2.0); EOSINOPHIL 2.3 % (0-4.5); MCH 31.6 pg (25.7-33.7); MCHC 33.5 g/dl (32.0-35.9); MEAN CELL VOLUME 94.4 fl (80-96); MEAN PLT VOLUME 8.3 fl (7.5-11.1); NEUTROPHILS 52.3 % (42.8-82.8); PLATELET COUNT 184 K/MM3 (134-434); RDW 15.8 % (11.9-15.9); WHITE BLOOD COUNT 9.6 K/mm3 (4.0-10.0)
[2017-06-06 07:54] LABS: ALBUMIN 3.3 g/dl (3.4-5.0); ALK PHOS 98 U/L (45-117); ANION GAP 9 (8-16); BILIRUBIN,TOTAL 0.3 mg/dL (0.2-1.0); CALCIUM 8.2 mg/dL (8.5-10.1); CHOLESTEROL 158 mg/dL (50-200); CO2 25 mmol/L (21-32); CREATININE 1.5 mg/dL (0.7-1.3); GLUCOSE,RANDOM 107 mg/dL (74-106); MAGNESIUM 2.2 mg/dL (1.8-2.4); PHOSPHOROUS 3.9 mg/dL (2.5-4.9); SGOT/AST 15 U/L (15-37); SGPT/ALT 19 U/L (12-78); TOT PROT 6.6 g/dl (6.4-8.2); TROPONIN I < 0.02 ng/ml (0.00-0.05)
[2017-06-06] MEDS ORDERED: SODIUM CHLORIDE 1,000 ML IV SCH (08:10)
[2017-06-06 09:20] LABS: THYROID STIMULATING HORMONE 2.53 uIU/ml (0.358-3.74)
--- NOTE | 2017-06-06 09:31 | PN ---
Progress Note, Physician History of Present Illness: Left atypical chest discomfort improving, BP stabilizing. - Current Medication List Current Medications: Active Medications Allopurinol (Zyloprim -) 300 mg PO DAILY [facility] Apixaban (Eliquis -) 5 mg PO BID [facility] Last Admin: 06/05/17 21:32 Dose: 5 mg Aspirin (Asa -) 81 mg PO DAILY [facility] Colchicine (Colcrys -) 0.6 mg PO DAILY [facility] Ergocalciferol (Drisdol -) 50,000 unit PO Tu@1000 [facility] Sodium Chloride (Normal Saline -) 1,000 mls @ 100 mls/hr IV ASDIR [facility] Stop: 06/06/17 19:00 Non-Formulary Medication (Colesevelam Hcl [Welchol]) 625 mg PO DAILY [facility] - Objective Vital Signs: Vital Signs Temperature 98 F 06/06/17 05:50 Pulse Rate 90 06/06/17 05:50 Respiratory Rate 20 06/06/17 05:50 Blood Pressure 130/68 06/06/17 05:50 O2 Sat by Pulse Oximetry (%) 97 06/05/17 21:36 Constitutional: Yes: No Distress, Calm Neck: Yes: Supple Cardiovascular: Yes: Pulse Irregular Respiratory: Yes: Regular, Diminished, On Nasal O2 Gastrointestinal: Yes: Normal Bowel Sounds, Soft, Abdomen, Obese Edema: No Labs: CBC, BMP 06/06/17 05:35 06/06/17 05:35 - ....Imaging EKG: Report Reviewed (Tele: Rate-controlled afib) Problem List - Problems (1) Chest pain Code(s): R07.9 - CHEST PAIN, UNSPECIFIED Qualifiers: Chest pain type: unspecified Qualified Code(s): R07.9 - Chest pain, unspecified (2) Afib Code(s): I48.91 - UNSPECIFIED ATRIAL FIBRILLATION Qualifiers: Atrial fibrillation type: persistent Qualified Code(s): I48.1 - Persistent atrial fibrillation (3) Hypertensive cardiomyopathy Code(s): I11.9 - HYPERTENSIVE HEART DISEASE WITHOUT HEART FAILURE I42.9 - CARDIOMYOPATHY, UNSPECIFIED Qualifiers: Heart failure presence: with heart failure Qualified Code(s): I11.0 - Hypertensive heart disease with heart failure; I43 - Cardiomyopathy in diseases classified elsewhere (4) Obesity Code(s): E66.9 - OBESITY, UNSPECIFIED Qualifiers: Obesity type: due to excess calories (5) Obstructive sleep apnea Code(s): G47.33 - OBSTRUCTIVE SLEEP APNEA (ADULT) (PEDIATRIC) (6) Substance abuse Code(s): F19.10 - OTHER PSYCHOACTIVE SUBSTANCE ABUSE, UNCOMPLICATED (7) Acute renal failure Code(s): N17.9 - ACUTE KIDNEY FAILURE, UNSPECIFIED Qualifiers: Acute renal failure type: unspecified Qualified Code(s): N17.9 - Acute kidney failure, unspecified Assessment/Plan 12/18 Echo: Mild-mod NATASHA, mild dilated LV with mild decrease LV fxn, mild cLVH, mod MR, TR, RVSP 39 mmHg 1. Chest pain syndrome with atypical features 2. Diastolic dysfunction 2. Persistent atrial fibrillation [id number] score 2 on NOAC 3. H/o HTN 4. Hypercholesterolemia 5. Hyperglycemia 6. Likely obstructive sleep apnea with pulmonary HTN 7. Morbid obesity 8. H/o polysubstance abuse- etoh and cocaine (none since December) 9. Gout 10. KIAH improving PLAN: 1. Ruled out for [place], hydrate with monitor renal recovery 2. Resume carvedilol 6.25 bid now that hemodynamics stabilized (with caution given h/o cocaine abuse) 3. Resume Cozaar 100 qd once renal fxn stable, welchol 635 qd 4. Continue Eliquis 5 bid 5. Recommend sleep studies as outpatient 6. Continued abstinence from toxic habits, patient agrees 7. Encourage ambulation, d/c planning with f/u in office [phone]
[2017-06-06] MEDS: APIXABAN 5 MG TABLET PO SCH (09:47)
[2017-06-06] MEDS ORDERED: COLCHICINE 0.6 MG TABLET (FP) PO SCH (10:00)
[2017-06-06] MEDS ORDERED: ALLOPURINOL 300 MG TABLET (FP) PO SCH (10:00)
[2017-06-06] MEDS ORDERED: ASPIRIN 81 MG CHEWABLE TABLETS PO SCH (10:00)
[2017-06-06] MEDS ORDERED: PATIENT'S OWN MEDICATION (NON-FORMULARY) (Colesevelam Hcl [Welchol] 625 MG) PO SCH (10:00)
--- NOTE | 2017-06-06 10:20 | DS ---
Physical Exam: SUBJECTIVE: Patient seen and examined at the bedside. OBJECTIVE: For discharge today. Patient and to follow up with Dr. Baires for an outpatient stress test. They both are in agreement to follow up. Vital Signs Period Temp Pulse Resp BP Sys/Jean Pulse Ox Last 24 Hr 98 F-98.1 F 83-98 20-20 91-130/61-74 97-100 PHYSICAL EXAM GENERAL: Awake, alert, and fully oriented, in no acute distress. HEAD: Normal with no signs of trauma. EYES: Pupils equal, round and reactive to light, extraocular movements intact, sclera anicteric, conjunctiva clear. No lid lag. EARS, NOSE, THROAT: Ears normal, nares patent, oropharynx clear without exudates. Moist mucous membranes. NECK: Normal range of motion, supple without lymphadenopathy, JVD, or masses. LUNGS: Breath sounds diminished but equal, No accessory muscle use. HEART: RRR on executive coach ABDOMEN: Soft, nontender,obese abdomen MUSCULOSKELETAL: Normal range of motion at all joints. No bony deformities or tenderness. No CVA tenderness. UPPER EXTREMITIES: No peripheral edema. LOWER EXTREMITIES: No peripheral edema. NEUROLOGICAL: Normal speech. Normal gait. PSYCHIATRIC: Cooperative. Good eye contact. Appropriate mood and affect. SKIN: Warm, dry, normal turgor, no rashes or lesions noted, normal capillary refill. LABS Laboratory Results - last 24 hr 06/05/17 06/05/17 06/06/17 17:20 18:00 00:01 WBC RBC Hgb Hct MCV MCH MCHC RDW Plt Count MPV Neutrophils % Lymphocytes % Monocytes % Eosinophils % Basophils % Sodium Potassium Chloride Carbon Dioxide Anion Gap BUN Creatinine Creat Clearance w eGFR Random Glucose Hemoglobin A1c % Calcium Phosphorus Magnesium Total Bilirubin AST ALT Alkaline Phosphatase Troponin I < 0.02 < 0.02 Total Protein Albumin Triglycerides Cholesterol Total LDL Cholesterol HDL Cholesterol TSH Urine Color Yellow Urine Appearance Slcloudy Urine pH 5.0 Ur Specific [place] 1.010 Urine Protein Negative Urine Glucose (UA) Negative Urine Ketones Negative Urine Blood Negative Urine Nitrite Negative Urine Bilirubin Negative Urine Urobilinogen Negative 06/06/17 06/06/17 06/06/17 05:35 05:35 05:35 WBC 9.6 RBC 4.00 Hgb 12.6 D Hct 37.8 MCV 94.4 MCH 31.6 MCHC 33.5 RDW 15.8 Plt Count 184 MPV 8.3 Neutrophils % 52.3 D Lymphocytes % 33.6 D Monocytes % 11.2 H Eosinophils % 2.3 Basophils % 0.6 Sodium 139 Potassium 4.1 Chloride 105 Carbon Dioxide 25 Anion Gap 9 BUN 34 H Creatinine 1.5 H Creat Clearance w eGFR 49.95 Random Glucose 107 H D Hemoglobin A1c % 5.6 D Calcium 8.2 L Phosphorus 3.9 Magnesium 2.2 Total Bilirubin 0.3 D AST 15 D ALT 19 Alkaline Phosphatase 98 D Troponin I < 0.02 Total Protein 6.6 Albumin 3.3 L Triglycerides 186 H D Cholesterol 158 Total LDL Cholesterol 97 HDL Cholesterol 36 L TSH 2.53 Urine Color Urine Appearance Urine pH Ur Specific [place] Urine Protein Urine Glucose (UA) Urine Ketones Urine Blood Urine Nitrite Urine Bilirubin Urine Urobilinogen 06/06/17 06:00 WBC RBC Hgb Hct MCV MCH MCHC RDW Plt Count MPV Neutrophils % Lymphocytes % Monocytes % Eosinophils % Basophils % Sodium Potassium Chloride Carbon Dioxide Anion Gap BUN Creatinine Creat Clearance w eGFR Random Glucose Hemoglobin A1c % Calcium Phosphorus Magnesium Total Bilirubin AST ALT Alkaline Phosphatase Troponin I Total Protein Albumin Triglycerides Cholesterol Total LDL Cholesterol HDL Cholesterol TSH Cancelled Urine Color Urine Appearance Urine pH Ur Specific [place] Urine Protein Urine Glucose (UA) Urine Ketones Urine Blood Urine Nitrite Urine Bilirubin Urine Urobilinogen HOSPITAL COURSE: Date of Admission:06/05/17 Date of Discharge: 06/06/17 ASSESSMENT/PLAN: Patient is a 46 year old male with a significant past medical history of obesity , hypertension, HLD, left knee arthrosocopy, bilateral lower ext. cellulitis and gout. Patient reports intermittent lightheadedness since last night and states after eating he developed diaphoresis w/ numbness and tingling of his entire left arm. Patient states left chest pain feels like sharp spikes, is constant, with an intensity of 10/10 on presentation to the ED. Now the pain has subsided to a 5/10 and is reproducible on palpation. He felt short of breath at home but now he feels better after supplemental oxygen as administered. He denies any slurred speech, headache, worsening weakness. His symptoms are now resolved. Cardiology: Chest Pain - resolved A/P: Troponins negative x 3, patient to follow up for outpatient stress test EKG reviewed Cleared by cardiology for discharge Atrial fibrillation - recent diagnosed, on Eliquis Assessment/Plan: Normally on Coreq, but on hold secondary to hypotension Coreq dose reduced from coreq 12.5 BID to coreq 6.25 bid Hypertension history but presented with Hypotension - resolved Assessment/Plan: Coreq resumed but dose lowered to 6.25mg Continue to hold Losartan Norvasc 5mg, Spirilactulone, Potassium supplements, and Lasix until patient has follow up with PCP for repeat labs to monitor kidney function Monitor BP Hyperlipidemia - chronic Assessment/Plan: Lipid panel reviewed, continue home meds Endocrine: Hyperglycemia Monitor hmga1c, 6.1 on last visit, now 5.6 Renal: Acute Kidney Injury - improved A/P: Continue to hold Losartan Norvasc 5mg, Spirilactulone, Potassium supplements, and Lasix until patient has follow up with PCP for repeat labs to monitor kidney function improved after IVF hydration Patient encouraged to hydrate CMP in 1 week and can resume meds once cleared by Dr. Baires Disposition: Full code. Discharge Summary Reason For Visit: CHEST PAIN; ACUTE RENAL FAILURE Current Active Problems Acute renal failure (Acute) Chest pain (Acute) Condition: Improved - Instructions Diet, Activity, Other Instructions: Mr. Welsh Please follow up with Dr. Baires in one week to have your blood work repeated as well as further instruction on when to re start your medications. Please continue to hydrate yourself daily with at least 6 - 8 cups of water New medications: Carvedilol 6.25 mg twice per day, this is a change from what you were taking at home. Hold the following medications: Norvasc 5mg , Lasix 40mg, Losartan, Spironolactone Continue taking all other medications as prescribed. Medications on HOLD until you see Dr. Baires and have your lab work repeated: Hold Cozaar, Hold Lasix and Spironlactone Resume these medications once cleared by Dr. Baires. Dr. Baires office phone no. [phone]. If you are unable to have your blood draw drawn with Dr. Baires or with your new PCP. You have been referred to three primary care physicians. Please call them and set up an appointment for continued care. [facility] @ [facility], [place] [phone] Referrals: Arsalan June MD [Staff Physician] - Kim Hannah MD [Staff Physician] - Caio Oneal MD [Staff Physician] - German Baires MD [Staff Physician] - Disposition: HOME - Home Medications Comprehensive Discharge Medication List: Ambulatory Orders Colchicine 0.6 mg PO DAILY PRN 11/05/14 Aspirin [ASA -] 81 mg PO DAILY 01/19/16 Allopurinol [Zyloprim -] 300 mg PO DAILY 07/19/16 Potassium Chloride [Klor-Con 10] 10 meq PO DAILY PRN 07/19/16 Amlodipine Besylate [Norvasc -] 5 mg PO DAILY #30 tablet 12/21/16 Apixaban [Eliquis -] 5 mg PO BID #60 tablet 12/21/16 Carvedilol [Coreg -] 12.5 mg PO BID #60 tablet 12/21/16 Furosemide [Lasix -] 40 mg PO DAILY #40 tablet 12/21/16 Losartan Potassium [Cozaar] 100 mg PO DAILY #30 tablet 12/21/16 Spironolactone [Aldactone] 50 mg PO DAILY #30 tablet 12/21/16 Ergocalciferol (Vitamin D2) [Vitamin D2] 50,000 unit PO TU 06/05/17
[2017-06-06] MEDS ORDERED: CARVEDILOL 6.25 MG TABLET (FP) PO SCH (10:30)
[2017-06-06 15:00] VITALS: BP 99/61; PULSE 87; TEMP 98.7
[2017-06-11] MEDS ORDERED: ERGOCALCIFEROL (VITAMIN D2) 50,000 UNIT CAPSULE (FP) PO SCH (10:00)
== END 2017-06-06 15:32 | disposition home or self-care (01) ==
LOC: JER 11:41 → JERBED 14:16 → INTOOBSV 14:16 → J4W 16:29
PROVIDERS: ADMIT Internal Medicine; ATTEND Nurse Practitioner Family
PROC: 3E0337Z Introduction of Electrolytic and Water Balance Substance into Peripheral Vein, Percutaneous Approach (ICD-10-PCS; principal; 2017-06-05)
DX: R07.9 Chest pain, unspecified (principal); N17.9 Acute kidney failure, unspecified; I48.1 Persistent atrial fibrillation; E78.5 Hyperlipidemia, unspecified; M10.9 Gout, unspecified; R73.9 Hyperglycemia, unspecified; G47.33 Obstructive sleep apnea (adult) (pediatric); F19.10 Other psychoactive substance abuse, uncomplicated; Z79.01 Long term (current) use of anticoagulants; Z79.82 Long term (current) use of aspirin; I11.0 Hypertensive heart disease with heart failure; I43 Cardiomyopathy in diseases classified elsewhere
CPT/HCPCS: 36415; 71010-TC; 80053; 80061; 81003; 83036; 83721; 83735; 83880; 84100; 84443; 84484; 85025; 93005; 93010; 99284-25; G0378

== ENCOUNTER 2017-07-25 09:09 | Day surgery (SDC) | payer OTHER ==
[2017-07-25 10:07] VITALS: BMI 48.8
[2017-07-25 10:46] VITALS: TEMP 98.1
[2017-07-25 13:35] VITALS: BP 118/74; PULSE 96
== END 2017-07-25 11:25 | disposition home or self-care (01) ==
LOC: JASU-SURG 09:09 → JASU-ENDO 09:09
PROVIDERS: ATTEND Internal Medicine Cardiovascular Disease
PROC: 5A2204Z Restoration of Cardiac Rhythm, Single (ICD-10-PCS; principal; 2017-07-25 10:00)
DX: I48.91 Unspecified atrial fibrillation (principal)
CPT/HCPCS: 92960

== ENCOUNTER 2019-10-20 14:09 | Inpatient (IN) | payer OTHER ==
--- NOTE | 2019-10-20 14:30 | PDOC ---
History of Present Illness - General Chief Complaint: Shortness of Breath Stated Complaint: SOB - History of Present Illness Initial Comments: The pt is a 49M w/ a history of diastolic/systolic, HTN, HLD, a-fib (eliquis), gout, distant cocaine abuse hx, morbid obesity who presents from Dr. Baires's office for evaluation of 3 weeks of persistent cough that has been intermittently productive with clear/yellow sputum. He endorses chest pain only with cough. He endorses associated BAPTISTE over the last three weeks that has been stable. He has tried taking cough syrup with some relief. Endorses posttussive emesis He denies fevers/chills, current chest pain, no trouble breathing at rest, abdominal pain, dysuria, hematuria, leg swelling, or changes in sensation. 10/20/19 15:08 Past History - Past Medical History Allergies/Adverse Reactions: Allergies Allergy/AdvReac Type Severity Reaction Status Date / Time No Known Allergies Allergy Verified 12/18/16 02:34 Home Medications: Ambulatory Orders Allopurinol [Zyloprim -] 300 mg PO DAILY 07/19/16 Apixaban [Eliquis -] 5 mg PO BID #60 tablet 12/21/16 Ergocalciferol (Vitamin D2) [Vitamin D2] 50,000 unit PO TU 06/05/17 Losartan Potassium 100 mg PO DAILY #30 tablet 06/06/17 Carvedilol [Coreg -] 12.5 mg PO BID 10/20/19 Anemia: No Asthma: No Cancer: No Cardiac Disorders: No CVA: No COPD: No CHF: No Dementia: No Diabetes: No GI Disorders: No Disorders: No HTN: Yes Hypercholesterolemia: Yes Liver Disease: No Seizures: No Thyroid Disease: No - Surgical History Abdominal Surgery: No Appendectomy: No Cardiac Surgery: No Cholecystectomy: Yes GI Surgery: Yes (Hernia) Lung Surgery: No Neurologic Surgery: No Orthopedic Surgery: Yes (RT KNEE ACL &MCL, LEFT KNEE ARTHROSCOPY) - Immunization History Td Vaccination: Yes Immunization Up to Date: Yes - Psycho Social/Smoking Cessation Hx Smoking Status: No Smoking History: Unknown if ever smoked Years of Tobacco Use: 0 Have you smoked in the past 12 months: No Number of Cigarettes Smoked Daily: 0 Cigars Per Day: 0 Information on smoking cessation initiated: No Hx Alcohol Use: No Drug/Substance Use Hx: No Substance Use Type: None Hx Substance Use Treatment: No Review of Systems - Review of Systems Able to Perform ROS?: Yes Comments:: GENERAL/CONSTITUTIONAL: No fever or chills. No weakness HEAD, EYES, EARS, NOSE AND THROAT: No change in vision. No change in hearing. + sore throat CARDIOVASCULAR: +BAPTISTE RESPIRATORY: + cough GASTROINTESTINAL: No nausea, vomiting, diarrhea or constipation GENITOURINARY: No dysuria, frequency, or change in urination MUSCULOSKELETAL: No joint or muscle swelling or pain SKIN: No rash NEUROLOGIC: No headache, vertigo, loss of consciousness, or change in strength/ sensation ENDOCRINE: No increased thirst. No abnormal weight change HEMATOLOGIC/LYMPHATIC: +eliquis ALLERGIC/IMMUNOLOGIC: No hives or skin allergy 10/20/19 14:30 Is the patient limited Ethiopian proficient: No *Physical Exam - Vital Signs Last Vital Signs Temp Pulse Resp BP Pulse Ox 98.1 F 81 16 124/90 98 10/20/19 14:23 10/20/19 14:23 10/20/19 14:23 10/20/19 14:23 10/20/19 14:23 - Physical Exam GENERAL: Awake, alert, and oriented to person/place/time, in no acute distress HEAD: No signs of trauma, normocephalic, atraumatic EYES: PERRLA, EOMI, sclera anicteric, conjunctiva clear ENT: Hearing grossly normal, nares patent, oropharynx clear without exudates. Moist mucosa LUNGS: No distress, speaks in full sentences, diminished breath sounds throughout (possibly 2/2 habitus) HEART: Regular rate with irregularly irregular rhythm, normal S1 and S2, no murmurs appreciated, peripheral pulses normal and equal bilaterally ABDOMEN: Soft, protuberant, NTTP, normoactive bowel sounds. No guarding, no rebound EXTREMITIES: Normal inspection, Normal range of motion, no edema. No clubbing or cyanosis NEUROLOGICAL: Cranial nerves II through XII grossly intact. Normal speech, no focal sensorimotor deficits SKIN: Warm, Dry 10/20/19 14:30 ED Treatment Course - LABORATORY CBC & Chemistry Diagram: 10/20/19 15:20 10/20/19 15:20 Medical Decision Making - Medical Decision Making The pt is a 49M w/ a history of diastolic/systolic, HTN, HLD, a-fib (eliquis), gout, distant cocaine abuse hx, morbid obesity who presents from Dr. Baires's office for evaluation of 3 weeks of cough and was found to be hypoxic in ED Consider HF, ACS, PNA, bronchitis, pulm effusion, medication SE ED Course CMP, CBC, Trop I, BNP ECG CXR Duo-neb, solumedrol, and robitussin for symptomatic relief ECG w/ a-fib; HR 81; no axis deviation; poor baseline; no ARNAUD; abn ecg 10/20/19 15:21 Initial trop equivocal Pt hypoxic in ED on RA to 88-90% s/p nebs Pt also noted to be relatively hypotensive (90s/60s(, pt reports baseline SBP 140s. Denies dizziness/CP at this time CXR w/o focal findings BNP slightly elevated No leukocytosis No anemia Lytes unremarkable LFTs unremarkable Plan for admission for persistent hypoxia Pt not on home O2 Pt signed out to [facility] Admitting Discharge - Discharge Information Problems reviewed: Yes Clinical Impression/Diagnosis: Cough, Hypoxia Hypotension Qualifiers: Hypotension type: unspecified hypotension type Qualified Code(s): I95.9 - Hypotension, unspecified Condition: Good - Admission Yes - Follow up/Referral - Patient Discharge Instructions - Post Discharge Activity
[2019-10-20] MEDS: ALBUTEROL SO4 2.5/IPRATROPIUM 0.5 INH SOL 3 ML VIAL.NEB. NEB SCH ×4 (15:05→15:51)
[2019-10-20] MEDS ORDERED: methylPREDNISolone NA SUCC 125 MG/2 ML VIAL IVPB ONE (15:14)
[2019-10-20] MEDS ORDERED: guaiFENesin/D-METHORPHAN HB 10 ML UNIT-DOSE CUPS PO ONE (15:15)
[2019-10-20] MEDS ORDERED: guaiFENesin 200 MG/10 ML 10 ML UNIT-DOSE CUPS ONE (15:23)
[2019-10-20] MEDS ORDERED: methylPREDNISolone NA SUCC 125 MG/2 ML VIAL ONE (15:24)
[2019-10-20] MEDS ORDERED: ALBUTEROL SO4 2.5/IPRATROPIUM 0.5 INH SOL 3 ML VIAL.NEB. NEB ONE (15:24)
[2019-10-20 15:36] LABS: BASO % 2.5 % (0-2.0); EOS % 1.3 % (0-4.5); HEMATOCRIT 41.9 % (35.4-49); HEMOGLOBIN 14.3 GM/dL (11.7-16.9); LYMPH % 18.5 % (8-40); MCH 32.3 pg (25.7-33.7); MCHC 34.2 g/dl (32.0-35.9); MEAN CELL VOLUME 94.5 fl (80-96); MEAN PLT VOLUME 8.3 fl (7.5-11.1); MONO % 5.3 % (3.8-10.2); NEUT % 72.4 % (42.8-82.8); PLATELET COUNT 283 K/MM3 (134-434); RBC 4.44 M/mm3 (4.00-5.60); RDW 14.8 % (11.9-15.9); WHITE BLOOD COUNT 10.2 K/mm3 (4.0-10.0)
[2019-10-20 16:11] LABS: ALBUMIN 3.6 g/dl (3.4-5.0); ALK PHOS 81 U/L (45-117); ANION GAP 8 MMOL/L (8-16); BILIRUBIN,TOTAL 0.6 mg/dL (0.2-1); BLOOD UREA NITROGEN 25.9 mg/dL (7-18); CHLORIDE 100 mmol/L (98-107); CO2 27 mmol/L (21-32); CREATININE 1.6 mg/dL (0.55-1.3); GLUCOSE,RANDOM 132 mg/dL (74-106); POTASSIUM 3.8 mmol/L (3.5-5.1); SGOT/AST 21 U/L (15-37); SGPT/ALT 23 U/L (13-61); SODIUM 135 mmol/L (136-145); TOT PROT 7.8 g/dl (6.4-8.2)
[2019-10-20] MEDS ORDERED: SODIUM CHLORIDE 0.9% 500 ML INFUS.BAG IV ONE (16:55)
--- NOTE | 2019-10-20 17:21 | PDOC ---
Documentation entered by Hemalatha Bradley SCRIBE, acting as scribe for Javan Oseguera MD. Javan Oseguera MD: This documentation has been prepared by the Mirna rivera Torie, SCRIBE, under my direction and personally reviewed by me in its entirety. I confirm that the documentation accurately reflects all work, treatment, procedures, and medical decision making performed by me. Attending Attestation - Resident Resident Name: Itz Currie - ED Attending Attestation I have performed the following: I have examined & evaluated the patient, The case was reviewed & discussed with the resident, I agree w/resident's findings & plan, Exceptions are as noted - HPI HPI: 10/20/19 15:28 Patient is a 49 year old male with a significant medical history HTN, CHF, permanent Afib, HLD, and gout who presents to the ED with a cough and dyspnea on exertion. Patient reports having upper respiratory infection like symptoms such as dyspnea on exertion, cough, and chest pain while coughing that started 3 weeks ago. Patient also reports sharp pain on the left side of his neck. 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 Patient denies: Nausea, vomiting, diarrhea, lightheadedness, travel. PCP: Arsalan Henderson Unix Developer: German Baires - Physicial Exam PE: 10/20/19 15:35 Exam: Vitals: Triage Vital signs reviewed General Appearance: no acute distress, well nourished well developed, Head: Atraumatic, normocephalic Neck: Supple;No Nuchal rigidity Chest Wall: Nontender Cardiac: Regular rate and rhythm, no murmurs, no rubs, no gallops, Lungs: Clear to auscultation bilateral, good air movement bilaterally, Abdomen: Soft, nondistended, normal bowel sounds, nontender to palpation Extremities: Full range of motion to all extremities, no cyanosis, clubbing, or edema Skin: Warm and dry, no rashes or lesions, no petechiae Neuro: AOX3; Strength intact to all extremities, Sensation intact to all extremities Psych: normal mood, normal affect - Medical Decision Making 10/20/19 18:22 49 years old multiple medical problems presents with URI symptoms Noted to be hypotensive Case discussed with cardiology Will admit to medicine for telemetry monitoring and further management
[2019-10-20] MEDS ORDERED: PIPERACILLIN/TAZOB 3.375 GM 3.375 GM in DEXTROSE 5%-WATER - 50 ML IVPB SCH (19:15)
--- NOTE | 2019-10-20 20:16 | HP ---
CHIEF COMPLAINT: cough PCP:Dr. June News Assistant: Dr. 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 Patient reported cough started 3 weeks ago, productive of yellowish sputum. He also reported nasal congestion and fullness in the ear. He went to his PCP's office where he was told everything was good and to just take cough syrup for symptoms relief. No antibiotics given. His cough persisted for 3 weeks, mildly relieved by the cough medicine. Today, during his visit to his cardiology he reported to have shortness of breath, and was noted to be hypotensive. He was then sent to ED for further evaluation, where he was found to be hypoxic at the 80s. He reports chills, but denies any fever, headache, chest pain, palpitations, nausea, vomiting, abdominal pain, diarrhea, urinary symptoms. ER course was notable for: (1)WBC 10.2, BP 94/68 (2)CXR: no acute pathology (3) Recent Travel: denies PAST MEDICAL HISTORY: HTN HLD gout obesity PAST SURGICAL HISTORY: cholecystectomy Left knee arthroscopy R knee ACL, MCL repair Left hernia repair Social History: Smoking: pt denies Alcohol: previous heavy drinker, quit a few years ago, now occasional etoh use Drugs: denies, previous cocaine use Allergies No Known Allergies Allergy (Verified 12/18/16 02:34) HOME MEDICATIONS: Home Medications Medication Instructions Recorded Allopurinol [Zyloprim -] 300 mg PO DAILY 07/19/16 Apixaban [Eliquis -] 5 mg PO BID #60 tablet 12/21/16 Ergocalciferol (Vitamin D2) 50,000 unit PO TU 06/05/17 [Vitamin D2] Losartan Potassium 100 mg PO DAILY #30 tablet 06/06/17 Carvedilol [Coreg -] 12.5 mg PO BID 10/20/19 REVIEW OF SYSTEMS CONSTITUTIONAL: Absent: fever, chills, diaphoresis, generalized weakness, malaise, loss of appetite, weight change HEENT: Absent: rhinorrhea, nasal congestion, throat pain, throat swelling, difficulty swallowing, mouth swelling, ear pain, eye pain, visual changes CARDIOVASCULAR: Absent: chest pain, syncope, palpitations, irregular heart rate, lightheadedness , peripheral edema RESPIRATORY: cough, shortness of breath Absent: dyspnea with exertion, orthopnea, wheezing, stridor, hemoptysis GASTROINTESTINAL: Absent: abdominal pain, abdominal distension, nausea, vomiting, diarrhea, constipation, melena, hematochezia GENITOURINARY: Absent: dysuria, frequency, urgency, hesitancy, hematuria, flank pain, genital pain MUSCULOSKELETAL: Absent: myalgia, arthralgia, joint swelling, back pain, neck pain SKIN: Absent: rash, itching, pallor HEMATOLOGIC/IMMUNOLOGIC: Absent: easy bleeding, easy bruising, lymphadenopathy, frequent infections ENDOCRINE: Absent: unexplained weight gain, unexplained weight loss, heat intolerance, cold intolerance NEUROLOGIC: Absent: headache, focal weakness or paresthesias, dizziness, unsteady gait, seizure, mental status changes, bladder or bowel incontinence PSYCHIATRIC: Absent: anxiety, depression, suicidal or homicidal ideation, hallucinations. PHYSICAL EXAMINATION Vital Signs - 24 hr 10/20/19 10/20/19 10/20/19 14:23 14:29 16:17 Temperature 98.1 F 98.0 F Pulse Rate 81 81 Pulse Rate [ 72 Left Apical] Respiratory 16 16 Rate Blood Pressure 124/90 Blood Pressure 94/68 [Left Arm] O2 Sat by Pulse 98 98 98 Oximetry (%) GENERAL: Awake, alert, and fully oriented,on 2L NC HEAD: Normal with no signs of trauma. EYES: PERRLa, EOMI, sclera anicteric, conjunctiva clear. EARS, NOSE, THROAT: Dry mucous membranes. NECK: Normal range of motion, supple without lymphadenopathy, JVD, or masses. LUNGS: Coarse breath sounds on bilateral bases. HEART: Irregular, normal S1 and S2 without murmur, rub or gallop. ABDOMEN: Soft, nontender, not distended, normoactive bowel sounds. MUSCULOSKELETAL: Normal range of motion at all joints. LOWER EXTREMITIES: 2+ pulses, warm, well-perfused. No peripheral edema. NEUROLOGICAL: Cranial nerves II-XII intact. Normal speech. Normal gait. PSYCHIATRIC: Cooperative. Good eye contact. Appropriate mood and affect. SKIN: Warm, dry, normal turgor. Laboratory Results - last 24 hr 10/20/19 10/20/19 15:20 15:20 WBC 10.2 H RBC 4.44 Hgb 14.3 Hct 41.9 MCV 94.5 MCH 32.3 MCHC 34.2 RDW 14.8 Plt Count 283 D MPV 8.3 Absolute Neuts (auto) 7.4 Neutrophils % 72.4 D Lymphocytes % 18.5 D Monocytes % 5.3 Eosinophils % 1.3 Basophils % 2.5 H D Nucleated RBC % 0 Sodium 135 L Potassium 3.8 Chloride 100 Carbon Dioxide 27 Anion Gap 8 BUN 25.9 H Creatinine 1.6 H Est GFR (CKD-EPI)AfAm 56.97 Est GFR (CKD-EPI)NonAf 49.15 Random Glucose 132 H Calcium 9.0 Total Bilirubin 0.6 AST 21 ALT 23 Alkaline Phosphatase 81 Troponin I < 0.02 B-Natriuretic Peptide 181.0 H Total Protein 7.8 Albumin 3.6 ASSESSMENT/PLAN: Patient is a 49 year old male with past medical history of HTN, HLD, Afib ( on eliquis), gout, morbid obesity, 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 #Cough, SOB 2/2 URTI vs Acute bronchitis, ? pneumonia, r/o ACS -patient possibly septic, given hypotension and mild leukocytosis -will treat empirically for now with Zosyn -ID (Dr. Colmenares) consulted. -Flu swab, respiratory panel, blood culture -Chest CT -First trop 0.05, will repeat and trend -Cardiology (DR. Baires) consulted. #HTN -will hold off Losartan for now given hypotensive episodes -continue to monitor bp #Atrial fibrillation -currently rate controlled, on coreg -continue eliquis #Gout -Continue allopurinol #FEN -Not on any standing fluids -Electrolytes wnl, routine bmp monitoring -Sodium restricted diet #Prophylaxis -On eliquis 5mg bid #Disposition -full code -admit to tele Visit type - Emergency Visit Emergency Visit: Yes ED Registration Date: 10/20/19 Care time: The patient presented to the Emergency Department on the above date and was hospitalized for further evaluation of their emergent condition. - New Patient This patient is new to me today: Yes Date on this admission: 10/20/19 - Critical Care Critical Care patient: No ATTENDING PHYSICIAN STATEMENT I saw and evaluated the patient. I reviewed the resident's note and discussed the case with the resident. I agree with the resident's findings and plan as documented. SUBJECTIVE: OBJECTIVE: ASSESSMENT AND PLAN:
[2019-10-20] MEDS ORDERED: PIPERACILLIN/TAZOB 3.375 GM 3.375 GM/50 ML BAG IVPB ONE (20:22)
[2019-10-20] MEDS: PIPERACILLIN/TAZOB 3.375 GM 3.375 GM in DEXTROSE 5%-WATER - 50 ML IVPB SCH (20:52)
[2019-10-20 21:00] LABS: EPI CELLS 1.4 /HPF (0-5/HPF); HYALINE CASTS 7 /lpf (0-8); URINE APPEARANCE CLOUDY; URINE BACTERIA 176.9 /hpf (NEGATIVE); URINE BILIRUBIN NEGATIVE (NEGATIVE); URINE COLOR YELLOW; URINE GLUCOSE (UA) NEGATIVE (NEGATIVE); URINE KETONE TRACE (NEGATIVE); URINE LEUK ESTERASE NEGATIVE (NEGATIVE); URINE NITRITE NEGATIVE (NEGATIVE); URINE PROTEIN 1+ (NEGATIVE); URINE RBC 2 /hpf (0-4); URINE WBC 2 /hpf (0-5)
[2019-10-20] MEDS ORDERED: APIXABAN 5 MG TABLET ONE (23:32)
--- NOTE | 2019-10-20 23:32 | PN ---
Teaching Attending Note Name of Resident: Deann Alex ATTENDING PHYSICIAN STATEMENT I saw and evaluated the patient. I reviewed the resident's note and discussed the case with the resident. I agree with the resident's findings and plan as documented. 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 Patient endorses he believes he had a URI but never received abx, only got cough suppressants, now feels chest pressure and SOB, was also found to be hypoxic in ED requiring O2. PE GA AAOx3, speaking in full sentences, NAD, morbidly obese HEENT NC/AT, EOMI, MMM, neck supple, no JVD, wide neck circumference Chest decreased BS b/l, likely 2/2 body habitus, no increased WOB CVS S1, S2+, RRR, no m/r/g Abd Soft, obese, NT, no guarding Ext No LE edema, no calf tenderness Vital Signs - 24 hr 10/20/19 10/20/19 10/20/19 14:23 14:29 16:17 Temperature 98.1 F 98.0 F Pulse Rate 81 81 Pulse Rate [ 72 Left Apical] Respiratory 16 16 Rate Blood Pressure 124/90 Blood Pressure 94/68 [Left Arm] Blood Pressure [Right Arm] O2 Sat by Pulse 98 98 98 Oximetry (%) 10/20/19 21:19 Temperature 98.2 F Pulse Rate Pulse Rate [ 90 Left Apical] Respiratory Rate Blood Pressure Blood Pressure [Left Arm] Blood Pressure 107/73 [Right Arm] O2 Sat by Pulse 92 L Oximetry (%) Laboratory Results - last 24 hr 10/20/19 10/20/19 10/20/19 15:20 15:20 20:30 WBC 10.2 H RBC 4.44 Hgb 14.3 Hct 41.9 MCV 94.5 MCH 32.3 MCHC 34.2 RDW 14.8 Plt Count 283 D MPV 8.3 Absolute Neuts (auto) 7.4 Neutrophils % 72.4 D Lymphocytes % 18.5 D Monocytes % 5.3 Eosinophils % 1.3 Basophils % 2.5 H D Nucleated RBC % 0 Sodium 135 L Potassium 3.8 Chloride 100 Carbon Dioxide 27 Anion Gap 8 BUN 25.9 H Creatinine 1.6 H Est GFR (CKD-EPI)AfAm 56.97 Est GFR (CKD-EPI)NonAf 49.15 Random Glucose 132 H Calcium 9.0 Total Bilirubin 0.6 AST 21 ALT 23 Alkaline Phosphatase 81 Creatine Kinase 131 Troponin I < 0.02 < 0.02 B-Natriuretic Peptide 181.0 H Total Protein 7.8 Albumin 3.6 Urine Color Urine Appearance Urine pH Ur Specific [place] Urine Protein Urine Glucose (UA) Urine Ketones Urine Blood Urine Nitrite Urine Bilirubin Urine Urobilinogen Ur Leukocyte Esterase Urine WBC (Auto) Urine RBC (Auto) Urine Casts (Auto) U Epithel Cells (Auto) Urine Bacteria (Auto) Influenza A (Rapid) Influenza B (Rapid) RSV Rapid 10/20/19 10/20/19 10/20/19 20:30 20:30 20:50 WBC RBC Hgb Hct MCV MCH MCHC RDW Plt Count MPV Absolute Neuts (auto) Neutrophils % Lymphocytes % Monocytes % Eosinophils % Basophils % Nucleated RBC % Sodium Potassium Chloride Carbon Dioxide Anion Gap BUN Creatinine Est GFR (CKD-EPI)AfAm Est GFR (CKD-EPI)NonAf Random Glucose Calcium Total Bilirubin AST ALT Alkaline Phosphatase Creatine Kinase Troponin I B-Natriuretic Peptide Total Protein Albumin Urine Color Yellow Urine Appearance Cloudy Urine pH 5.0 Ur Specific [place] 1.020 Urine Protein 1+ H Urine Glucose (UA) Negative Urine Ketones Trace H Urine Blood Negative Urine Nitrite Negative Urine Bilirubin Negative Urine Urobilinogen 1.0 Ur Leukocyte Esterase Negative Urine WBC (Auto) 2 Urine RBC (Auto) 2 Urine Casts (Auto) 7 U Epithel Cells (Auto) 1.4 Urine Bacteria (Auto) 176.9 Influenza A (Rapid) Negative Influenza B (Rapid) Negative RSV Rapid Negative Home Medications Medication Instructions Recorded Allopurinol [Zyloprim -] 300 mg PO DAILY 07/19/16 Apixaban [Eliquis -] 5 mg PO BID #60 tablet 12/21/16 Ergocalciferol (Vitamin D2) 50,000 unit PO TU 06/05/17 [Vitamin D2] Losartan Potassium 100 mg PO DAILY #30 tablet 06/06/17 Carvedilol [Coreg -] 12.5 mg PO BID 10/20/19 Current Medications Generic Name Dose Route Start Last Admin Trade Name Freq PRN Reason Stop Dose Admin Apixaban 5 mg 02/11/20 22:00 Eliquis - PO BID SHAQ Piperacillin Sod/Tazobactam 50 mls @ 100 mls/hr 10/20/19 19:15 Sod 3.375 gm/ Dextrose IVPB Q8H-IV SHAQ Protocol Piperacillin Sod/Tazobactam 50 mls @ 100 mls/hr 10/20/19 19:40 10/20/19 20:52 Sod 3.375 gm/ Dextrose IVPB 10/21/19 10:29 100 mls/hr Q8H-IV SHAQ Administration Protocol 49 M h/o morbid obesity, HTN, HLD, Afib ( on eliquis), gout, 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 SOB w/ productive cough -?URI v.s. PNA, will obtain chest CT, ?MAGGY/OHS will obtain sleep screen -patient possibly septic, given hypotension and mild leukocytosis -will treat empirically for now with Zosyn until cultures return -ID (Dr. Colmenares) consulted. -Flu swab, respiratory panel, blood culture -trend trops/EKG -Cardiology consult. HTN Monitor BP, found to be intermittingly low in ED Afib Rate controlled Cont. Eliquis Gout No in acute flare -Continue allopurinol DVT ppx: Eliquis Admit to telemetry
[2019-10-20] MEDS: APIXABAN 5 MG TABLET PO SCH (23:36)
[2019-10-21] MEDS ORDERED: PIPERACILLIN/TAZOBACTAM 3.375 GM VIAL IVPB ONE ×2 (01:08→09:20)
[2019-10-21] MEDS ORDERED: DEXTROSE 5%-WATER - 50 ML IVPB ONE ×2 (01:09→09:20)
[2019-10-21] MEDS: PIPERACILLIN/TAZOB 3.375 GM 3.375 GM in DEXTROSE 5%-WATER - 50 ML IVPB SCH ×2 (02:03→09:30)
[2019-10-21 07:16] LABS: BASO % 0.1 % (0-2.0); HEMATOCRIT 41.9 % (35.4-49); HEMOGLOBIN 14.2 GM/dL (11.7-16.9); LYMPH % 12.1 % (8-40); MCH 32.2 pg (25.7-33.7); MCHC 33.8 g/dl (32.0-35.9); MEAN CELL VOLUME 95.1 fl (80-96); MEAN PLT VOLUME 8.2 fl (7.5-11.1); MONO % 2.2 % (3.8-10.2); NEUT % 85.6 % (42.8-82.8); PLATELET COUNT 279 K/MM3 (134-434); RDW 14.9 % (11.9-15.9); WHITE BLOOD COUNT 11.9 K/mm3 (4.0-10.0)
--- NOTE | 2019-10-21 07:19 | PN ---
Progress Note, Physician Chief Complaint: States breathing is better. Able to ambulate to bathroom without O2. 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 - Current Medication List Current Medications: Active Medications Apixaban (Eliquis -) 5 mg PO BID SHAQ Last Admin: 10/20/19 23:36 Dose: 5 mg Piperacillin Sod/Tazobactam (Sod 3.375 gm/ Dextrose) 50 mls @ 100 mls/hr IVPB Q8H-IV SHAQ; Protocol Piperacillin Sod/Tazobactam (Sod 3.375 gm/ Dextrose) 50 mls @ 100 mls/hr IVPB Q8H-IV SHAQ; Protocol Stop: 10/21/19 10:29 Last Admin: 10/21/19 02:03 Dose: 100 mls/hr Pneumococcal 13-Valent Conj Vacc (Prevnar 13 Syringe -) 0.5 ml IM .ONCE ONE Stop: 10/21/19 08:01 - Objective Vital Signs: Vital Signs Temperature 98.0 F 10/21/19 06:00 Pulse Rate 101 H 10/21/19 06:00 Respiratory Rate 20 10/21/19 06:00 Blood Pressure 150/75 10/21/19 06:00 O2 Sat by Pulse Oximetry (%) 97 10/21/19 01:10 Constitutional: Yes: No Distress, Calm, Obese Eyes: Yes: WNL, Conjunctiva Clear HENT: Yes: WNL, Atraumatic, Normocephalic Neck: Yes: WNL, Supple, Trachea Midline Cardiovascular: Yes: Pulse Irregular Respiratory: Yes: Regular, CTA Bilaterally, Diminished (at bases), On Nasal O2 Gastrointestinal: Yes: Normal Bowel Sounds, Soft, Abdomen, Obese ...Rectal Exam: Yes: Deferred Genitourinary: Yes: WNL Breast(s): Yes: WNL Musculoskeletal: Yes: Joint Stiffness (right knee) Extremities: Yes: WNL Edema: No Peripheral Pulses WNL: Yes Peripheral Pulses: Left Radial: 2+, Right Radial: 2+, Left Doralis Pedis: 2+, Right Dorsalis Pedis: 2+, Left Femoral: 2+, Right Femoral: 2+ Integumentary: Yes: Tattoos (to left chest) Neurological: Yes: WNL, Alert, Oriented ...Motor Strength: WNL Psychiatric: Yes: WNL - ....Imaging Cat Scan: Report Reviewed (Chest CT :suspicious nodular density left lower lobe 1.1 x 1.0 x 1.6 cm.) Problem List - Problems (1) HTN (hypertension) Assessment/Plan: normotensive now, BP low on presentation to ED c/w losartan with hold parameters Code(s): I10 - ESSENTIAL (PRIMARY) HYPERTENSION (2) HLD (hyperlipidemia) Assessment/Plan: c/w low chol diet Code(s): E78.5 - HYPERLIPIDEMIA, UNSPECIFIED (3) Morbid obesity with BMI of 50.0-59.9, adult Assessment/Plan: counseled on weight loss low fat/chol diet encourage exercise regimine on discharge Code(s): E66.01 - MORBID (SEVERE) OBESITY DUE TO EXCESS CALORIES; Z68.43 - BODY MASS INDEX (BMI) 50.0-59.9, ADULT (4) Afib Assessment/Plan: chronic AF, rate controlled c/w coreg cardiology to see-Dr Hyman Code(s): I48.91 - UNSPECIFIED ATRIAL FIBRILLATION Qualifiers: Atrial fibrillation type: persistent (5) Gout Assessment/Plan: stable c/w allopurinol Code(s): M10.9 - GOUT, UNSPECIFIED (6) Prophylactic measure Assessment/Plan: FEN Fluids: adequate PO intake Electrolytes: monitor & replete as needed Nutrition: low fat/chol diet DVT moderate risk c/w eliquis Dispo Maintain as inpatient full code discharge planning Code(s): Z29.9 - ENCOUNTER FOR PROPHYLACTIC MEASURES, UNSPECIFIED (7) Cough Assessment/Plan: resolving supplemental O2 to maintain SPO2 >88% robutussin prn Incentive spirometry duonebs prn given solmedrol 125mg in ED Zosyn given seen by ID-can change to rocephin and continue to monitor Code(s): R05 - COUGH (8) Lung nodule < 6cm on CT Assessment/Plan: CT findings demonstrating suspicious nodular density left lower lobe 1.1 x 1.0 x 1.6 cm PET scan as outpatient Pulm consultation requested Code(s): R91.1 - SOLITARY PULMONARY NODULE Visit type - Emergency Visit Emergency Visit: Yes ED Registration Date: 10/20/19 Care time: The patient presented to the Emergency Department on the above date and was hospitalized for further evaluation of their emergent condition. - New Patient This patient is new to me today: Yes Date on this admission: 10/21/19 - Critical Care Critical Care patient: No - Discharge Referral Referred to [facility] Med P.C.: No
[2019-10-21 07:49] LABS: ALBUMIN 3.6 g/dl (3.4-5.0); BILIRUBIN,TOTAL 0.7 mg/dL (0.2-1); BLOOD UREA NITROGEN 33.6 mg/dL (7-18); CREATININE 1.6 mg/dL (0.55-1.3); MAGNESIUM 2.3 mg/dL (1.8-2.4); POTASSIUM 4.4 mmol/L (3.5-5.1)
[2019-10-21] MEDS ORDERED: PNEUMOC 13-VAL CONJ-DIP CRM/PF 0.5 ML DISP.SYRIN IM ONE (08:00)
[2019-10-21] MEDS: APIXABAN 5 MG TABLET PO SCH ×2 (09:27→21:15)
[2019-10-21] MEDS ORDERED: PNEUMOCOCCAL 23 VACCINE 0.5 ML VIAL IM ONE (10:00)
[2019-10-21] MEDS ORDERED: CARVEDILOL 12.5 MG TABLET (FP) PO SCH (10:00)
[2019-10-21] MEDS: ALLOPURINOL 300 MG TABLET (FP) PO SCH (10:48)
[2019-10-21] MEDS: LOSARTAN POTASSIUM 50 MG TABLET (FP) PO SCH (10:49)
[2019-10-21] MEDS: LIDOCAINE 5% TOPICAL PATCH TP SCH (11:48)
--- NOTE | 2019-10-21 11:50 | PN ---
Progress Note (short form) - Note Progress Note: ID ant dictated 49 yo man admitted from home, no recent admissions 3 weeks of cough productive of yellow sputm was wheezing yesterday and dizzy and sob bp in ER was 94/64 no gi symptoms-no weight loss no fevers reports left ear feels full and is trying to pop- no ear pain no travel not working last hospital admission 2017- has not been hospitalized since he is tired of answering more questions and has referred me to his chart for further details chest ct - no infiltrates no signs pneumonia ?bronchitis- no need for zosyn at this time hypotension resolved afib- management per cardiology can switch to rocephin please call back if needed patient is not interested in speaking with me so I donot feel I can offer much more at this time Problem List - Problems (1) Bronchitis Code(s): J40 - BRONCHITIS, NOT SPECIFIED ACUTE OR CHRONIC (2) Hypotension Code(s): I95.9 - HYPOTENSION, UNSPECIFIED Qualifiers: Hypotension type: unspecified hypotension type Qualified Code(s): I95.9 - Hypotension, unspecified (3) Afib Code(s): I48.91 - UNSPECIFIED ATRIAL FIBRILLATION Qualifiers: Atrial fibrillation type: persistent
--- NOTE | 2019-10-21 12:43 | CON.CARD ---
Consult Consult Specialty:: Cardiology Referred by:: Hospitalist Medicine Reason for Consultation:: BAPTISTE, decreased exercise capacity - History of Present Illness Chief Complaint: BAPTISTE, decreased exercise capacity History of Present Illness: 49-year-old morbidly obese male with history of diastolic/systolic dysfunction ( LVEF 40%), HTN, HLD, afib on eliquis, CKD presented to my office with BAPTISTE, decreased exercise capacity, chest pain, productive cough last 2 weeks, wheeze, light-headed had URI symptoms previously. He denies palpitations, true syncope, orthopnea, PND or LE edema. Noted to be hypoxemic, CXR clear, received nebs, steroids abx, O2. - History Source History Provided By: Patient Limitations to Obtaining History: No Limitations - Past Medical History Cardio/Vascular: Yes: AFIB, HTN - Alcohol/Substance Use Hx Alcohol Use: Yes - Smoking History Smoking history: Never smoked Have you smoked in the past 12 months: No Aproximately how many cigarettes per day: 0 Home Medications - Allergies Allergies/Adverse Reactions: Allergies Allergy/AdvReac Type Severity Reaction Status Date / Time No Known Allergies Allergy Verified 12/18/16 02:34 - Home Medications Home Medications: Ambulatory Orders Allopurinol [Zyloprim -] 300 mg PO DAILY 07/19/16 Apixaban [Eliquis -] 5 mg PO BID #60 tablet 12/21/16 Ergocalciferol (Vitamin D2) [Vitamin D2] 50,000 unit PO TU 06/05/17 Losartan Potassium 100 mg PO DAILY #30 tablet 06/06/17 Carvedilol [Coreg -] 12.5 mg PO BID 10/20/19 Review of Systems - Review of Systems Cardiovascular: reports: Chest Pain Respiratory: reports: Cough, Exercise Intolerance, SOB, SOB on Exertion Vital Signs: Vital Signs Temperature 98.0 F 10/21/19 06:00 Pulse Rate 82 10/21/19 10:00 Respiratory Rate 20 10/21/19 10:00 Blood Pressure 139/92 10/21/19 10:00 O2 Sat by Pulse Oximetry (%) 98 10/21/19 08:12 Constitutional: Yes: No Distress, Calm Neck: Yes: Supple Respiratory: Yes: Regular, Cough, Diminished, On Nasal O2, SOB, SOB on Exertion Gastrointestinal: Yes: Normal Bowel Sounds, Soft, Abdomen, Obese Cardiovascular: Yes: Pulse Irregular JVD: No Carotid Bruit: No Heart Sounds: Yes: S1, S2 Murmur: Yes: Systolic Murmur, Grade 1 Edema: Yes Edema: LLE: Trace, RLE: Trace - Other Data Labs, Other Data: CBC, BMP 10/21/19 06:10 10/21/19 06:10 Troponin, BNP 10/20/19 10/20/19 15:20 20:30 Troponin I < 0.02 < 0.02 B-Natriuretic Peptide 181.0 H Troponin, BNP 10/20/19 10/20/19 15:20 20:30 Troponin I < 0.02 < 0.02 B-Natriuretic Peptide 181.0 H Afib @ 81 Tele: Rate-controlled afib Ejection Fraction %: LVEF > or = 40 % Imaging - Results Chest X-ray: Report Reviewed (10/20/2019 NAD) Cat Scan: Report Reviewed (10/20/[address]: LLL nodule, no lung consolidation, bronchiectasis or fibrosis) Problem List - Problems (1) Acute hypoxemic respiratory failure Code(s): J96.01 - ACUTE RESPIRATORY FAILURE WITH HYPOXIA (2) Bronchitis Code(s): J40 - BRONCHITIS, NOT SPECIFIED ACUTE OR CHRONIC (3) HLD (hyperlipidemia) Code(s): E78.5 - HYPERLIPIDEMIA, UNSPECIFIED (4) HTN (hypertension) Code(s): I10 - ESSENTIAL (PRIMARY) HYPERTENSION (5) Morbid obesity with BMI of 50.0-59.9, adult Code(s): E66.01 - MORBID (SEVERE) OBESITY DUE TO EXCESS CALORIES; Z68.43 - BODY MASS INDEX (BMI) 50.0-59.9, ADULT (6) Afib Code(s): I48.91 - UNSPECIFIED ATRIAL FIBRILLATION Qualifiers: Atrial fibrillation type: longstanding persistent Qualified Code(s): I48.11 - Longstanding persistent atrial fibrillation (7) Hypertensive cardiomyopathy Code(s): I11.9 - HYPERTENSIVE HEART DISEASE WITHOUT HEART FAILURE; I42.9 - CARDIOMYOPATHY, UNSPECIFIED Qualifiers: Heart failure presence: with heart failure Qualified Code(s): I11.0 - Hypertensive heart disease with heart failure (8) Obesity Code(s): E66.9 - OBESITY, UNSPECIFIED Qualifiers: Obesity type: due to excess calories Assessment/Plan 10/20/[address] LLL nodule, no lung consolidation, bronchiectasis or fibrosis 12/18 Echo: Mild-mod NATASHA, mild dilated LV with mild decrease LV fxn, mild cLVH, mod MR, TR, RVSP 39 mmHg 1. Acute hypoxemix respiratory failure -> Acute bronchitis triggered by URI 2. Chest pain syndrome with atypical features 3. Diastolic dysfunction 4. Persistent atrial fibrillation [id number] score 2 on NOAC 5. H/o HTN 6. Hypercholesterolemia 7. Hyperglycemia 8. Ruled out obstructive sleep apnea via PSG 7. Morbid obesity 8. H/o polysubstance abuse- etoh and cocaine (none since December) 9. Gout 10. CKD 11. LLL nodule ? infectious PLAN: 1. BD, O2 as needed to maintain saO2>90%, IV steroids with GI protectiopn and empiric abx, ruled out for [place] 2. Resume carvedilol 6.25 bid as hemodynamics tolerate 3. Resume Cozaar 100 qd as hemodynamics tolerate as renal fxn stable 4. Continue Eliquis 5 bid 5. Outpatient chest CT f/u of LLL nodule 6. Thank you for consultative opportunity
[2019-10-21] MEDS ORDERED: ALBUTEROL SO4 2.5/IPRATROPIUM 0.5 INH SOL 3 ML VIAL.NEB. NEB PRN (12:49)
--- NOTE | 2019-10-21 13:04 | CONS ---
DATE OF CONSULTATION: DATE OF DICTATION: 10/21/2019 INFECTIOUS DISEASE CONSULTATION REQUESTING PHYSICIAN: The hospitalist service. 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 he had been coughing for 3 weeks. Two weeks ago he went to see his [facility] [facility], was evaluated but not given any medications. He went to see Dr. Baires yesterday. He was wheezing and dizzy and short of breath with yellow sputum production. He was referred to the ER where the patient reports he had a blood pressure of 94/64. He was given steroids. He was given Zosyn. He was given nebulizer treatment with DuoNebs and he was given some IV fluids. His blood pressure improved and is now normal and his wheezing has diminished. He reports his left ear feels clogged and feels like it needs to pop. It was evaluated in the ER where they have an otoscope and he reports the ER doctor said there was a small amount of fluid behind his ear. He had a flu shot in July and he has had no hospitalizations since his last admission at [facility] in 2016. He has no GI symptoms whatsoever. He has not lost any weight during this illness. There is no history of any travel as well. The patient is unwilling to really discuss any further aspects of his past history and has referred me to the chart for further details. SURGICAL HISTORY: Notable for cholecystectomy, left knee arthroscopy, he has had a right knee ACL and MCL repair and a left hernia repair. SOCIAL HISTORY: He denies smoking. Former alcohol user which he stopped. Previous cocaine user. He is not working and it is unclear what his prior employment was. ALLERGIES: He has no known drug allergies. MEDICATIONS: As an outpatient include allopurinol, apixaban, vitamin D, losartan and Coreg. PRIMARY CARE PHYSICIAN: Arsalan June MD DIRECTOR OF SPA AND GUEST EXPERIENCE: German Baires MD REVIEW OF SYSTEMS: As per HPI. PHYSICAL EXAMINATION: General: He is an obese man in no acute distress. Vital Signs: His weight is 161 kg. He has never had any fever. Temperature is 98, pulse is 82, blood pressure 139/92, respiratory rate is 20, saturating 98% on 2 L. HEENT: Normocephalic. His eyes are anicteric. He has no thrush. He has very poor dentition. He has not been to a dentist in a very long time. He has no mastoid pain at either ear or any pain on pulling the tragus of his ear. Neck: Supple. Lungs: Have diminished breath sounds at the bases due to his body habitus. Heart: Regular rate and rhythm. Abdomen: Soft. Cannot appreciate organomegaly again due to his body habitus. Extremities: Without edema. LABORATORY DATA: White count is 11.9 (of note he received a dose of Solu-Medrol 125 mg last night), his hemoglobin is 14.2, platelets are 279. His BUN is 33 and creatinine is 1.6 with normal liver tests. His urinalysis is negative and his influenza screen is negative. IMPRESSION: In summary this is a 49-year-old man with a 3-week history of cough, bronchitis, admitted with wheezing and hypotension that appears improved. Chest CT to my eyes has no infiltrates. There are no signs of pneumonia. Possibly he has some bronchitis. RECOMMENDATIONS: Do not see a need for Zosyn at this time as he has not been hospitalized since 2017. His hypotension has resolved. Would manage his atrial fibrillation per Cardiology. Can switch him to Rocephin. Please call back if needed. LUCINDA BLOCK M.D. [id number]
--- NOTE | 2019-10-21 13:22 | EKG ---
Test Reason : Blood Pressure : / mmHG Vent. Rate : 081 BPM Atrial Rate : 394 BPM P-R Int : 000 ms QRS Dur : 090 ms QT Int : 382 ms P-R-T Axes : 000 034 -08 degrees QTc Int : 443 ms POOR DATA QUALITY, INTERPRETATION MAY BE ADVERSELY AFFECTED ATRIAL FIBRILLATION CANNOT RULE OUT INFERIOR INFARCT , AGE UNDETERMINED ABNORMAL ECG WHEN COMPARED WITH ECG OF 05-JUN-2017 11:48, NONSPECIFIC T WAVE ABNORMALITY NOW EVIDENT IN INFERIOR LEADS Confirmed by MD Prabhakar, Bradley ([id number]) on 10/21/2019 1:22:29 PM Referred By: Confirmed By:Bardley Radford MD
--- NOTE | 2019-10-21 14:26 | PN ---
Progress Note (short form) - Note Progress Note: PULMONARY CONSULTATION DICTATED 10/21/19 IMP ACUTE HYPOXEMIX RESPIRATORY FAILURE/ BRONCHOSPASM ? PNEUMONIA LLL NODULE ? INFECTIOUS,INFLAMMATORY CHF DIASTOLIC/SYSTOLIC LVEF 40% AFIB HYPOTENSION IMPROVED HTN HLD MORBID OBESITY CKD PLAN ABX PER ID INHALED BRONCHODILATORS SUPPLEMENTAL O2 MEDROL CULTURES RATE CONTROL PER CARDIOLOGY MONITOR LYTES,RENAL FUNCTION F/U CHEST CT ONE MONTH IF NO CHANGE LLL NODULE SUGGEST PET SCAN,BX DR CARRILLO Problem List - Problems (1) Acute hypoxemic respiratory failure Code(s): J96.01 - ACUTE RESPIRATORY FAILURE WITH HYPOXIA (2) Bronchitis Code(s): J40 - BRONCHITIS, NOT SPECIFIED ACUTE OR CHRONIC (3) Cough Code(s): R05 - COUGH (4) Gout Code(s): M10.9 - GOUT, UNSPECIFIED (5) HLD (hyperlipidemia) Code(s): E78.5 - HYPERLIPIDEMIA, UNSPECIFIED (6) HTN (hypertension) Code(s): I10 - ESSENTIAL (PRIMARY) HYPERTENSION (7) Hypotension Code(s): I95.9 - HYPOTENSION, UNSPECIFIED Qualifiers: Hypotension type: unspecified hypotension type Qualified Code(s): I95.9 - Hypotension, unspecified (8) Hypoxia Code(s): R09.02 - HYPOXEMIA (9) Lung nodule < 6cm on CT Code(s): R91.1 - SOLITARY PULMONARY NODULE (10) Morbid obesity with BMI of 50.0-59.9, adult Code(s): E66.01 - MORBID (SEVERE) OBESITY DUE TO EXCESS CALORIES; Z68.43 - BODY MASS INDEX (BMI) 50.0-59.9, ADULT (11) Afib Code(s): I48.91 - UNSPECIFIED ATRIAL FIBRILLATION Qualifiers: Atrial fibrillation type: longstanding persistent Qualified Code(s): I48.11 - Longstanding persistent atrial fibrillation
[2019-10-21 15:16] LABS: ARTERIAL BLD GAS O2 SATURATION 95.4 % (95-98); ARTERIAL BLOOD GAS BASE EXCESS 2.7 meq/l (-2-2); ARTERIAL BLOOD GAS PCO2 41.9 mmHg (35-45); ARTERIAL BLOOD GAS PO2 76.7 mmHg (80-100); ARTERIAL BLOOD GAS pH 7.42 (7.35-7.45)
[2019-10-21 15:20] LABS: ALLENS TEST POSITIVE
[2019-10-21] MEDS ORDERED: DEXTROSE 5%-WATER 100 ML IVPB ONE (15:54)
[2019-10-21] MEDS: methylPREDNISolone NA SUCC 40 MG/1 ML VIAL IVPUSH SCH ×2 (15:55→17:59)
[2019-10-21] MEDS: CEFTRIAXONE 2 GM in DEXTROSE 5%-WATER 100 ML IVPB SCH (15:55)
--- NOTE | 2019-10-21 17:09 | CONS ---
DATE OF CONSULTATION: 10/21/2019 PULMONARY CONSULTATION REFERRING PHYSICIAN: OTDD English HISTORY OF PRESENT ILLNESS: The patient is a 49-year-old male with past medical history which includes diastolic, systolic dysfunction with left ventricular ejection fraction of 40%, hypertension, hyperlipidemia, atrial fibrillation maintained on Eliquis, chronic kidney disease, gout, morbid obesity, nonsmoker, admitted to [facility] with complaint of increasing shortness of breath, cough, chest congestion, and lightheadedness. Patient apparently for the past 2 weeks prior to admission started developing cough associated with sputum production, he also has wheezing with increasing dyspnea on exertion. He saw his PMD, prescribed cough medication. Despite these measures, had persistent symptoms. He went to see Dr. Baires yesterday in the office, was noted to be lightheaded, URI symptoms, and short of breath. He was transferred back and advised to go to the emergency room with the above. In the ER, he was noted to be hypotensive. He was given IV fluid. He was also noted be hypoxic, for which he was placed on supplemental O2. He was administered, first started on broad-spectrum antibiotics and Solu-Medrol and inhaled bronchodilators with good clinical response and transferred up to medical telemetry unit for further management. He denies any chest pain, nausea, vomiting. Denies hemoptysis. Of note, patient underwent a CAT scan of the chest, which revealed a left lower lobe nodular density 1 x 1 x 0.6 cm. As stated before, patient is a nonsmoker, he has no history of occupational exposures. PAST MEDICAL HISTORY: Again includes diastolic and systolic dysfunction with a left ventricular ejection fraction of 30% to 40%, hypertension, hyperlipidemia, morbid obesity, atrial fibrillation, chronic kidney disease. REVIEW OF SYSTEMS: Positive dyspnea. Positive cough. Has no chest pain, no palpitation, no nausea, no vomiting. Positive sputum production. No fever, no chills. CURRENT MEDICATIONS: Include Lidoderm, Cozaar, ceftriaxone, Eliquis, Zyloprim, Lidoderm patch, DuoNeb, Coreg. PHYSICAL EXAMINATION: General: The patient is a morbidly obese male, awake, alert, currently in no acute distress. He is currently afebrile. Vital Signs: Blood pressure 139/92, respiratory rate 20, O2 saturation 98% on 2 L nasal cannula. HEENT: Normocephalic, atraumatic. Neck: Supple. Heart: Irregularly irregular S1, S2. Chest: Diminished breath sounds bilaterally. Abdomen: Soft, bowel sounds positive. Extremities: No cyanosis, edema. LABORATORY: Sodium 135, BUN 33, creatinine 1.6, BNP 181. WBC 11.9, hemoglobin 14.2, hematocrit 41.9 with platelet count 279,000. There are 85 polycytes, [address] scan of the chest again as noted revealed left lower lobe nodular density, no masses or effusions are appreciated. IMPRESSION: 1. Acute hypoxic respiratory failure secondary to likely acute asthmatic bronchitis and/or upper respiratory infection. 2. Left lower lobe nodule, possibly inflammatory, infectious. Possible malignancy. 3. Atrial fibrillation . 4. Congestive heart failure, diastolic and systolic with left ventricular ejection fraction of 40%. 5. Atrial fibrillation. 6. Hypotension, improved. 7. Hyperlipidemia. 8. Chronic kidney disease. 9. Morbid obesity. PLAN: Continue antibiotics as per Infectious Disease. Inhaled bronchodilators. Short course of steroids should patient develop increasing respiratory distress. Rate control as per cardiology. Also obtain followup chest CT in 1 month if there is no change in left lower lobe nodule, suggest PET scan and biopsy. Monitor electrolytes. Renal function. Obtain cultures. Supplemental O2. JASON CARRILLO M.D. [id number] MTDD
[2019-10-21] MEDS: CARVEDILOL 6.25 MG TABLET (FP) PO SCH (21:15)
[2019-10-21] MEDS: LIDOCAINE PATCH REMOVAL MC SCH (21:17)
[2019-10-22] MEDS: methylPREDNISolone NA SUCC 40 MG/1 ML VIAL IVPUSH SCH ×3 (01:31→21:46)
[2019-10-22 06:49] LABS: HEMATOCRIT 41.3 % (35.4-49); LYMPH % 8.8 % (8-40); MCH 32.3 pg (25.7-33.7); MEAN CELL VOLUME 95.1 fl (80-96); MEAN PLT VOLUME 8.5 fl (7.5-11.1); MONO % 1.2 % (3.8-10.2); PLATELET COUNT 285 K/MM3 (134-434); RBC 4.34 M/mm3 (4.00-5.60); WHITE BLOOD COUNT 13.2 K/mm3 (4.0-10.0)
[2019-10-22 07:11] LABS: ALBUMIN 3.4 g/dl (3.4-5.0); BILIRUBIN,TOTAL 0.4 mg/dL (0.2-1); BLOOD UREA NITROGEN 39.9 mg/dL (7-18); CALCIUM 9.3 mg/dL (8.5-10.1); CREATININE 1.2 mg/dL (0.55-1.3); MAGNESIUM 2.2 mg/dL (1.8-2.4); POTASSIUM 4.2 mmol/L (3.5-5.1); TOT PROT 7.9 g/dl (6.4-8.2)
--- NOTE | 2019-10-22 07:40 | PN ---
Progress Note, Physician Chief Complaint: States breathing is much improved. 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 - Current Medication List Current Medications: Active Medications Albuterol/Ipratropium (Duoneb -) 1 amp NEB Q4H PRN PRN Reason: SHORTNESS OF BREATH Allopurinol (Zyloprim -) 300 mg PO DAILY [facility] Last Admin: 10/21/19 10:48 Dose: 300 mg Apixaban (Eliquis -) 5 mg PO BID [facility] Last Admin: 10/21/19 21:15 Dose: 5 mg Carvedilol (Coreg -) 6.25 mg PO BID [facility] Last Admin: 10/21/19 21:15 Dose: 6.25 mg Ergocalciferol (Drisdol -) 50,000 unit PO TU [facility] Ceftriaxone Sodium 2 gm/ (Dextrose) 100 mls @ 100 mls/hr IVPB DAILY [facility]; Protocol Last Admin: 10/21/19 15:55 Dose: 100 mls/hr Lidocaine (Lidoderm Patch -) 1 patch TP DAILY [facility] Last Admin: 10/21/19 11:48 Dose: 1 patch Losartan Potassium (Cozaar -) 100 mg PO DAILY [facility] Last Admin: 10/21/19 10:49 Dose: 100 mg Methylprednisolone Sodium Succinate (Solu-Medrol -) 40 mg IVPUSH Q12H [facility] Miscellaneous (Lidoderm Patch Removal) 1 each MC DAILY@2200 [facility] Last Admin: 10/21/19 21:17 Dose: Not Given - Objective Vital Signs: Vital Signs Temperature 97 F L 10/22/19 06:00 Pulse Rate 77 10/22/19 06:00 Respiratory Rate 20 10/22/19 06:00 Blood Pressure 120/64 10/22/19 06:00 O2 Sat by Pulse Oximetry (%) 98 10/21/19 21:00 Additional Findings/Remarks: Constitutional: Yes: No Distress, Calm, Mordibly obese Eyes: Yes: WNL, Conjunctiva Clear HENT: Yes: WNL, Atraumatic, Normocephalic Neck: Yes: WNL, Supple, Trachea Midline Cardiovascular: Yes: Pulse Irregular Respiratory: Yes: Regular, CTA Bilaterally, Diminished (at bases), On Nasal O2 Gastrointestinal: Yes: Normal Bowel Sounds, Soft, Abdomen, Obese ...Rectal Exam: Yes: Deferred Genitourinary: Yes: WNL Breast(s): Yes: WNL Musculoskeletal: Yes: Joint Stiffness (right knee) Extremities: Yes: WNL Edema: No Peripheral Pulses WNL: Yes Peripheral Pulses: Left Radial: 2+, Right Radial: 2+, Left Doralis Pedis: 2+, Right Dorsalis Pedis: 2+, Left Femoral: 2+, Right Femoral: 2+ Integumentary: Yes: Tattoos (to left chest) Neurological: Yes: WNL, Alert, Oriented ...Motor Strength: WNL Psychiatric: Yes: WNL Labs: CBC, BMP 10/22/19 05:35 Problem List - Problems (1) HTN (hypertension) Assessment/Plan: normotensive now, BP low on presentation to ED c/w losartan with hold parameters Code(s): I10 - ESSENTIAL (PRIMARY) HYPERTENSION (2) HLD (hyperlipidemia) Assessment/Plan: c/w low chol diet counseled on weight loss RD consultation requested Code(s): E78.5 - HYPERLIPIDEMIA, UNSPECIFIED (3) Morbid obesity with BMI of 50.0-59.9, adult Assessment/Plan: counseled on weight loss low fat/chol diet encourage exercise regimine on discharge Code(s): E66.01 - MORBID (SEVERE) OBESITY DUE TO EXCESS CALORIES; Z68.43 - BODY MASS INDEX (BMI) 50.0-59.9, ADULT (4) Afib Assessment/Plan: chronic AF, rate controlled c/w coreg 6.25mg bid Dr Baires following Code(s): I48.91 - UNSPECIFIED ATRIAL FIBRILLATION Qualifiers: Atrial fibrillation type: longstanding persistent Qualified Code(s): I48.11 - Longstanding persistent atrial fibrillation (5) Gout Assessment/Plan: stable c/w allopurinol Code(s): M10.9 - GOUT, UNSPECIFIED (6) Prophylactic measure Assessment/Plan: FEN Fluids: adequate PO intake Electrolytes: monitor & replete as needed Nutrition: low fat/chol diet DVT moderate risk c/w eliquis Dispo Maintain as inpatient full code discharge planning Code(s): Z29.9 - ENCOUNTER FOR PROPHYLACTIC MEASURES, UNSPECIFIED (7) Cough Assessment/Plan: resolving supplemental O2 to maintain SPO2 >88% robutussin prn Incentive spirometry duonebs prn given solmedrol 125mg in ED, c/w solumedrol decreasing to 40mg q12h c/w rocephin Code(s): R05 - COUGH (8) Lung nodule < 6cm on CT Assessment/Plan: CT findings demonstrating suspicious nodular density left lower lobe 1.1 x 1.0 x 1.6 cm PET scan as outpatient Pulm consultation requested Code(s): R91.1 - SOLITARY PULMONARY NODULE (9) Obstructive sleep apnea Assessment/Plan: MAGGY screening done and mild sleep apnea noted AH 5.7 will conmtinue to monitor and recommend official sleep study as outpatient Code(s): G47.33 - OBSTRUCTIVE SLEEP APNEA (ADULT) (PEDIATRIC) Visit type - Emergency Visit Emergency Visit: Yes ED Registration Date: 10/20/19 Care time: The patient presented to the Emergency Department on the above date and was hospitalized for further evaluation of their emergent condition. - New Patient This patient is new to me today: No - Critical Care Critical Care patient: No - Discharge Referral Referred to [facility] Med P.C.: No
[2019-10-22] MEDS ORDERED: DEXTROSE 5%-WATER 100 ML IVPB ONE (08:46)
[2019-10-22] MEDS: CEFTRIAXONE 2 GM in DEXTROSE 5%-WATER 100 ML IVPB SCH (09:22)
[2019-10-22] MEDS: CARVEDILOL 6.25 MG TABLET (FP) PO SCH ×2 (09:23→21:45)
[2019-10-22] MEDS: LOSARTAN POTASSIUM 50 MG TABLET (FP) PO SCH (09:23)
[2019-10-22] MEDS: APIXABAN 5 MG TABLET PO SCH ×2 (09:23→21:45)
[2019-10-22] MEDS: ALLOPURINOL 300 MG TABLET (FP) PO SCH (09:23)
[2019-10-22] MEDS: LIDOCAINE 5% TOPICAL PATCH TP SCH (09:28)
--- NOTE | 2019-10-22 09:35 | PN ---
Progress Note, Physician History of Present Illness: BAPTISTE, decreased exercise capacity, chest pain, productive cough, wheeze improving with treatment, afib remains rate-controlled, BP stable. - Current Medication List Current Medications: Active Medications Albuterol/Ipratropium (Duoneb -) 1 amp NEB Q4H PRN PRN Reason: SHORTNESS OF BREATH Allopurinol (Zyloprim -) 300 mg PO DAILY [facility] Last Admin: 10/22/19 09:23 Dose: 300 mg Apixaban (Eliquis -) 5 mg PO BID [facility] Last Admin: 10/22/19 09:23 Dose: 5 mg Carvedilol (Coreg -) 6.25 mg PO BID [facility] Last Admin: 10/22/19 09:23 Dose: 6.25 mg Ergocalciferol (Drisdol -) 50,000 unit PO TU [facility] Ceftriaxone Sodium 2 gm/ (Dextrose) 100 mls @ 100 mls/hr IVPB DAILY [facility]; Protocol Last Admin: 10/22/19 09:22 Dose: 100 mls/hr Lidocaine (Lidoderm Patch -) 1 patch TP DAILY [facility] Last Admin: 10/22/19 09:28 Dose: Not Given Losartan Potassium (Cozaar -) 100 mg PO DAILY [facility] Last Admin: 10/22/19 09:23 Dose: 100 mg Methylprednisolone Sodium Succinate (Solu-Medrol -) 40 mg IVPUSH Q12H [facility] Last Admin: 10/22/19 09:23 Dose: 40 mg Miscellaneous (Lidoderm Patch Removal) 1 each MC DAILY@2200 [facility] Last Admin: 10/21/19 21:17 Dose: Not Given - Objective Vital Signs: Vital Signs Temperature 97 F L 10/22/19 06:00 Pulse Rate 77 10/22/19 06:00 Respiratory Rate 20 10/22/19 06:00 Blood Pressure 120/64 10/22/19 06:00 O2 Sat by Pulse Oximetry (%) 98 10/21/19 21:00 Constitutional: Yes: No Distress, Calm Neck: Yes: Supple Cardiovascular: Yes: Pulse Irregular Respiratory: Yes: Regular, Diminished Gastrointestinal: Yes: Normal Bowel Sounds, Soft, Abdomen, Obese Edema: No Labs: CBC, BMP 10/22/19 05:35 10/22/19 05:35 - ....Imaging EKG: Report Reviewed (Tele: Rate-controlled afib) Problem List - Problems (1) Acute hypoxemic respiratory failure Code(s): J96.01 - ACUTE RESPIRATORY FAILURE WITH HYPOXIA (2) Bronchitis Code(s): J40 - BRONCHITIS, NOT SPECIFIED ACUTE OR CHRONIC (3) HLD (hyperlipidemia) Code(s): E78.5 - HYPERLIPIDEMIA, UNSPECIFIED (4) HTN (hypertension) Code(s): I10 - ESSENTIAL (PRIMARY) HYPERTENSION (5) Morbid obesity with BMI of 50.0-59.9, adult Code(s): E66.01 - MORBID (SEVERE) OBESITY DUE TO EXCESS CALORIES; Z68.43 - BODY MASS INDEX (BMI) 50.0-59.9, ADULT (6) Afib Code(s): I48.91 - UNSPECIFIED ATRIAL FIBRILLATION Qualifiers: Atrial fibrillation type: longstanding persistent Qualified Code(s): I48.11 - Longstanding persistent atrial fibrillation (7) Hypertensive cardiomyopathy Code(s): I11.9 - HYPERTENSIVE HEART DISEASE WITHOUT HEART FAILURE; I42.9 - CARDIOMYOPATHY, UNSPECIFIED Qualifiers: Heart failure presence: with heart failure Qualified Code(s): I11.0 - Hypertensive heart disease with heart failure (8) Obesity Code(s): E66.9 - OBESITY, UNSPECIFIED Qualifiers: Obesity type: due to excess calories Assessment/Plan 10/20/[address] LLL nodule, no lung consolidation, bronchiectasis or fibrosis 12/18 Echo: Mild-mod NATASHA, mild dilated LV with mild decrease LV fxn, mild cLVH, mod MR, TR, RVSP 39 mmHg 1. Acute hypoxemix respiratory failure -> Acute bronchitis triggered by URI improving 2. Chest pain syndrome with atypical features 3. Diastolic dysfunction 4. Persistent atrial fibrillation [id number] score 2 on NOAC 5. H/o HTN 6. Hypercholesterolemia 7. Hyperglycemia 8. Ruled out obstructive sleep apnea via PSG 7. Morbid obesity 8. H/o polysubstance abuse- etoh and cocaine (none since December) 9. Gout 10. CKD 11. LLL nodule ? infectious PLAN: 1. BD, O2 as needed to maintain saO2>90%, IV steroid taper with GI protection and empiric abx, ruled out for CT 2. Continue carvedilol 6.25 bid as hemodynamics tolerate 3. Continue Cozaar 100 qd as hemodynamics tolerate as renal fxn stable 4. Continue Eliquis 5 bid 5. [address] chest CT f/u of LLL nodule 6. Encourage ambulation
--- NOTE | 2019-10-22 10:54 | PN ---
Progress Note, Physician History of Present Illness: pulmonary alert,feeling better,less cough,less wheezes - Current Medication List Current Medications: Active Medications Albuterol/Ipratropium (Duoneb -) 1 amp NEB Q4H PRN PRN Reason: SHORTNESS OF BREATH Allopurinol (Zyloprim -) 300 mg PO DAILY [facility] Last Admin: 10/22/19 09:23 Dose: 300 mg Apixaban (Eliquis -) 5 mg PO BID [facility] Last Admin: 10/22/19 09:23 Dose: 5 mg Carvedilol (Coreg -) 6.25 mg PO BID [facility] Last Admin: 10/22/19 09:23 Dose: 6.25 mg Ergocalciferol (Drisdol -) 50,000 unit PO [facility] [place] Ceftriaxone Sodium 2 gm/ (Dextrose) 100 mls @ 100 mls/hr IVPB DAILY [facility]; Protocol Last Admin: 10/22/19 09:22 Dose: 100 mls/hr Lidocaine (Lidoderm Patch -) 1 patch TP DAILY [facility] Last Admin: 10/22/19 09:28 Dose: Not Given Losartan Potassium (Cozaar -) 100 mg PO DAILY [facility] Last Admin: 10/22/19 09:23 Dose: 100 mg Methylprednisolone Sodium Succinate (Solu-Medrol -) 40 mg IVPUSH Q12H [facility] Last Admin: 10/22/19 09:23 Dose: 40 mg Miscellaneous (Lidoderm Patch Removal) 1 each MC DAILY@2200 [facility] Last Admin: 10/21/19 21:17 Dose: Not Given - Objective Vital Signs: Vital Signs Temperature 97 F L 10/22/19 06:00 Pulse Rate 77 10/22/19 06:00 Respiratory Rate 20 10/22/19 06:00 Blood Pressure 120/64 10/22/19 06:00 O2 Sat by Pulse Oximetry (%) 98 10/21/19 21:00 Constitutional: Yes: Calm, Obese Eyes: Yes: WNL HENT: Yes: WNL Neck: Yes: WNL Cardiovascular: Yes: Pulse Irregular, S1, S2 Respiratory: Yes: Wheezes (few wheezes) Gastrointestinal: Yes: Normal Bowel Sounds, Soft, Abdomen, Obese Extremities: Yes: WNL Edema: Yes Labs: CBC, BMP 10/22/19 05:35 10/22/19 05:35 Problem List - Problems (1) Acute hypoxemic respiratory failure Code(s): J96.01 - ACUTE RESPIRATORY FAILURE WITH HYPOXIA (2) Bronchitis Code(s): J40 - BRONCHITIS, NOT SPECIFIED ACUTE OR CHRONIC (3) Cough Code(s): R05 - COUGH (4) Gout Code(s): M10.9 - GOUT, UNSPECIFIED (5) HLD (hyperlipidemia) Code(s): E78.5 - HYPERLIPIDEMIA, UNSPECIFIED (6) HTN (hypertension) Code(s): I10 - ESSENTIAL (PRIMARY) HYPERTENSION (7) Hypotension Code(s): I95.9 - HYPOTENSION, UNSPECIFIED Qualifiers: Hypotension type: unspecified hypotension type Qualified Code(s): I95.9 - Hypotension, unspecified (8) Hypoxia Code(s): R09.02 - HYPOXEMIA (9) Lung nodule < 6cm on CT Code(s): R91.1 - SOLITARY PULMONARY NODULE (10) Morbid obesity with BMI of 50.0-59.9, adult Code(s): E66.01 - MORBID (SEVERE) OBESITY DUE TO EXCESS CALORIES; Z68.43 - BODY MASS INDEX (BMI) 50.0-59.9, ADULT (11) Afib Code(s): I48.91 - UNSPECIFIED ATRIAL FIBRILLATION Qualifiers: Atrial fibrillation type: longstanding persistent Qualified Code(s): I48.11 - Longstanding persistent atrial fibrillation Assessment/Plan IMP ACUTE HYPOXEMIX RESPIRATORY FAILURE/ BRONCHOSPASM ? PNEUMONIA LLL NODULE ? INFECTIOUS,INFLAMMATORY CHF DIASTOLIC/SYSTOLIC LVEF 40% AFIB HYPOTENSION IMPROVED HTN HLD MORBID OBESITY CKD PLAN ABX PER ID INHALED BRONCHODILATORS SUPPLEMENTAL O2 MEDROL TAPER CULTURES RATE CONTROL PER CARDIOLOGY MONITOR LYTES,RENAL FUNCTION F/U CHEST CT ONE MONTH IF NO CHANGE LLL NODULE SUGGEST PET SCAN,BX DR CARRILLO Problem List - Problems (1) Acute hypoxemic respiratory failure Code(s): J96.01 - ACUTE RESPIRATORY FAILURE WITH HYPOXIA (2) Bronchitis Code(s): J40 - BRONCHITIS, NOT SPECIFIED ACUTE OR CHRONIC (3) Cough Code(s): R05 - COUGH (4) Gout Code(s): M10.9 - GOUT, UNSPECIFIED (5) HLD (hyperlipidemia) Code(s): E78.5 - HYPERLIPIDEMIA, UNSPECIFIED (6) HTN (hypertension) Code(s): I10 - ESSENTIAL (PRIMARY) HYPERTENSION (7) Hypotension Code(s): I95.9 - HYPOTENSION, UNSPECIFIED Qualifiers: Hypotension type: unspecified hypotension type Qualified Code(s): I95.9 - Hypotension, unspecified (8) Hypoxia Code(s): R09.02 - HYPOXEMIA (9) Lung nodule < 6cm on CT Code(s): R91.1 - SOLITARY PULMONARY NODULE (10) Morbid obesity with BMI of 50.0-59.9, adult Code(s): E66.01 - MORBID (SEVERE) OBESITY DUE TO EXCESS CALORIES; Z68.43 - BODY MASS INDEX (BMI) 50.0-59.9, ADULT (11) Afib Code(s): I48.91 - UNSPECIFIED ATRIAL FIBRILLATION Qualifiers: Atrial fibrillation type: persistent
[2019-10-22] MEDS: guaiFENesin/D-M SUGAR-FREE/ACLHOL-FREE 118 ML BOTTLE PO PRN (21:45)
[2019-10-22] MEDS: LIDOCAINE PATCH REMOVAL MC SCH (22:20)
[2019-10-23 07:36] LABS: BASO % 0.1 % (0-2.0); HEMATOCRIT 41.6 % (35.4-49); HEMOGLOBIN 14.1 GM/dL (11.7-16.9); LYMPH % 8.1 % (8-40); MCH 32.3 pg (25.7-33.7); MCHC 33.9 g/dl (32.0-35.9); MEAN CELL VOLUME 95.5 fl (80-96); MEAN PLT VOLUME 8.6 fl (7.5-11.1); MONO % 3.8 % (3.8-10.2); PLATELET COUNT 299 K/MM3 (134-434); RBC 4.35 M/mm3 (4.00-5.60); RDW 15.2 % (11.9-15.9); WHITE BLOOD COUNT 16.3 K/mm3 (4.0-10.0)
--- NOTE | 2019-10-23 07:53 | PN ---
Progress Note, Physician Chief Complaint: Breathing much improved. IV steroids/abx to be converted to PO. Discharge tomorrow is stable on oral meds History of Present Illness: 49 M h/o morbid obesity, HTN, HLD, Afib (on eliquis), gout, sent from his [employer] office due to 2-3 weeks of productive cough w/ yellowish sputum. - Current Medication List Current Medications: Active Medications Albuterol/Ipratropium (Duoneb -) 1 amp NEB Q4H PRN PRN Reason: SHORTNESS OF BREATH Allopurinol (Zyloprim -) 300 mg PO DAILY [facility] Last Admin: 10/22/19 09:23 Dose: 300 mg Apixaban (Eliquis -) 5 mg PO BID [facility] Last Admin: 10/22/19 21:45 Dose: 5 mg Carvedilol (Coreg -) 6.25 mg PO BID [facility] Last Admin: 10/22/19 21:45 Dose: 6.25 mg Ergocalciferol (Drisdol -) 50,000 unit PO [facility] [place] Guaifenesin (Diabetic Tussin Dm -) 10 ml PO Q6H PRN PRN Reason: COUGH Last Admin: 10/22/19 21:45 Dose: 10 ml Ceftriaxone Sodium 2 gm/ (Dextrose) 100 mls @ 100 mls/hr IVPB DAILY [facility]; Protocol Last Admin: 10/22/19 09:22 Dose: 100 mls/hr Lidocaine (Lidoderm Patch -) 1 patch TP DAILY [facility] Last Admin: 10/22/19 09:28 Dose: Not Given Losartan Potassium (Cozaar -) 100 mg PO DAILY [facility] Last Admin: 10/22/19 09:23 Dose: 100 mg Methylprednisolone Sodium Succinate (Solu-Medrol -) 40 mg IVPUSH Q12H [facility] Last Admin: 10/22/19 21:46 Dose: 40 mg Miscellaneous (Lidoderm Patch Removal) 1 each MC DAILY@2200 [facility] Last Admin: 10/22/19 22:20 Dose: Not Given - Objective Vital Signs: Vital Signs Temperature 98.1 F 10/23/19 01:47 Pulse Rate 62 10/23/19 06:00 Respiratory Rate 18 10/23/19 06:00 Blood Pressure 132/78 10/23/19 01:47 O2 Sat by Pulse Oximetry (%) 97 10/22/19 21:00 Additional Findings/Remarks: Constitutional: Yes: No Distress, Calm, Mordibly obese Eyes: Yes: WNL, Conjunctiva Clear HENT: Yes: WNL, Atraumatic, Normocephalic Neck: Yes: WNL, Supple, Trachea Midline Cardiovascular: Yes: Pulse Irregular Respiratory: Yes: Regular, CTA Bilaterally, Diminished (at bases-due to body habitus) off NC Gastrointestinal: Yes: Normal Bowel Sounds, Soft, Abdomen, Obese ...Rectal Exam: Yes: Deferred Genitourinary: Yes: WNL Breast(s): Yes: WNL Musculoskeletal: Yes: Joint Stiffness (right knee) Extremities: Yes: WNL Edema: No Peripheral Pulses WNL: Yes Peripheral Pulses: Left Radial: 2+, Right Radial: 2+, Left Doralis Pedis: 2+, Right Dorsalis Pedis: 2+, Left Femoral: 2+, Right Femoral: 2+ Integumentary: Yes: Tattoos (to left chest) Neurological: Yes: WNL, Alert, Oriented ...Motor Strength: WNL Psychiatric: Yes: WNL Problem List - Problems (1) HTN (hypertension) Assessment/Plan: normotensive now, BP low on presentation to ED c/w losartan with hold parameters Code(s): I10 - ESSENTIAL (PRIMARY) HYPERTENSION (2) HLD (hyperlipidemia) Assessment/Plan: c/w low chol diet counseled on weight loss RD consultation requested Code(s): E78.5 - HYPERLIPIDEMIA, UNSPECIFIED (3) Morbid obesity with BMI of 50.0-59.9, adult Assessment/Plan: counseled on weight loss low fat/chol diet encourage exercise regimine on discharge Code(s): E66.01 - MORBID (SEVERE) OBESITY DUE TO EXCESS CALORIES; Z68.43 - BODY MASS INDEX (BMI) 50.0-59.9, ADULT (4) Afib Assessment/Plan: chronic AF, rate controlled c/w coreg 6.25mg bid Dr Baires following Code(s): I48.91 - UNSPECIFIED ATRIAL FIBRILLATION Qualifiers: Atrial fibrillation type: longstanding persistent Qualified Code(s): I48.11 - Longstanding persistent atrial fibrillation (5) Gout Assessment/Plan: stable c/w allopurinol Code(s): M10.9 - GOUT, UNSPECIFIED (6) Prophylactic measure Assessment/Plan: FEN Fluids: adequate PO intake Electrolytes: monitor & replete as needed Nutrition: low fat/chol diet DVT moderate risk c/w eliquis Dispo Maintain as inpatient full code discharge planning Code(s): Z29.9 - ENCOUNTER FOR PROPHYLACTIC MEASURES, UNSPECIFIED (7) Cough Assessment/Plan: resolved Incentive spirometry duonebs prn steroids changed to PO rocephin completed and will continue Code(s): R05 - COUGH (8) Lung nodule < 6cm on CT Assessment/Plan: CT findings demonstrating suspicious nodular density left lower lobe 1.1 x 1.0 x 1.6 cm PET scan as outpatient Pulm consultation appreciated Code(s): R91.1 - SOLITARY PULMONARY NODULE (9) Obstructive sleep apnea Assessment/Plan: MAGGY screening done and mild sleep apnea noted AH 5.7 will need official sleep study as outpatient Code(s): G47.33 - OBSTRUCTIVE SLEEP APNEA (ADULT) (PEDIATRIC) Visit type - Emergency Visit Emergency Visit: Yes ED Registration Date: 10/20/19 Care time: The patient presented to the Emergency Department on the above date and was hospitalized for further evaluation of their emergent condition. - New Patient This patient is new to me today: No - Critical Care Critical Care patient: No - Discharge Referral Referred to [facility] Med P.C.: No
[2019-10-23 08:43] LABS: ALBUMIN 3.3 g/dl (3.4-5.0); BILIRUBIN,TOTAL 0.5 mg/dL (0.2-1); BLOOD UREA NITROGEN 39.4 mg/dL (7-18); CALCIUM 9.5 mg/dL (8.5-10.1); CREATININE 1.2 mg/dL (0.55-1.3); MAGNESIUM 2.1 mg/dL (1.8-2.4); TOT PROT 7.6 g/dl (6.4-8.2)
[2019-10-23] MEDS ORDERED: DEXTROSE 5%-WATER 100 ML IVPB ONE (09:47)
--- NOTE | 2019-10-23 10:19 | PN ---
Progress Note, Physician History of Present Illness: BAPTISTE, decreased exercise capacity, chest pain, productive cough, wheeze improving with treatment, afib remains rate-controlled, BP stable. - Current Medication List Current Medications: Active Medications Albuterol/Ipratropium (Duoneb -) 1 amp NEB Q4H PRN PRN Reason: SHORTNESS OF BREATH Allopurinol (Zyloprim -) 300 mg PO DAILY [facility] Last Admin: 10/22/19 09:23 Dose: 300 mg Apixaban (Eliquis -) 5 mg PO BID [facility] Last Admin: 10/22/19 21:45 Dose: 5 mg Carvedilol (Coreg -) 6.25 mg PO BID [facility] Last Admin: 10/22/19 21:45 Dose: 6.25 mg Ergocalciferol (Drisdol -) 50,000 unit PO [facility] [place] Guaifenesin (Diabetic Tussin Dm -) 10 ml PO Q6H PRN PRN Reason: COUGH Last Admin: 10/22/19 21:45 Dose: 10 ml Ceftriaxone Sodium 2 gm/ (Dextrose) 100 mls @ 100 mls/hr IVPB DAILY [facility]; Protocol Last Admin: 10/22/19 09:22 Dose: 100 mls/hr Lidocaine (Lidoderm Patch -) 1 patch TP DAILY [facility] Last Admin: 10/22/19 09:28 Dose: Not Given Losartan Potassium (Cozaar -) 100 mg PO DAILY [facility] Last Admin: 10/22/19 09:23 Dose: 100 mg Methylprednisolone Sodium Succinate (Solu-Medrol -) 40 mg IVPUSH Q12H [facility] Last Admin: 10/22/19 21:46 Dose: 40 mg Miscellaneous (Lidoderm Patch Removal) 1 each MC DAILY@2200 [facility] Last Admin: 10/22/19 22:20 Dose: Not Given - Objective Vital Signs: Vital Signs Temperature 98.1 F 10/23/19 01:47 Pulse Rate 62 10/23/19 06:00 Respiratory Rate 18 10/23/19 06:00 Blood Pressure 132/78 10/23/19 01:47 O2 Sat by Pulse Oximetry (%) 97 10/22/19 21:00 Constitutional: Yes: No Distress, Calm Neck: Yes: Supple Cardiovascular: Yes: Pulse Irregular Respiratory: Yes: Regular, CTA Bilaterally Gastrointestinal: Yes: Normal Bowel Sounds, Soft, Abdomen, Obese Edema: No Labs: CBC, BMP 10/23/19 05:50 10/23/19 05:50 - ....Imaging EKG: Report Reviewed (Tele: Rate-controlled afib) Problem List - Problems (1) Acute hypoxemic respiratory failure Code(s): J96.01 - ACUTE RESPIRATORY FAILURE WITH HYPOXIA (2) Bronchitis Code(s): J40 - BRONCHITIS, NOT SPECIFIED ACUTE OR CHRONIC (3) HLD (hyperlipidemia) Code(s): E78.5 - HYPERLIPIDEMIA, UNSPECIFIED (4) HTN (hypertension) Code(s): I10 - ESSENTIAL (PRIMARY) HYPERTENSION (5) Morbid obesity with BMI of 50.0-59.9, adult Code(s): E66.01 - MORBID (SEVERE) OBESITY DUE TO EXCESS CALORIES; Z68.43 - BODY MASS INDEX (BMI) 50.0-59.9, ADULT (6) Afib Code(s): I48.91 - UNSPECIFIED ATRIAL FIBRILLATION Qualifiers: Atrial fibrillation type: longstanding persistent Qualified Code(s): I48.11 - Longstanding persistent atrial fibrillation (7) Hypertensive cardiomyopathy Code(s): I11.9 - HYPERTENSIVE HEART DISEASE WITHOUT HEART FAILURE; I42.9 - CARDIOMYOPATHY, UNSPECIFIED Qualifiers: Heart failure presence: with heart failure Qualified Code(s): I11.0 - Hypertensive heart disease with heart failure (8) Obesity Code(s): E66.9 - OBESITY, UNSPECIFIED Qualifiers: Obesity type: due to excess calories Assessment/Plan 10/20/[address] LLL nodule, no lung consolidation, bronchiectasis or fibrosis 12/18 Echo: Mild-mod NATASHA, mild dilated LV with mild decrease LV fxn, mild cLVH, mod MR, TR, RVSP 39 mmHg 1. Acute hypoxemix respiratory failure -> Acute bronchitis triggered by URI improving 2. Chest pain syndrome with atypical features 3. Diastolic dysfunction 4. Persistent atrial fibrillation [id number] score 2 on NOAC 5. H/o HTN 6. Hypercholesterolemia 7. Hyperglycemia 8. Ruled out obstructive sleep apnea via PSG 7. Morbid obesity 8. H/o polysubstance abuse- etoh and cocaine (none since December) 9. Gout 10. CKD 11. LLL nodule ? infectious PLAN: 1. BD, O2 as needed to maintain saO2>90%, IV steroid taper with GI protection and empiric abx, ruled out for TN 2. Continue carvedilol 6.25 bid as hemodynamics tolerate 3. Continue Cozaar 100 qd as hemodynamics tolerate as renal fxn stable 4. Continue Eliquis 5 bid 5. Outpatient chest CT f/u of LLL nodule 6. Encourage ambulation, d/c planning in AM
[2019-10-23] MEDS: CEFTRIAXONE 2 GM in DEXTROSE 5%-WATER 100 ML IVPB SCH (10:30)
[2019-10-23] MEDS: methylPREDNISolone NA SUCC 40 MG/1 ML VIAL IVPUSH SCH (10:30)
[2019-10-23] MEDS: CARVEDILOL 6.25 MG TABLET (FP) PO SCH ×2 (10:31→21:23)
[2019-10-23] MEDS: LIDOCAINE 5% TOPICAL PATCH TP SCH (10:31)
[2019-10-23] MEDS: APIXABAN 5 MG TABLET PO SCH ×2 (10:31→21:24)
[2019-10-23] MEDS: ALLOPURINOL 300 MG TABLET (FP) PO SCH (10:31)
[2019-10-23] MEDS: LOSARTAN POTASSIUM 50 MG TABLET (FP) PO SCH (10:32)
--- NOTE | 2019-10-23 11:15 | PN ---
Progress Note, Physician History of Present Illness: pulmonary alert,feeling better,-sob,less cough,-wheezing - Current Medication List Current Medications: Active Medications Albuterol/Ipratropium (Duoneb -) 1 amp NEB Q4H PRN PRN Reason: SHORTNESS OF BREATH Allopurinol (Zyloprim -) 300 mg PO DAILY [facility] Last Admin: 10/23/19 10:31 Dose: 300 mg Apixaban (Eliquis -) 5 mg PO BID [facility] Last Admin: 10/23/19 10:31 Dose: 5 mg Carvedilol (Coreg -) 6.25 mg PO BID [facility] Last Admin: 10/23/19 10:31 Dose: 6.25 mg Ergocalciferol (Drisdol -) 50,000 unit PO [facility] [place] Guaifenesin (Diabetic Tussin Dm -) 10 ml PO Q6H PRN PRN Reason: COUGH Last Admin: 10/22/19 21:45 Dose: 10 ml Ceftriaxone Sodium 2 gm/ (Dextrose) 100 mls @ 100 mls/hr IVPB DAILY [facility]; Protocol Last Admin: 10/23/19 10:30 Dose: 100 mls/hr Lidocaine (Lidoderm Patch -) 1 patch TP DAILY [facility] Last Admin: 10/23/19 10:31 Dose: Not Given Losartan Potassium (Cozaar -) 100 mg PO DAILY [facility] Last Admin: 10/23/19 10:32 Dose: 100 mg Methylprednisolone Sodium Succinate (Solu-Medrol -) 40 mg IVPUSH Q12H [facility] Last Admin: 10/23/19 10:30 Dose: 40 mg Miscellaneous (Lidoderm Patch Removal) 1 each MC DAILY@2200 [facility] Last Admin: 10/22/19 22:20 Dose: Not Given - Objective Vital Signs: Vital Signs Temperature 98.1 F 10/23/19 01:47 Pulse Rate 62 10/23/19 06:00 Respiratory Rate 18 10/23/19 06:00 Blood Pressure 132/78 10/23/19 01:47 O2 Sat by Pulse Oximetry (%) 97 10/22/19 21:00 Constitutional: Yes: Well Nourished, Calm, Obese Eyes: Yes: WNL HENT: Yes: WNL Neck: Yes: WNL Cardiovascular: Yes: Pulse Irregular, S1, S2 Respiratory: Yes: Diminished Gastrointestinal: Yes: Normal Bowel Sounds, Soft Extremities: Yes: WNL Edema: Yes Labs: CBC, BMP 10/23/19 05:50 10/23/19 05:50 Problem List - Problems (1) Acute hypoxemic respiratory failure Code(s): J96.01 - ACUTE RESPIRATORY FAILURE WITH HYPOXIA (2) Bronchitis Code(s): J40 - BRONCHITIS, NOT SPECIFIED ACUTE OR CHRONIC (3) Cough Code(s): R05 - COUGH (4) Gout Code(s): M10.9 - GOUT, UNSPECIFIED (5) HLD (hyperlipidemia) Code(s): E78.5 - HYPERLIPIDEMIA, UNSPECIFIED (6) HTN (hypertension) Code(s): I10 - ESSENTIAL (PRIMARY) HYPERTENSION (7) Hypotension Code(s): I95.9 - HYPOTENSION, UNSPECIFIED Qualifiers: Hypotension type: unspecified hypotension type Qualified Code(s): I95.9 - Hypotension, unspecified (8) Hypoxia Code(s): R09.02 - HYPOXEMIA (9) Lung nodule < 6cm on CT Code(s): R91.1 - SOLITARY PULMONARY NODULE (10) Morbid obesity with BMI of 50.0-59.9, adult Code(s): E66.01 - MORBID (SEVERE) OBESITY DUE TO EXCESS CALORIES; Z68.43 - BODY MASS INDEX (BMI) 50.0-59.9, ADULT (11) Afib Code(s): I48.91 - UNSPECIFIED ATRIAL FIBRILLATION Qualifiers: Atrial fibrillation type: longstanding persistent Qualified Code(s): I48.11 - Longstanding persistent atrial fibrillation Assessment/Plan IMP ACUTE HYPOXEMIX RESPIRATORY FAILURE/ BRONCHOSPASM IMPROVED ? PNEUMONIA LLL NODULE ? INFECTIOUS,INFLAMMATORY CHF DIASTOLIC/SYSTOLIC LVEF 40% AFIB HYPOTENSION IMPROVED HTN HLD MORBID OBESITY CKD PLAN ABX PER ID INHALED BRONCHODILATORS SUPPLEMENTAL O2 TAPER STEROIDS CULTURES RATE CONTROL PER CARDIOLOGY MONITOR LYTES,RENAL FUNCTION F/U CHEST CT ONE MONTH IF NO CHANGE LLL NODULE SUGGEST PET SCAN,BX DR CARRILLO Problem List - Problems (1) Acute hypoxemic respiratory failure Code(s): J96.01 - ACUTE RESPIRATORY FAILURE WITH HYPOXIA (2) Bronchitis Code(s): J40 - BRONCHITIS, NOT SPECIFIED ACUTE OR CHRONIC (3) Cough Code(s): R05 - COUGH (4) Gout Code(s): M10.9 - GOUT, UNSPECIFIED (5) HLD (hyperlipidemia) Code(s): E78.5 - HYPERLIPIDEMIA, UNSPECIFIED (6) HTN (hypertension) Code(s): I10 - ESSENTIAL (PRIMARY) HYPERTENSION (7) Hypotension Code(s): I95.9 - HYPOTENSION, UNSPECIFIED Qualifiers: Hypotension type: unspecified hypotension type Qualified Code(s): I95.9 - Hypotension, unspecified (8) Hypoxia Code(s): R09.02 - HYPOXEMIA (9) Lung nodule < 6cm on CT Code(s): R91.1 - SOLITARY PULMONARY NODULE (10) Morbid obesity with BMI of 50.0-59.9, adult Code(s): E66.01 - MORBID (SEVERE) OBESITY DUE TO EXCESS CALORIES; Z68.43 - BODY MASS INDEX (BMI) 50.0-59.9, ADULT (11) Afib Code(s): I48.91 - UNSPECIFIED ATRIAL FIBRILLATION Qualifiers: Atrial fibrillation type: persistent
[2019-10-23] MEDS: guaiFENesin/D-M SUGAR-FREE/ACLHOL-FREE 118 ML BOTTLE PO PRN ×2 (12:49→23:29)
[2019-10-23 16:58] VITALS: BMI 57.1
[2019-10-23] MEDS: AMOX TR/POT CLAV 875MG/125MG TABLETS (FP) PO SCH (19:10)
[2019-10-23] MEDS: LIDOCAINE PATCH REMOVAL MC SCH (21:24)
[2019-10-24 07:09] LABS: BASO % 0.1 % (0-2.0); EOS % 0.1 % (0-4.5); HEMATOCRIT 43.1 % (35.4-49); HEMOGLOBIN 14.7 GM/dL (11.7-16.9); LYMPH % 15.8 % (8-40); MCH 32.9 pg (25.7-33.7); MCHC 34.2 g/dl (32.0-35.9); MEAN CELL VOLUME 96.4 fl (80-96); MEAN PLT VOLUME 8.6 fl (7.5-11.1); MONO % 9.6 % (3.8-10.2); NEUT % 74.4 % (42.8-82.8); PLATELET COUNT 289 K/MM3 (134-434); RBC 4.47 M/mm3 (4.00-5.60); RDW 15.2 % (11.9-15.9); WHITE BLOOD COUNT 16.8 K/mm3 (4.0-10.0)
[2019-10-24 07:49] LABS: ALBUMIN 3.3 g/dl (3.4-5.0); BILIRUBIN,TOTAL 0.3 mg/dL (0.2-1); BLOOD UREA NITROGEN 36.9 mg/dL (7-18); CALCIUM 9.2 mg/dL (8.5-10.1); POTASSIUM 4.5 mmol/L (3.5-5.1); TOT PROT 7.6 g/dl (6.4-8.2)
[2019-10-24] MEDS ORDERED: predniSONE 10 MG TABLET (UD) PO SCH (10:00)
[2019-10-24] MEDS ORDERED: predniSONE 20 MG TABLET (UD) PO SCH (10:00)
[2019-10-24] MEDS: AMOX TR/POT CLAV 875MG/125MG TABLETS (FP) PO SCH (10:37)
[2019-10-24] MEDS: CARVEDILOL 6.25 MG TABLET (FP) PO SCH (10:38)
[2019-10-24] MEDS: LOSARTAN POTASSIUM 50 MG TABLET (FP) PO SCH (10:38)
[2019-10-24] MEDS: APIXABAN 5 MG TABLET PO SCH (10:38)
[2019-10-24] MEDS: LIDOCAINE 5% TOPICAL PATCH TP SCH (10:39)
[2019-10-24] MEDS: ALLOPURINOL 300 MG TABLET (FP) PO SCH (10:39)
--- NOTE | 2019-10-24 13:10 | PN ---
Progress Note (short form) - Note Progress Note: Breathing feels much better today. No CP or SOB or wheezing. Intake & Output 10/21/19 10/22/19 10/23/19 10/24/19 23:59 23:59 23:59 23:59 Intake Total 970 540 220 100 Output Total 200 200 Balance 770 340 220 100 Weight 355 lb 6.4 oz 354 lb 12.8 oz 354 lb Last Vital Signs Temp Pulse Resp BP Pulse Ox 97.8 F 78 18 138/98 98 10/24/19 13:00 10/24/19 13:00 10/24/19 13:00 10/24/19 13:00 10/24/19 09:00 Active Medications Albuterol/Ipratropium (Duoneb -) 1 amp NEB Q4H PRN PRN Reason: SHORTNESS OF BREATH Allopurinol (Zyloprim -) 300 mg PO DAILY [facility] Last Admin: 10/24/19 10:39 Dose: 300 mg Amoxicillin/Clavulanate Potassium (Augmentin - 875mg Tablet) 1 tab PO BID@0800, 1730 [facility] Stop: 10/28/19 08:01 Last Admin: 10/24/19 10:37 Dose: 1 tab Apixaban (Eliquis -) 5 mg PO BID [facility] Last Admin: 10/24/19 10:38 Dose: 5 mg Carvedilol (Coreg -) 6.25 mg PO BID [facility] Last Admin: 10/24/19 10:38 Dose: 6.25 mg Ergocalciferol (Drisdol -) 50,000 unit PO TU [facility] Guaifenesin (Diabetic Tussin Dm -) 10 ml PO Q6H PRN PRN Reason: COUGH Last Admin: 10/23/19 23:29 Dose: 10 ml Lidocaine (Lidoderm Patch -) 1 patch TP DAILY [facility] Last Admin: 10/24/19 10:39 Dose: 1 patch Losartan Potassium (Cozaar -) 100 mg PO DAILY [facility] Last Admin: 10/24/19 10:38 Dose: 100 mg Miscellaneous (Lidoderm Patch Removal) 1 each MC DAILY@2200 [facility] Last Admin: 10/23/19 21:24 Dose: Not Given Prednisone (Deltasone -) 40 mg PO DAILY [facility] Stop: 10/27/19 09:59 Last Admin: 10/24/19 10:43 Dose: 40 mg Prednisone (Deltasone -) 30 mg PO DAILY [facility] Stop: 10/30/19 09:59 Prednisone (Deltasone -) 20 mg PO DAILY [facility] Stop: 11/02/19 09:59 Prednisone (Deltasone -) 10 mg PO DAILY [facility] Stop: 11/05/19 09:59 Prednisone (Deltasone -) 5 mg PO DAILY [facility] Stop: 11/06/19 09:59 Constitutional: Yes: Well Nourished, Calm, Obese Eyes: Yes: WNL HENT: Yes: WNL Neck: Yes: WNL Cardiovascular: Yes: Pulse Irregular, S1, S2 Respiratory: Yes: Diminished Gastrointestinal: Yes: Normal Bowel Sounds, Soft Extremities: Yes: WNL Edema: Yes Labs: Laboratory Results - last 24 hr 10/24/19 10/24/19 05:45 05:45 WBC 16.8 H RBC 4.47 Hgb 14.7 Hct 43.1 MCV 96.4 H MCH 32.9 MCHC 34.2 RDW 15.2 Plt Count 289 MPV 8.6 Absolute Neuts (auto) 12.5 H Neutrophils % 74.4 Lymphocytes % 15.8 D Monocytes % 9.6 D Eosinophils % 0.1 D Basophils % 0.1 Nucleated RBC % 0 Sodium 136 Potassium 4.5 Chloride 102 Carbon Dioxide 26 Anion Gap 8 BUN 36.9 H Creatinine 1.0 Est GFR (CKD-EPI)AfAm 100.55 Est GFR (CKD-EPI)NonAf 86.76 Random Glucose 133 H Calcium 9.2 Magnesium 2.0 Total Bilirubin 0.3 AST 23 ALT 29 Alkaline Phosphatase 66 Total Protein 7.6 Albumin 3.3 L Problem List - Problems (1) Acute hypoxemic respiratory failure Code(s): J96.01 - ACUTE RESPIRATORY FAILURE WITH HYPOXIA (2) Bronchitis Code(s): J40 - BRONCHITIS, NOT SPECIFIED ACUTE OR CHRONIC (3) Cough Code(s): R05 - COUGH (4) Gout Code(s): M10.9 - GOUT, UNSPECIFIED (5) HLD (hyperlipidemia) Code(s): E78.5 - HYPERLIPIDEMIA, UNSPECIFIED (6) HTN (hypertension) Code(s): I10 - ESSENTIAL (PRIMARY) HYPERTENSION (7) Hypotension Code(s): I95.9 - HYPOTENSION, UNSPECIFIED Qualifiers: Hypotension type: unspecified hypotension type Qualified Code(s): I95.9 - Hypotension, unspecified (8) Hypoxia Code(s): R09.02 - HYPOXEMIA (9) Lung nodule < 6cm on CT Code(s): R91.1 - SOLITARY PULMONARY NODULE (10) Morbid obesity with BMI of 50.0-59.9, adult Code(s): E66.01 - MORBID (SEVERE) OBESITY DUE TO EXCESS CALORIES; Z68.43 - BODY MASS INDEX (BMI) 50.0-59.9, ADULT (11) Afib Code(s): I48.91 - UNSPECIFIED ATRIAL FIBRILLATION Qualifiers: Atrial fibrillation type: longstanding persistent Qualified Code(s): I48.11 - Longstanding persistent atrial fibrillation Assessment/Plan IMP ACUTE HYPOXEMIX RESPIRATORY FAILURE/ BRONCHOSPASM IMPROVED ? PNEUMONIA LLL NODULE ? INFECTIOUS,INFLAMMATORY CHF DIASTOLIC/SYSTOLIC LVEF 40% AFIB HYPOTENSION IMPROVED HTN HLD MORBID OBESITY CKD PATIENT REPORTS 2 (-) SLEEP STUDIES IN THE PAST PLAN ABX PER ID INHALED BRONCHODILATORS SUPPLEMENTAL O2 TAPER STEROIDS CULTURES RATE CONTROL PER CARDIOLOGY MONITOR LYTES,RENAL FUNCTION F/U CHEST CT 4 TO 6 WEEKS: IF NO CHANGE LLL NODULE SUGGEST PET SCAN / BX DR GARZA
--- NOTE | 2019-10-24 13:20 | PN ---
Progress Note (short form) - Note Progress Note: Chief Complaint: Events noted, notes reviewed, reports persistent dyspnea but clinically improved, denies any chest discomfort History of Present Illness: Seen and examined on telemetry. Events noted, notes reviewed, reports persistent dyspnea but clinically improved, denies any chest discomfort Medications: Current Medications Albuterol/Ipratropium (Duoneb -) 1 amp NEB Q4H PRN PRN Reason: SHORTNESS OF BREATH Allopurinol (Zyloprim -) 300 mg PO DAILY [facility] Last Admin: 10/24/19 10:39 Dose: 300 mg Amoxicillin/Clavulanate Potassium (Augmentin - 875mg Tablet) 1 tab PO BID@0800, 1730 [facility] Stop: 10/28/19 08:01 Last Admin: 10/24/19 10:37 Dose: 1 tab Apixaban (Eliquis -) 5 mg PO BID [facility] Last Admin: 10/24/19 10:38 Dose: 5 mg Carvedilol (Coreg -) 6.25 mg PO BID [facility] Last Admin: 10/24/19 10:38 Dose: 6.25 mg Ergocalciferol (Drisdol -) 50,000 unit PO TU [facility] Guaifenesin (Diabetic Tussin Dm -) 10 ml PO Q6H PRN PRN Reason: COUGH Last Admin: 10/23/19 23:29 Dose: 10 ml Lidocaine (Lidoderm Patch -) 1 patch TP DAILY [facility] Last Admin: 10/24/19 10:39 Dose: 1 patch Losartan Potassium (Cozaar -) 100 mg PO DAILY [facility] Last Admin: 10/24/19 10:38 Dose: 100 mg Miscellaneous (Lidoderm Patch Removal) 1 each MC DAILY@2200 [facility] Last Admin: 10/23/19 21:24 Dose: Not Given Prednisone (Deltasone -) 40 mg PO DAILY [facility] Stop: 10/27/19 09:59 Last Admin: 10/24/19 10:43 Dose: 40 mg Prednisone (Deltasone -) 30 mg PO DAILY [facility] Stop: 10/30/19 09:59 Prednisone (Deltasone -) 20 mg PO DAILY [facility] Stop: 11/02/19 09:59 Prednisone (Deltasone -) 10 mg PO DAILY [facility] Stop: 11/05/19 09:59 Prednisone (Deltasone -) 5 mg PO DAILY [facility] Stop: 11/06/19 09:59 Review of Systems - Review of Systems Constitutional: denies: Chills, Fever Cardiovascular: As noted above Respiratory: denies: Cough or Sputum Production Gastrointestinal: reports: Nausea, Vomiting, Diarrhea denies: Constipation or Abdominal Pain Neurological: denies: Headaches Vital Signs: Last Vital Signs Temp Pulse Resp BP Pulse Ox 97.8 F 78 18 138/98 98 10/24/19 13:00 10/24/19 13:00 10/24/19 13:00 10/24/19 13:00 10/24/19 09:00 Intake & Output 10/21/19 10/22/19 10/23/19 10/24/19 23:59 23:59 23:59 23:59 Intake Total 970 540 220 100 Output Total 200 200 Balance 770 340 220 100 Weight 355 lb 6.4 oz 354 lb 12.8 oz 354 lb Neck: Supple Negative JVD No Bruit Respiratory: Diminished breath sounds at the bases bilaterally Cardiovascular: S1 S2 Irregularly Irregular Gastrointestinal: Soft Benign Normal Bowel Sounds Ext: Trace Edema Labs: CBC, BMP 10/24/19 05:45 10/24/19 05:45 Hepatic Panel Total Bilirubin 0.3 mg/dL (0.2-1) 10/24/19 05:45 AST 23 U/L (15-37) 10/24/19 05:45 ALT 29 U/L (13-61) 10/24/19 05:45 Alkaline Phosphatase 66 U/L (45-117) 10/24/19 05:45 Albumin 3.3 g/dl (3.4-5.0) L 10/24/19 05:45 Assessment/Plan ASSESSMENT: 1. Acute hypoxemix respiratory failure- related to acute bronchitis, clinically resolved 2. Chest pain syndrome with atypical for angina pectoris 3. Diastolic dysfunction with clinical class 0-I NYHA classification LV failure , compensated/euvolemic 4. Persistent atrial fibrillation [id number] score 2 on DOAC's/Eliquis 5. HTN 6. Hypercholesterolemia 7. Hyperglycemia 8. CKD 9. Morbid obesity 10. History of poly-substance abuse (none since December) PLAN: 1. Continue Coreg 2. Continue Cozaar 3. Continue Eliquis 4. Continue antibiotics as per the primary team 5. Continue bronchodilators and steroids as per the primary team 6. Transfer to floor care and D/C home as per the primary team Wellington Herman M.D.
[2019-10-24] MEDS ORDERED: guaiFENesin/D-M SUGAR-FREE/ACLHOL-FREE 118 ML BOTTLE PO PRN (14:16)
[2019-10-24] MEDS ORDERED: LIDOCAINE PATCH REMOVAL MC SCH ×2 (14:16→22:00)
[2019-10-24] MEDS ORDERED: ALBUTEROL SO4 2.5/IPRATROPIUM 0.5 INH SOL 3 ML VIAL.NEB. NEB PRN (14:16)
[2019-10-24 14:40] VITALS: BP 150/81; PULSE 73; TEMP 97.9
--- NOTE | 2019-10-24 15:52 | DS ---
Physical Exam: SUBJECTIVE: Patient seen and examined Medically stable for discharge to [facility]. OBJECTIVE: Vital Signs Period Temp Pulse Resp BP Sys/Jean Pulse Ox Last 24 Hr 97.5 F-97.9 F 68-78 18-20 115-150/73-98 98-98 PHYSICAL EXAM Constitutional: Yes: No Distress, Calm, Mordibly obese Eyes: Yes: WNL, Conjunctiva Clear HENT: Yes: WNL, Atraumatic, Normocephalic Neck: Yes: WNL, Supple, Trachea Midline Cardiovascular: Yes: Pulse Irregular Respiratory: Yes: Regular, CTA Bilaterally, Diminished (at bases-due to body habitus) off NC Gastrointestinal: Yes: Normal Bowel Sounds, Soft, Abdomen, Obese ...Rectal Exam: Yes: Deferred Genitourinary: Yes: WNL Breast(s): Yes: WNL Musculoskeletal: Yes: Joint Stiffness (right knee) Extremities: Yes: WNL Edema: No Peripheral Pulses WNL: Yes Peripheral Pulses: Left Radial: 2+, Right Radial: 2+, Left Doralis Pedis: 2+, Right Dorsalis Pedis: 2+, Left Femoral: 2+, Right Femoral: 2+ Integumentary: Yes: Tattoos (to left chest) Neurological: Yes: WNL, Alert, Oriented ...Motor Strength: WNL Psychiatric: Yes: WNL LABS Laboratory Results - last 24 hr 10/24/19 10/24/19 05:45 05:45 WBC 16.8 H RBC 4.47 Hgb 14.7 Hct 43.1 MCV 96.4 H MCH 32.9 MCHC 34.2 RDW 15.2 Plt Count 289 MPV 8.6 Absolute Neuts (auto) 12.5 H Neutrophils % 74.4 Lymphocytes % 15.8 D Monocytes % 9.6 D Eosinophils % 0.1 D Basophils % 0.1 Nucleated RBC % 0 Sodium 136 Potassium 4.5 Chloride 102 Carbon Dioxide 26 Anion Gap 8 BUN 36.9 H Creatinine 1.0 Est GFR (CKD-EPI)AfAm 100.55 Est GFR (CKD-EPI)NonAf 86.76 Random Glucose 133 H Calcium 9.2 Magnesium 2.0 Total Bilirubin 0.3 AST 23 ALT 29 Alkaline Phosphatase 66 Total Protein 7.6 Albumin 3.3 L HOSPITAL COURSE: Date of Admission:10/20/19 Date of Discharge: 10/24/19 (1) HTN (hypertension) Assessment/Plan: normotensive now, BP low on presentation to ED c/w losartan on discharge Code(s): I10 - ESSENTIAL (PRIMARY) HYPERTENSION (2) HLD (hyperlipidemia) Assessment/Plan: c/w low chol diet at home counseled on weight loss Code(s): E78.5 - HYPERLIPIDEMIA, UNSPECIFIED (3) Morbid obesity with BMI of 50.0-59.9, adult Assessment/Plan: counseled on weight loss low fat/chol diet encourage exercise regimine on discharge Code(s): E66.01 - MORBID (SEVERE) OBESITY DUE TO EXCESS CALORIES; Z68.43 - BODY MASS INDEX (BMI) 50.0-59.9, ADULT (4) Afib Assessment/Plan: chronic AF, rate controlled coreg decreased to 6.25mg bid, c/w dose at home Code(s): I48.91 - UNSPECIFIED ATRIAL FIBRILLATION Qualifiers: Atrial fibrillation type: longstanding persistent Qualified Code(s): I48.11 - Longstanding persistent atrial fibrillation (5) Gout Assessment/Plan: stable during stay c/w allopurinol Code(s): M10.9 - GOUT, UNSPECIFIED (6) Prophylactic measure Assessment/Plan: FEN Fluids: adequate PO intake Electrolytes: monitor & replete as needed Nutrition: low fat/chol diet DVT c/w eliquis at home Dispo medcially stable for discharge to home Code(s): Z29.9 - ENCOUNTER FOR PROPHYLACTIC MEASURES, UNSPECIFIED (7) Cough Assessment/Plan: resolved Incentive spirometry duonebs prn steroids changed to PO. C/w taper over 12 days rocephin completed and will continue augentin for additional 5 days Code(s): R05 - COUGH (8) Lung nodule < 6cm on CT Assessment/Plan: CT findings demonstrating suspicious nodular density left lower lobe 1.1 x 1.0 x 1.6 cm PET scan as outpatient Pulm f/u in 2 months Code(s): R91.1 - SOLITARY PULMONARY NODULE (9) Obstructive sleep apnea Assessment/Plan: MAGGY screening done and mild sleep apnea noted AH 5.7 will need official sleep study as outpatient Code(s): G47.33 - OBSTRUCTIVE SLEEP APNEA (ADULT) (PEDIATRIC) - Minutes to complete discharge: 35 Discharge Summary Problems reviewed: Yes Reason For Visit: ATRIAL FIB ,HYPOXIA ,HYPOTENSION Current Active Problems Acute hypoxemic respiratory failure (Acute) Bronchitis (Acute) Cough (Acute) Gout (Acute) HLD (hyperlipidemia) (Acute) HTN (hypertension) (Acute) Hypotension (Acute) Hypoxia (Acute) Lung nodule < 6cm on CT (Acute) Morbid obesity with BMI of 50.0-59.9, adult (Acute) Prophylactic measure (Acute) Hospital Course: HOSPITAL COURSE: Date of Admission:10/20/19 Date of Discharge: 10/24/19 (1) HTN (hypertension) Assessment/Plan: normotensive now, BP low on presentation to ED c/w losartan on discharge Code(s): I10 - ESSENTIAL (PRIMARY) HYPERTENSION (2) HLD (hyperlipidemia) Assessment/Plan: c/w low chol diet at home counseled on weight loss Code(s): E78.5 - HYPERLIPIDEMIA, UNSPECIFIED (3) Morbid obesity with BMI of 50.0-59.9, adult Assessment/Plan: counseled on weight loss low fat/chol diet encourage exercise regimine on discharge Code(s): E66.01 - MORBID (SEVERE) OBESITY DUE TO EXCESS CALORIES; Z68.43 - BODY MASS INDEX (BMI) 50.0-59.9, ADULT (4) Afib Assessment/Plan: chronic AF, rate controlled coreg decreased to 6.25mg bid, c/w dose at home Code(s): I48.91 - UNSPECIFIED ATRIAL FIBRILLATION Qualifiers: Atrial fibrillation type: longstanding persistent Qualified Code(s): I48.11 - Longstanding persistent atrial fibrillation (5) Gout Assessment/Plan: stable during stay c/w allopurinol Code(s): M10.9 - GOUT, UNSPECIFIED (6) Prophylactic measure Assessment/Plan: FEN Fluids: adequate PO intake Electrolytes: monitor & replete as needed Nutrition: low fat/chol diet DVT c/w eliquis at home Dispo medcially stable for discharge to home Code(s): Z29.9 - ENCOUNTER FOR PROPHYLACTIC MEASURES, UNSPECIFIED (7) Cough Assessment/Plan: resolved Incentive spirometry duonebs prn steroids changed to PO. C/w taper over 12 days rocephin completed and will continue augentin for additional 5 days Code(s): R05 - COUGH (8) Lung nodule < 6cm on CT Assessment/Plan: CT findings demonstrating suspicious nodular density left lower lobe 1.1 x 1.0 x 1.6 cm PET scan as outpatient Pulm f/u in 2 months Code(s): R91.1 - SOLITARY PULMONARY NODULE (9) Obstructive sleep apnea Assessment/Plan: MAGGY screening done and mild sleep apnea noted AH 5.7 will need official sleep study as outpatient Code(s): G47.33 - OBSTRUCTIVE SLEEP APNEA (ADULT) (PEDIATRIC) Condition: Good - Instructions Diet, Activity, Other Instructions: DISCHARGE YOUR VISIT You came to the hospital because MEDICATIONS Please continue to take your home medications as prescribed. There was XXXXX changes DIET Continue your home diet ADDITIONAL CARE Please make an appointment to see your primary care provider, [phone] 1 week from today. Follow with Dr Duggan (Pulmonary) in [address] scan ADDITIONAL INFORMATION Please call 911 or come directly to the emergency department if you experience unusual headache, vision change, shortness of breath, chest pain, numbness, tingling, loss of alertness/awareness, loss of function, unusual bleeding or any alarming symptoms. Thank you for allowing me to care for you. Catalino Downs, [facility], [facility] [phone] Referrals: Zane Duggan MD [Staff Physician] - 1 Month (follow uop CT scan) Wellington Herman MD [Staff Physician] - Arsalan June MD [Primary Care Provider] - - Home Medications Comprehensive Discharge Medication List: Ambulatory Orders Allopurinol [Zyloprim -] 300 mg PO DAILY 07/19/16 Apixaban [Eliquis -] 5 mg PO BID #60 tablet 12/21/16 Ergocalciferol (Vitamin D2) [Vitamin D2] 50,000 unit PO TU 06/05/17 Losartan Potassium 100 mg PO DAILY #30 tablet 06/06/17 Amox-Tr/K Cl [Augmentin 875-125mg Tablet -] 1 tab PO BID@0800,1730 #14 tablet Carvedilol [Coreg -] 6.25 mg PO BID #60 tablet 10/23/19 Lidocaine 5% Patch [Lidoderm -] 1 patch TP DAILY #30 patch 10/23/19 predniSONE [Deltasone -] 10 mg PO DAILY #30 tablet 10/23/19 Prescription Drug Monitoring Program (I-STOP) results: I-STOP not reviewed Problem List - Problems (1) HTN (hypertension) Code(s): I10 - ESSENTIAL (PRIMARY) HYPERTENSION (2) HLD (hyperlipidemia) Code(s): E78.5 - HYPERLIPIDEMIA, UNSPECIFIED (3) Morbid obesity with BMI of 50.0-59.9, adult Code(s): E66.01 - MORBID (SEVERE) OBESITY DUE TO EXCESS CALORIES; Z68.43 - BODY MASS INDEX (BMI) 50.0-59.9, ADULT (4) Afib Code(s): I48.91 - UNSPECIFIED ATRIAL FIBRILLATION Qualifiers: Atrial fibrillation type: longstanding persistent Qualified Code(s): I48.11 - Longstanding persistent atrial fibrillation (5) Gout Code(s): M10.9 - GOUT, UNSPECIFIED (6) Prophylactic measure Code(s): Z29.9 - ENCOUNTER FOR PROPHYLACTIC MEASURES, UNSPECIFIED (7) Cough Code(s): R05 - COUGH (8) Lung nodule < 6cm on CT Code(s): R91.1 - SOLITARY PULMONARY NODULE (9) Obstructive sleep apnea Code(s): G47.33 - OBSTRUCTIVE SLEEP APNEA (ADULT) (PEDIATRIC) This patient is new to me today: No Emergency Visit: Yes ED Registration Date: 10/20/19 Care time: The patient presented to the Emergency Department on the above date and was hospitalized for further evaluation of their emergent condition. Critical Care patient: No - Discharge Referral Referred to [facility] No
[2019-10-24] MEDS ORDERED: APIXABAN 5 MG TABLET PO SCH (22:00)
[2019-10-24] MEDS ORDERED: CARVEDILOL 6.25 MG TABLET (FP) PO SCH (22:00)
[2019-10-25] MEDS ORDERED: ALLOPURINOL 300 MG TABLET (FP) PO SCH (10:00)
[2019-10-25] MEDS ORDERED: LOSARTAN POTASSIUM 50 MG TABLET (FP) PO SCH (10:00)
[2019-10-25] MEDS ORDERED: LIDOCAINE 5% TOPICAL PATCH TP SCH (10:00)
[2019-10-27] MEDS ORDERED: ERGOCALCIFEROL (VIT D2) 50,000 UNIT (1.25 MG) CAPSULE PO SCH ×2 (10:00)
[2019-10-27] MEDS ORDERED: predniSONE 10 MG TABLET (UD) PO SCH (10:00)
[2019-10-30] MEDS ORDERED: predniSONE 20 MG TABLET (UD) PO SCH (10:00)
[2019-11-02] MEDS ORDERED: predniSONE 10 MG TABLET (UD) PO SCH (10:00)
[2019-11-05] MEDS ORDERED: predniSONE 5 MG TABLET (UD) PO SCH (10:00)
== END 2019-10-24 16:55 | disposition home or self-care (01) | DRG 144 ==
LOC: JER 14:09 → JERBED 18:10 → J4W 10-21 00:31 → J6S 10-24 12:58
PROVIDERS: ATTEND Internal Medicine
DX: J20.9 Acute bronchitis, unspecified (principal); E78.5 Hyperlipidemia, unspecified; R91.1 Solitary pulmonary nodule; I48.21 Permanent atrial fibrillation; I13.0 Hypertensive heart and chronic kidney disease with heart failure and stage 1 through stage 4 chronic kidney disease, or unspecified chronic kidney disease; I50.22 Chronic systolic (congestive) heart failure; E66.01 Morbid (severe) obesity due to excess calories; M10.9 Gout, unspecified; R05 Cough; J96.01 Acute respiratory failure with hypoxia; I95.9 Hypotension, unspecified; G47.33 Obstructive sleep apnea (adult) (pediatric); F10.21 Alcohol dependence, in remission; F14.21 Cocaine dependence, in remission; Z68.43 Body mass index [BMI] 50.0-59.9, adult; Z71.3 Dietary counseling and surveillance
CPT/HCPCS: 36415; 36600; 71045-TC-FY; 71250-TC; 80053; 80061; 81003; 82550; 82803; 83036; 83721; 83735; 83880; 84443; 84484; 85025; 87040; 87804; 87807; 90732; 93005; 93010; 94010; 94640; 99285-25; G0009

== ENCOUNTER 2020-08-15 13:49 | Inpatient (IN) | payer OTHER ==
[2020-08-15 14:06] VITALS: BMI 33.3
[2020-08-15 15:36] LABS: BASO % 1.1 % (0-2.0); EOS % 1.7 % (0-4.5); HEMATOCRIT 43.5 % (35.4-49); HEMOGLOBIN 14.3 GM/dL (11.7-16.9); LYMPH % 30.1 % (8-40); MCH 30.4 pg (25.7-33.7); MCHC 32.8 g/dl (32.0-35.9); MEAN CELL VOLUME 92.5 fl (80-96); MEAN PLT VOLUME 8.2 fl (7.5-11.1); MONO % 9.7 % (3.8-10.2); NEUT % 57.4 % (42.8-82.8); PLATELET COUNT 208 K/MM3 (134-434); RDW 14.8 % (11.9-15.9); WHITE BLOOD COUNT 8.1 K/mm3 (4.0-10.0)
[2020-08-15 16:00] LABS: CHLORIDE 107 mmol/L (98-107); POTASSIUM 4.4 mmol/L (3.5-5.1); SODIUM 143 mmol/L (136-145)
[2020-08-15 16:02] LABS: BLOOD UREA NITROGEN 15.2 mg/dL (7-18); CALCIUM 8.6 mg/dL (8.5-10.1)
[2020-08-15 16:03] LABS: ALBUMIN 3.7 g/dl (3.4-5.0); ANION GAP 7 MMOL/L (8-16); CO2 28 mmol/L (21-32); GLUCOSE,RANDOM 85 mg/dL (74-106)
[2020-08-15 16:05] LABS: CREATININE 0.9 mg/dL (0.55-1.3); SGOT/AST 19 U/L (15-37); SGPT/ALT 22 U/L (13-61)
[2020-08-15 16:07] LABS: BILIRUBIN,TOTAL 0.7 mg/dL (0.2-1); TOT PROT 7.3 g/dl (6.4-8.2)
[2020-08-15 16:09] LABS: ALK PHOS 88 U/L (45-117)
[2020-08-15 16:11] LABS: N-TERMINAL BNP 424.8 pg/ml (5-125)
[2020-08-15] MEDS ORDERED: FUROSEMIDE 40 MG/4 ML INJECTABLE VIAL IVPUSH ONE (16:14)
[2020-08-15] MEDS ORDERED: FUROSEMIDE 40 MG/4 ML INJECTABLE VIAL ONE (17:08)
[2020-08-15 17:50] LABS: EPI CELLS 3 /uL (0-25.1); HYALINE CASTS 0 /uL (0-3.1); PH,URINE 5.5 (5.0-8.0); URINE APPEARANCE CLEAR; URINE BACTERIA 4 /uL (0-1359); URINE BILIRUBIN NEGATIVE (NEGATIVE); URINE COLOR YELLOW; URINE GLUCOSE (UA) NEGATIVE (NEGATIVE); URINE KETONE NEGATIVE (NEGATIVE); URINE LEUK ESTERASE NEGATIVE (NEGATIVE); URINE NITRITE NEGATIVE (NEGATIVE); URINE PROTEIN 2+ (NEGATIVE); URINE RBC 4 /uL (0-23.9); URINE UROBILINOGEN 0.2 mg/dL (0.2-1.0); URINE WBC 3 /uL (0-25.8)
[2020-08-15] MEDS ORDERED: amLODIPine BESYLATE 10 MG TABLET (FP) PO ONE (20:39)
[2020-08-15] MEDS ORDERED: APIXABAN 5 MG TABLET ONE (20:56)
[2020-08-15] MEDS ORDERED: CARVEDILOL 12.5 MG TABLET (FP) ONE (20:57)
[2020-08-15] MEDS ORDERED: ATORVASTATIN CA 40 MG TABLET (FP) ONE (20:57)
[2020-08-15] MEDS ORDERED: amLODIPine BESYLATE 5 MG TABLET (FP) ONE (20:57)
[2020-08-15] MEDS: CARVEDILOL 25 MG TABLET (FP) PO SCH (21:01)
[2020-08-15] MEDS: APIXABAN 5 MG TABLET PO SCH (21:01)
[2020-08-15] MEDS ORDERED: ATORVASTATIN CA 40 MG TABLET (FP) PO SCH (22:00)
[2020-08-15] MEDS ORDERED: CARVEDILOL 25 MG TABLET (FP) PO SCH (22:00)
[2020-08-15] MEDS: BACITRACIN 15 GM TUBE TOPICAL OINTMENT TP SCH (22:07)
[2020-08-16 06:30] LABS: HEMATOCRIT 41.5 % (35.4-49); HEMOGLOBIN 13.7 GM/dL (11.7-16.9); MCH 30.9 pg (25.7-33.7); MCHC 32.9 g/dl (32.0-35.9); MEAN CELL VOLUME 93.9 fl (80-96); MEAN PLT VOLUME 8.2 fl (7.5-11.1); PLATELET COUNT 187 K/MM3 (134-434); RBC 4.41 M/mm3 (4.00-5.60); RDW 14.7 % (11.9-15.9); WHITE BLOOD COUNT 9.2 K/mm3 (4.0-10.0)
[2020-08-16 07:30] LABS: ALBUMIN 3.3 g/dl (3.4-5.0); BLOOD UREA NITROGEN 18.1 mg/dL (7-18); CALCIUM 8.6 mg/dL (8.5-10.1); MAGNESIUM 2.1 mg/dL (1.8-2.4)
[2020-08-16 07:33] LABS: CREATININE 0.9 mg/dL (0.55-1.3); PHOSPHOROUS 3.6 mg/dL (2.5-4.9)
[2020-08-16 07:35] LABS: TOT PROT 6.8 g/dl (6.4-8.2)
[2020-08-16] MEDS ORDERED: ALLOPURINOL 300 MG TABLET (FP) PO SCH (10:00)
[2020-08-16] MEDS ORDERED: LOSARTAN POTASSIUM 50 MG TABLET PO SCH (10:00)
[2020-08-16] MEDS ORDERED: PT OWN MED DRAWER 7, Y5N ONE (10:10)
[2020-08-16] MEDS: FUROSEMIDE 40 MG/4 ML INJECTABLE VIAL IVPUSH SCH ×2 (10:15→15:14)
[2020-08-16] MEDS: CARVEDILOL 25 MG TABLET (FP) PO SCH (10:15)
[2020-08-16] MEDS: APIXABAN 5 MG TABLET PO SCH (10:15)
[2020-08-16] MEDS: BACITRACIN 15 GM TUBE TOPICAL OINTMENT TP SCH (10:37)
[2020-08-16] MEDS ORDERED: ACETAMINOPHEN 325 MG TABLET (FP) PO PRN (12:28)
[2020-08-16 16:06] VITALS: BP 135/87; PULSE 87; TEMP 98.3
== END 2020-08-16 17:32 | disposition home or self-care (01) | DRG 194 ==
LOC: JER 13:49 → JERBED 17:17 → J4W 08-16 01:54
PROVIDERS: ATTEND Student in an Organized Health Care Education/Training Program
DX: I13.0 Hypertensive heart and chronic kidney disease with heart failure and stage 1 through stage 4 chronic kidney disease, or unspecified chronic kidney disease (principal); I50.23 Acute on chronic systolic (congestive) heart failure; E66.01 Morbid (severe) obesity due to excess calories; Z68.42 Body mass index [BMI] 45.0-49.9, adult; M10.9 Gout, unspecified; I44.0 Atrioventricular block, first degree; Z79.01 Long term (current) use of anticoagulants; N18.9 Chronic kidney disease, unspecified; E78.5 Hyperlipidemia, unspecified; I48.21 Permanent atrial fibrillation; G47.33 Obstructive sleep apnea (adult) (pediatric)
CPT/HCPCS: 36415; 71045-TC-FY; 71046-TC-FY; 80053; 81003; 82550; 83735; 83880; 84100; 84484; 85025; 85027; 93005; 93010; 93306-TC; 99285-25; C9803; U0003

== ENCOUNTER 2020-09-14 13:03 | Emergency (ER) | payer OTHER ==
[2020-09-14 13:14] VITALS: BP 165/100; PULSE 88; TEMP 98.4; BMI 50.7
== END 2020-09-14 16:19 | disposition home or self-care (01) ==
LOC: JER 13:03
DX: U07.1 COVID-19 (principal)
CPT/HCPCS: 71046-TC-FY; 87426; 99284-25

== ENCOUNTER 2022-03-24 22:46 | Inpatient (IN) | payer OTHER ==
[2022-03-25 01:57] LABS: VENOUS BASE EXCESS -0.4 mmol/L (-2-2); VENOUS PCO2 44.2 mmHg (38-52); VENOUS PH 7.373 (7.310-7.410)
[2022-03-25 02:40] LABS: HEMOGLOBIN 14.8 GM/dL (11.7-16.9); RBC 4.78 M/mm3 (4.00-5.60); WHITE BLOOD COUNT 9.8 K/mm3 (4.0-10.0)
[2022-03-25 02:41] LABS: BASO % 0.4 % (0-2.0); EOS % 1.1 % (0-4.5); LYMPH % 27.2 % (8-40); MCH 30.9 pg (25.7-33.7); MCHC 33.5 g/dl (32.0-35.9); MEAN CELL VOLUME 92.1 fl (80-96); MEAN PLT VOLUME 8.4 fl (7.5-11.1); MONO % 11.3 % (3.8-10.2); PLATELET COUNT 196 10^3/uL (134-434); RDW 15.6 % (11.9-15.9)
[2022-03-25 02:47] LABS: EPI CELLS 25 /uL (0-25.1); URINE APPEARANCE CLEAR; URINE BACTERIA 1 /uL (0-1359); URINE BILIRUBIN NEGATIVE (NEGATIVE); URINE COLOR DK YELLOW; URINE GLUCOSE (UA) NEGATIVE (NEGATIVE); URINE KETONE TRACE (NEGATIVE); URINE LEUK ESTERASE NEGATIVE (NEGATIVE); URINE NITRITE NEGATIVE (NEGATIVE); URINE PROTEIN 2+ (NEGATIVE); URINE RBC 19 /uL (0-23.9); URINE WBC 26 /uL (0-25.8)
[2022-03-25 03:02] LABS: INR 1.55 (0.83-1.09); PROTHROMBIN TIME (PATIENT) 17.9 SEC (9.7-13.0)
[2022-03-25] MEDS ORDERED: CLINDAMYCIN 600MG PREMIX IVPB 600 MG/50 ML BAG IVPB ONE ×2 (03:02→03:10)
[2022-03-25 03:05] LABS: ACTIVATED PTT 33.9 SECONDS (25.2-36.5); CALCIUM 8.9 mg/dL (8.5-10.1)
[2022-03-25 03:06] LABS: ALBUMIN 3.8 g/dl (3.4-5.0); BLOOD UREA NITROGEN 35.5 mg/dL (7-18)
[2022-03-25 03:09] LABS: CREATININE 1.2 mg/dL (0.55-1.3)
[2022-03-25 03:10] LABS: BILIRUBIN,TOTAL 0.6 mg/dL (0.2-1); TOT PROT 7.8 g/dl (6.4-8.2)
[2022-03-25] MEDS ORDERED: ACETAMINOPHEN 1000 MG/100 ML BAG IVPB ONE (03:15)
[2022-03-25] MEDS ORDERED: ACETAMINOPHEN INJECTION 100 ML IVPB ONE (03:47)
[2022-03-25] MEDS ORDERED: ACETAMINOPHEN 325 MG TABLET (FP) PO PRN (04:02)
[2022-03-25] MEDS: CEFAZOLIN SODIUM 2 GM in DEXTROSE 5%-WATER 100 ML IVPB SCH ×3 (06:57→17:05)
[2022-03-25 07:14] LABS: HYALINE CASTS 14 /uL (0-3.1)
[2022-03-25 08:11] LABS: BASO % 0.5 % (0-2.0); EOS % 1.5 % (0-4.5); HEMATOCRIT 42.5 % (35.4-49); HEMOGLOBIN 13.9 GM/dL (11.7-16.9); LYMPH % 27.3 % (8-40); MCH 30.7 pg (25.7-33.7); MCHC 32.8 g/dl (32.0-35.9); MEAN CELL VOLUME 93.6 fl (80-96); MEAN PLT VOLUME 8.5 fl (7.5-11.1); MONO % 11.8 % (3.8-10.2); NEUT % 58.9 % (42.8-82.8); PLATELET COUNT 189 10^3/uL (134-434); RBC 4.54 M/mm3 (4.00-5.60); RDW 15.3 % (11.9-15.9); WHITE BLOOD COUNT 9.4 K/mm3 (4.0-10.0)
[2022-03-25 08:12] LABS: ALBUMIN 3.4 g/dl (3.4-5.0); MAGNESIUM 1.9 mg/dL (1.8-2.4)
[2022-03-25 08:13] LABS: CALCIUM 8.9 mg/dL (8.5-10.1)
[2022-03-25 08:14] LABS: CREATININE 1.2 mg/dL (0.55-1.3); PHOSPHOROUS 4.4 mg/dL (2.5-4.9)
[2022-03-25 08:16] LABS: BILIRUBIN,TOTAL 0.6 mg/dL (0.2-1); TOT PROT 7.2 g/dl (6.4-8.2)
[2022-03-25] MEDS ORDERED: CARVEDILOL 25 MG TABLET (FP) ONE (08:55)
[2022-03-25] MEDS ORDERED: FUROSEMIDE 20 MG TABLET (FP) ONE (08:55)
[2022-03-25] MEDS ORDERED: LOSARTAN POTASSIUM 50 MG TABLET ONE (08:55)
[2022-03-25] MEDS ORDERED: APIXABAN 5 MG TABLET ONE (08:55)
[2022-03-25] MEDS: LOSARTAN POTASSIUM 50 MG TABLET PO SCH (09:00)
[2022-03-25] MEDS: ALLOPURINOL 100 MG TABLET (FP) PO SCH (09:00)
[2022-03-25] MEDS: CARVEDILOL 25 MG TABLET (FP) PO SCH ×2 (09:00→21:27)
[2022-03-25] MEDS: APIXABAN 5 MG TABLET PO SCH ×2 (09:00→21:27)
[2022-03-25] MEDS ORDERED: FUROSEMIDE 40 MG TABLET (FP) PO SCH (10:00)
[2022-03-25] MEDS ORDERED: ENOXAPARIN NA (PORCINE) 40 MG/0.4 ML DISP.SYRIN SQ SCH (10:00)
[2022-03-25] MEDS ORDERED: FUROSEMIDE 40 MG/4 ML INJECTABLE VIAL ONE (14:31)
[2022-03-25] MEDS: FUROSEMIDE 40 MG/4 ML INJECTABLE VIAL IVPUSH SCH (14:33)
[2022-03-26 01:09] VITALS: BMI 47.7
[2022-03-26] MEDS: CEFAZOLIN SODIUM 2 GM in DEXTROSE 5%-WATER 100 ML IVPB SCH ×3 (02:25→17:48)
[2022-03-26] MEDS: APIXABAN 5 MG TABLET PO SCH ×2 (09:33→22:16)
[2022-03-26] MEDS: CARVEDILOL 25 MG TABLET (FP) PO SCH ×2 (09:34→22:16)
[2022-03-26] MEDS: ALLOPURINOL 100 MG TABLET (FP) PO SCH (09:34)
[2022-03-26] MEDS: LOSARTAN POTASSIUM 50 MG TABLET PO SCH (09:37)
[2022-03-26] MEDS: FUROSEMIDE 40 MG/4 ML INJECTABLE VIAL IVPUSH SCH (09:38)
[2022-03-26 11:09] LABS: BASO % 0.4 % (0-2.0); EOS % 2.2 % (0-4.5); HEMATOCRIT 41.7 % (35.4-49); HEMOGLOBIN 13.6 GM/dL (11.7-16.9); MCH 30.3 pg (25.7-33.7); MCHC 32.7 g/dl (32.0-35.9); MEAN CELL VOLUME 92.9 fl (80-96); MEAN PLT VOLUME 8.6 fl (7.5-11.1); MONO % 7.1 % (3.8-10.2); NEUT % 63.3 % (42.8-82.8); PLATELET COUNT 187 10^3/uL (134-434); RBC 4.49 M/mm3 (4.00-5.60); RDW 15.4 % (11.9-15.9); WHITE BLOOD COUNT 5.8 K/mm3 (4.0-10.0)
[2022-03-26 11:34] LABS: CALCIUM 8.8 mg/dL (8.5-10.1); MAGNESIUM 2.2 mg/dL (1.8-2.4)
[2022-03-26 11:35] LABS: BLOOD UREA NITROGEN 25.6 mg/dL (7-18)
[2022-03-26 11:38] LABS: CREATININE 0.8 mg/dL (0.55-1.3)
[2022-03-26] MEDS ORDERED: FUROSEMIDE 40 MG/4 ML INJECTABLE VIAL IVPUSH ONE (15:02)
[2022-03-27] MEDS: CEFAZOLIN SODIUM 2 GM in DEXTROSE 5%-WATER 100 ML IVPB SCH ×3 (01:00→17:02)
[2022-03-27] MEDS: ALLOPURINOL 100 MG TABLET (FP) PO SCH (09:38)
[2022-03-27] MEDS: CARVEDILOL 25 MG TABLET (FP) PO SCH (09:38)
[2022-03-27] MEDS: APIXABAN 5 MG TABLET PO SCH (09:38)
[2022-03-27] MEDS: FUROSEMIDE 40 MG/4 ML INJECTABLE VIAL IVPUSH SCH (09:38)
[2022-03-27] MEDS: LOSARTAN POTASSIUM 50 MG TABLET PO SCH (09:38)
[2022-03-27 10:58] LABS: BASO % 0.7 % (0-2.0); EOS % 2.7 % (0-4.5); HEMOGLOBIN 13.9 GM/dL (11.7-16.9); LYMPH % 29.4 % (8-40); MCH 30.7 pg (25.7-33.7); MCHC 33.1 g/dl (32.0-35.9); MEAN CELL VOLUME 92.7 fl (80-96); MEAN PLT VOLUME 8.5 fl (7.5-11.1); MONO % 7.4 % (3.8-10.2); NEUT % 59.8 % (42.8-82.8); PLATELET COUNT 207 10^3/uL (134-434); RBC 4.53 M/mm3 (4.00-5.60); RDW 14.8 % (11.9-15.9); WHITE BLOOD COUNT 6.5 K/mm3 (4.0-10.0)
[2022-03-27 11:22] LABS: CALCIUM 8.9 mg/dL (8.5-10.1)
[2022-03-27 11:23] LABS: BLOOD UREA NITROGEN 19.6 mg/dL (7-18); MAGNESIUM 2.1 mg/dL (1.8-2.4)
[2022-03-27 11:26] LABS: CREATININE 0.7 mg/dL (0.55-1.3); PHOSPHOROUS 2.8 mg/dL (2.5-4.9)
[2022-03-27] MEDS ORDERED: FUROSEMIDE 40 MG/4 ML INJECTABLE VIAL IVPUSH ONE (14:30)
[2022-03-27 15:39] VITALS: TEMP 98.4
[2022-03-27 15:50] VITALS: BP 152/90; PULSE 81
== END 2022-03-27 18:43 | disposition home or self-care (01) | DRG 383 ==
LOC: JER 22:46 → JERBED 03-25 03:15 → J6S 03-25 21:16
PROVIDERS: ADMIT Internal Medicine; ATTEND Internal Medicine
DX: L03.116 Cellulitis of left lower limb (principal); I50.33 Acute on chronic diastolic (congestive) heart failure; I48.91 Unspecified atrial fibrillation; Z68.42 Body mass index [BMI] 45.0-49.9, adult; E66.01 Morbid (severe) obesity due to excess calories; I11.0 Hypertensive heart disease with heart failure; E78.5 Hyperlipidemia, unspecified
CPT/HCPCS: 36415; 71045-TC-FY; 80048; 80053; 80061; 81003; 82550; 82803; 83036; 83605; 83735; 84100; 84443; 85025; 85610; 85730; 86850; 86900; 86901; 87040; 87086; 93005; 93010; 93306-TC; 93971-TC; 99285-25; C9803-CS; U0003; U0005

== ENCOUNTER 2022-12-11 17:20 | Observation (INO) | payer OTHER ==
[2022-12-11 19:06] LABS: BASO % 0.6 % (0-2.0); EOS % 1.1 % (0-4.5); HEMATOCRIT 40.9 % (35.4-49); HEMOGLOBIN 13.4 GM/dL (11.7-16.9); LYMPH % 17.1 % (8-40); MCH 30.2 pg (25.7-33.7); MCHC 32.9 g/dl (32.0-35.9); MONO % 9.4 % (3.8-10.2); NEUT % 71.8 % (42.8-82.8); PLATELET COUNT 213 10^3/uL (134-434); RBC 4.44 M/mm3 (4.00-5.60); RDW 14.9 % (11.9-15.9); WHITE BLOOD COUNT 12.6 K/mm3 (4.0-10.0)
[2022-12-11 19:26] LABS: INR 1.36 (0.83-1.09); PROTHROMBIN TIME (PATIENT) 15.7 SEC (9.7-13.0)
[2022-12-11 19:28] LABS: ACTIVATED PTT 34.3 SECONDS (25.2-36.5)
[2022-12-11 19:55] LABS: ALBUMIN 3.2 g/dl (3.4-5.0); BLOOD UREA NITROGEN 14.7 mg/dL (7-18); CALCIUM 9.2 mg/dL (8.5-10.1); MAGNESIUM 1.9 mg/dL (1.8-2.4)
[2022-12-11 19:58] LABS: CREATININE 0.7 mg/dL (0.55-1.3)
[2022-12-11 19:59] LABS: PHOSPHOROUS 2.8 mg/dL (2.5-4.9)
[2022-12-11 20:00] LABS: BILIRUBIN,TOTAL 0.9 mg/dL (0.2-1); TOT PROT 7.2 g/dl (6.4-8.2)
[2022-12-11] MEDS ORDERED: ACETAMINOPHEN 1000 MG/100 ML BAG IVPB ONE (20:01)
[2022-12-11 20:03] LABS: N-TERMINAL BNP 828.8 pg/ml (5-125)
[2022-12-11] MEDS ORDERED: ACETAMINOPHEN INJECTION 100 ML IVPB ONE (20:04)
[2022-12-11] MEDS ORDERED: FUROSEMIDE 40 MG/4 ML INJECTABLE VIAL IVPUSH ONE (20:24)
[2022-12-11] MEDS ORDERED: CARVEDILOL 25 MG TABLET (FP) PO ONE (20:26)
[2022-12-11] MEDS ORDERED: CARVEDILOL 25 MG TABLET (FP) ONE (21:12)
[2022-12-11] MEDS ORDERED: FUROSEMIDE 40 MG/4 ML INJECTABLE VIAL ONE (21:12)
[2022-12-11] MEDS ORDERED: APIXABAN 5 MG TABLET ONE (21:12)
[2022-12-11] MEDS: APIXABAN 5 MG TABLET PO SCH (21:17)
[2022-12-12] MEDS ORDERED: hydrALAZINE HCL 20 MG/ML VIAL IVPUSH PRN (00:30)
[2022-12-12] MEDS ORDERED: NIFEdipine E.R. 30 MG TABLET PO ONE ×2 (02:47→10:00)
[2022-12-12] MEDS: NIFEdipine E.R. 30 MG TABLET PO SCH ×2 (02:51→10:27)
[2022-12-12 03:42] LABS: EPI CELLS 3 /uL (0-25.1); HYALINE CASTS 1 /uL (0-3.1); PH,URINE 5.5 (5.0-8.0); URINE APPEARANCE CLEAR; URINE BACTERIA 1 /uL (0-1359); URINE BILIRUBIN NEGATIVE (NEGATIVE); URINE COLOR YELLOW; URINE GLUCOSE (UA) NEGATIVE (NEGATIVE); URINE KETONE NEGATIVE (NEGATIVE); URINE LEUK ESTERASE NEGATIVE (NEGATIVE); URINE NITRITE NEGATIVE (NEGATIVE); URINE PROTEIN 3+ (NEGATIVE); URINE RBC 11 /uL (0-23.9); URINE WBC 11 /uL (0-25.8)
[2022-12-12 04:11] LABS: METHADONE, UR NEGATIVE (NEGATIVE); OPIATES, URI NEGATIVE (NEGATIVE); PHENCYCLIDINE,URINE NEGATIVE (NEGATIVE); URINE AMPHETAMINES NEGATIVE (NEGATIVE); URINE BENZODIAZEPINES NEGATIVE (NEGATIVE)
[2022-12-12 04:25] LABS: COCAINE, UR NEGATIVE (NEGATIVE); URINE BARBITURATES NEGATIVE (NEGATIVE)
[2022-12-12] MEDS ORDERED: NITROGLYCERIN 2% OINTMENT - 1GM PACKET TD ONE ×2 (07:13→07:30)
[2022-12-12] MEDS ORDERED: hydrALAZINE HCL 20 MG/ML VIAL ONE (07:54)
[2022-12-12 08:38] LABS: CALCIUM 9.1 mg/dL (8.5-10.1)
[2022-12-12 08:39] LABS: ALBUMIN 3.2 g/dl (3.4-5.0); BLOOD UREA NITROGEN 15.5 mg/dL (7-18)
[2022-12-12 08:41] LABS: CREATININE 0.7 mg/dL (0.55-1.3)
[2022-12-12 08:43] LABS: BILIRUBIN,TOTAL 1.2 mg/dL (0.2-1)
[2022-12-12 08:45] LABS: BASO % 0.4 % (0-2.0); EOS % 1.5 % (0-4.5); HEMATOCRIT 40.3 % (35.4-49); HEMOGLOBIN 13.7 GM/dL (11.7-16.9); LYMPH % 21.2 % (8-40); MCH 31.3 pg (25.7-33.7); MEAN CELL VOLUME 92.1 fl (80-96); MEAN PLT VOLUME 8.5 fl (7.5-11.1); MONO % 9.9 % (3.8-10.2); PLATELET COUNT 203 10^3/uL (134-434); RBC 4.38 M/mm3 (4.00-5.60); RDW 14.7 % (11.9-15.9); WHITE BLOOD COUNT 10.5 K/mm3 (4.0-10.0)
[2022-12-12] MEDS ORDERED: APIXABAN 5 MG TABLET ONE (09:59)
[2022-12-12] MEDS ORDERED: LOSARTAN POTASSIUM 50 MG TABLET ONE (09:59)
[2022-12-12] MEDS ORDERED: CARVEDILOL 25 MG TABLET (FP) ONE (09:59)
[2022-12-12] MEDS ORDERED: FUROSEMIDE 40 MG/4 ML INJECTABLE VIAL ONE (10:00)
[2022-12-12] MEDS ORDERED: APIXABAN 5 MG TABLET PO SCH (10:00)
[2022-12-12] MEDS ORDERED: FUROSEMIDE 40 MG/4 ML INJECTABLE VIAL IVPUSH SCH (10:00)
[2022-12-12] MEDS: ALLOPURINOL 300 MG TABLET (FP) PO SCH (10:27)
[2022-12-12] MEDS: CARVEDILOL 25 MG TABLET (FP) PO SCH ×2 (10:27→21:20)
[2022-12-12] MEDS: LOSARTAN POTASSIUM 50 MG TABLET PO SCH (10:27)
[2022-12-12] MEDS: APIXABAN 5 MG TABLET PO SCH ×2 (10:27→21:20)
[2022-12-12] MEDS: FUROSEMIDE 40 MG/4 ML INJECTABLE VIAL IVPUSH SCH (14:01)
[2022-12-12 16:01] VITALS: BMI 50.7
[2022-12-12] MEDS: ASPIRIN COATED 81 MG TABLET.EC PO SCH (17:20)
[2022-12-12] MEDS ORDERED: ACETAMINOPHEN 325 MG TABLET (FP) PO PRN (18:32)
[2022-12-13] MEDS: FUROSEMIDE 40 MG/4 ML INJECTABLE VIAL IVPUSH SCH ×2 (05:42→14:58)
[2022-12-13 07:38] LABS: HEMATOCRIT 39.4 % (35.4-49); HEMOGLOBIN 13.6 GM/dL (11.7-16.9); MCH 31.9 pg (25.7-33.7); MCHC 34.5 g/dl (32.0-35.9); MEAN CELL VOLUME 92.4 fl (80-96); MEAN PLT VOLUME 9.1 fl (7.5-11.1); PLATELET COUNT 208 10^3/uL (134-434); RBC 4.27 M/mm3 (4.00-5.60); RDW 14.8 % (11.9-15.9); WHITE BLOOD COUNT 7.9 K/mm3 (4.0-10.0)
[2022-12-13 07:58] LABS: ALBUMIN 3.3 g/dl (3.4-5.0)
[2022-12-13 08:01] LABS: CREATININE 0.8 mg/dL (0.55-1.3); PHOSPHOROUS 4.6 mg/dL (2.5-4.9)
[2022-12-13 08:03] LABS: TOT PROT 7.4 g/dl (6.4-8.2)
[2022-12-13] MEDS: ASPIRIN COATED 81 MG TABLET.EC PO SCH (10:34)
[2022-12-13] MEDS: LOSARTAN POTASSIUM 50 MG TABLET PO SCH (10:34)
[2022-12-13] MEDS: ALLOPURINOL 300 MG TABLET (FP) PO SCH (10:34)
[2022-12-13] MEDS: ISOSORBIDE MONONITRATE 30 MG TAB.SR.24H (FP) PO SCH (10:34)
[2022-12-13] MEDS: APIXABAN 5 MG TABLET PO SCH ×2 (10:35→21:24)
[2022-12-13] MEDS: CARVEDILOL 25 MG TABLET (FP) PO SCH ×2 (10:35→21:24)
[2022-12-13] MEDS: NIFEdipine E.R. 30 MG TABLET PO SCH (10:35)
[2022-12-13] MEDS ORDERED: FUROSEMIDE 40 MG/4 ML INJECTABLE VIAL IVPUSH ONE (11:47)
[2022-12-13] MEDS ORDERED: IBUPROFEN 400 MG TABLET (FP) PO ONE (15:05)
[2022-12-14] MEDS: FUROSEMIDE 40 MG/4 ML INJECTABLE VIAL IVPUSH SCH (06:58)
[2022-12-14 08:22] LABS: HEMATOCRIT 38.6 % (35.4-49); HEMOGLOBIN 13.3 GM/dL (11.7-16.9); MCH 31.7 pg (25.7-33.7); MCHC 34.6 g/dl (32.0-35.9); MEAN CELL VOLUME 91.8 fl (80-96); PLATELET COUNT 222 10^3/uL (134-434); RDW 14.8 % (11.9-15.9); WHITE BLOOD COUNT 7.1 K/mm3 (4.0-10.0)
[2022-12-14 08:42] LABS: ALBUMIN 3.2 g/dl (3.4-5.0); CALCIUM 8.7 mg/dL (8.5-10.1)
[2022-12-14 08:43] LABS: BLOOD UREA NITROGEN 26.7 mg/dL (7-18); MAGNESIUM 1.8 mg/dL (1.8-2.4)
[2022-12-14 08:45] LABS: CREATININE 0.9 mg/dL (0.55-1.3); PHOSPHOROUS 3.8 mg/dL (2.5-4.9)
[2022-12-14 08:47] LABS: BILIRUBIN,TOTAL 0.8 mg/dL (0.2-1)
[2022-12-14 09:39] VITALS: BP 128/69; PULSE 81; RESP 18; TEMP 98.4
[2022-12-14] MEDS: NIFEdipine E.R. 30 MG TABLET PO SCH (09:39)
[2022-12-14] MEDS: LOSARTAN POTASSIUM 50 MG TABLET PO SCH (09:39)
[2022-12-14] MEDS: ASPIRIN COATED 81 MG TABLET.EC PO SCH (09:40)
[2022-12-14] MEDS: APIXABAN 5 MG TABLET PO SCH (09:40)
[2022-12-14] MEDS: ALLOPURINOL 300 MG TABLET (FP) PO SCH (09:41)
[2022-12-14] MEDS: CARVEDILOL 25 MG TABLET (FP) PO SCH (09:41)
[2022-12-14] MEDS: ISOSORBIDE MONONITRATE 30 MG TAB.SR.24H (FP) PO SCH (09:41)
== END 2022-12-14 13:41 | disposition home or self-care (01) ==
LOC: JER 17:20 → INTOOBSV 20:27 → JERBED 20:27 → J4W 12-12 15:26
PROVIDERS: ADMIT Internal Medicine; ATTEND Internal Medicine
PROC: 3E033NZ Introduction of Analgesics, Hypnotics, Sedatives into Peripheral Vein, Percutaneous Approach (ICD-10-PCS; principal; 2022-12-11)
PROC: 3E033GC Introduction of Other Therapeutic Substance into Peripheral Vein, Percutaneous Approach (ICD-10-PCS; 2022-12-11)
DX: I16.0 Hypertensive urgency (principal); I11.0 Hypertensive heart disease with heart failure; E78.5 Hyperlipidemia, unspecified; I48.91 Unspecified atrial fibrillation; Z79.01 Long term (current) use of anticoagulants; E66.8 Other obesity; Z68.43 Body mass index [BMI] 50.0-59.9, adult
CPT/HCPCS: 0241U-QW; 36415; 71045-TC-FY; 80053; 80307; 81003; 83735; 83880; 84100; 84484; 85025; 85027; 85610; 85730; 87086; 93005; 93010; 93306-TC; 94010; 94761; 96374; 96375; 96376; 97116-GP; 97162-GP; 99285-25; G0378

== ENCOUNTER 2023-02-26 04:14 | Day surgery (SDC) | payer OTHER ==
[2023-02-22 16:04] VITALS: BMI 50.7
[~2023-02-26 04:14] MED LIST: BUPIVACAINE HCL/PF 0.75% 10 ML VIAL NR ONE; LIDOCAINE HCL 1% PRESERVATIVE FREE - 30ML VIAL IJ ONE
[2023-02-26] MEDS ORDERED: LIDOCAINE HCL/PF 1% SDV 5ML VIAL ONE (07:29)
[2023-02-26] MEDS ORDERED: BUPIVACAINE HCL/PF 0.75% 10 ML VIAL ONE (07:29)
[2023-02-26] MEDS ORDERED: ACETAMINOPHEN 500 MG TABLET (FP) PO PRN (08:38)
[2023-02-26] MEDS ORDERED: BUPIVACAINE HCL/PF 0.75% 10 ML VIAL NR ONE (10:39)
[2023-02-26] MEDS ORDERED: LIDOCAINE HCL 1% PRESERVATIVE FREE - 30ML VIAL IJ ONE (10:41)
[2023-02-26 11:47] VITALS: RESP 22; TEMP 98.6
[2023-02-26 11:50] VITALS: BP 130/80; PULSE 74
== END 2023-02-26 11:10 | disposition home or self-care (01) ==
LOC: JASU-SURG 04:14
PROVIDERS: ATTEND Pain Medicine Pain Medicine
PROC: 3E0T3BZ Introduction of Anesthetic Agent into Peripheral Nerves and Plexi, Percutaneous Approach (ICD-10-PCS; principal; 2023-02-26 10:45)
DX: M47.816 Spondylosis without myelopathy or radiculopathy, lumbar region (principal)
CPT/HCPCS: 76000-TC-FY

== ENCOUNTER 2023-09-17 04:29 | Day surgery (SDC) | payer OTHER ==
[2023-09-10 11:11] VITALS: BMI 50.7
[2023-09-17] MEDS ORDERED: LIDOCAINE HCL/PF 1% SDV 5ML VIAL ONE (07:18)
[2023-09-17] MEDS ORDERED: BUPIVACAINE HCL/PF 0.75% 10 ML VIAL ONE (07:18)
[2023-09-17] MEDS ORDERED: BUPIVACAINE HCL/PF 0.75% 10 ML VIAL NR ONE (10:09)
[2023-09-17] MEDS ORDERED: LIDOCAINE HCL 1% PRESERVATIVE FREE - 30ML VIAL IJ ONE (10:09)
[2023-09-17] MEDS ORDERED: ACETAMINOPHEN 500 MG TABLET (FP) PO PRN (10:33)
[2023-09-17 10:34] VITALS: BP 128/69; PULSE 67; RESP 20; TEMP 98.6
== END 2023-09-17 10:45 | disposition home or self-care (01) ==
LOC: JASU-SURG 04:29
PROVIDERS: ATTEND Pain Medicine Pain Medicine
PROC: 3E0T33Z Introduction of Anti-inflammatory into Peripheral Nerves and Plexi, Percutaneous Approach (ICD-10-PCS; 2023-09-17)
PROC: 3E0T3BZ Introduction of Anesthetic Agent into Peripheral Nerves and Plexi, Percutaneous Approach (ICD-10-PCS; principal; 2023-09-17 09:00)
DX: M47.816 Spondylosis without myelopathy or radiculopathy, lumbar region (principal)
CPT/HCPCS: 76000-TC-FY

== ENCOUNTER 2024-01-08 14:07 | Inpatient (IN) | payer OTHER ==
[2024-01-08 16:06] LABS: BASO % 0.5 % (0-2.0); EOS % 1.6 % (0-4.5); HEMATOCRIT 42.8 % (35.4-49); HEMOGLOBIN 14.2 GM/dL (11.7-16.9); LYMPH % 27.5 % (8-40); MCH 30.9 pg (25.7-33.7); MCHC 33.3 g/dl (32.0-35.9); MEAN CELL VOLUME 92.9 fl (80-96); MEAN PLT VOLUME 8.8 fl (7.5-11.1); MONO % 11.2 % (3.8-10.2); NEUT % 59.2 % (42.8-82.8); PLATELET COUNT 244 10^3/uL (134-434); RDW 15.3 % (11.9-15.9); VENOUS BASE EXCESS -1.8 mmol/L (-2-2); VENOUS O2 SATURATION 62.6 % (70-80); VENOUS PCO2 45.5 mmHg (38-52); VENOUS PH 7.343 (7.310-7.410); WHITE BLOOD COUNT 10.2 K/mm3 (4.0-10.0)
[2024-01-08 16:13] LABS: INR 1.49 (0.83-1.09); PROTHROMBIN TIME (PATIENT) 16.6 SEC (9.7-13.0)
[2024-01-08 16:27] LABS: ALBUMIN 3.7 g/dl (3.4-5.0); BLOOD UREA NITROGEN 35.4 mg/dL (7-18); MAGNESIUM 1.9 mg/dL (1.8-2.4)
[2024-01-08 16:30] LABS: CREATININE 1.7 mg/dL (0.55-1.3)
[2024-01-08 16:31] LABS: TOT PROT 7.5 g/dl (6.4-8.2)
[2024-01-08 16:32] LABS: BILIRUBIN,TOTAL 1.2 mg/dL (0.2-1)
[2024-01-08 16:35] LABS: N-TERMINAL BNP 244.6 pg/ml (5-125)
[2024-01-08] MEDS ORDERED: ACETAMINOPHEN INJECTION 100 ML IVPB ONE (16:37)
[2024-01-08] MEDS ORDERED: FAMOTIDINE 20 MG/50 ML IVPB 20 MG/50 ML MG IVPB ONE (16:38)
[2024-01-08] MEDS ORDERED: FUROSEMIDE 40 MG/4 ML INJECTABLE VIAL ONE (16:38)
[2024-01-08] MEDS ORDERED: INSULIN (NOVOLOG MIX 70/30) 100 UNITS/ML MDV SQ ONE (16:40)
[2024-01-08] MEDS: FUROSEMIDE 40 MG/4 ML INJECTABLE VIAL IVPUSH ONE (16:49)
[2024-01-08] MEDS: ACETAMINOPHEN 1000 MG/100 ML BAG IVPB ONE (16:49)
[2024-01-08] MEDS: FAMOTIDINE 20 MG/50 ML IVPB 20 MG/50 ML MG IVPB ONE (16:49)
[2024-01-08] MEDS ORDERED: guaiFENesin/D-METHORPHAN HB 10 ML UNIT-DOSE CUPS PO PRN (18:00)
[2024-01-08] MEDS: APIXABAN 5 MG TABLET PO SCH (21:55)
[2024-01-08] MEDS: CARVEDILOL 25 MG TABLET (FP) PO SCH (21:55)
[2024-01-08] MEDS ORDERED: HEPARIN NA (PORCINE) 5,000 UNITS/ML 1ML VIAL SQ SCH (22:00)
[2024-01-09 00:44] VITALS: BMI 48.1
[2024-01-09] MEDS ORDERED: FUROSEMIDE 40 MG/4 ML INJECTABLE VIAL IVPUSH SCH (06:00)
[2024-01-09 07:25] LABS: BASO % 0.8 % (0-2.0); EOS % 2.6 % (0-4.5); HEMATOCRIT 39.8 % (35.4-49); HEMOGLOBIN 13.1 GM/dL (11.7-16.9); LYMPH % 37.3 % (8-40); MCH 30.9 pg (25.7-33.7); MCHC 32.8 g/dl (32.0-35.9); MEAN CELL VOLUME 94.1 fl (80-96); MEAN PLT VOLUME 8.9 fl (7.5-11.1); MONO % 10.8 % (3.8-10.2); NEUT % 48.5 % (42.8-82.8); PLATELET COUNT 207 10^3/uL (134-434); RBC 4.23 M/mm3 (4.00-5.60); RDW 15.6 % (11.9-15.9)
[2024-01-09 08:00] LABS: CALCIUM 9.5 mg/dL (8.5-10.1)
[2024-01-09 08:01] LABS: ALBUMIN 3.4 g/dl (3.4-5.0); BLOOD UREA NITROGEN 38.4 mg/dL (7-18)
[2024-01-09 08:03] LABS: PHOSPHOROUS 4.7 mg/dL (2.5-4.9)
[2024-01-09 08:04] LABS: CREATININE 1.5 mg/dL (0.55-1.3)
[2024-01-09 08:05] LABS: TOT PROT 6.9 g/dl (6.4-8.2)
[2024-01-09] MEDS: LOSARTAN POTASSIUM 50 MG TABLET PO SCH (10:34)
[2024-01-09] MEDS: NIFEdipine E.R. 30 MG TABLET PO SCH (10:34)
[2024-01-09] MEDS: FUROSEMIDE 40 MG TABLET (FP) PO SCH (10:34)
[2024-01-09] MEDS: ALLOPURINOL 300 MG TABLET (FP) PO SCH (10:34)
[2024-01-09] MEDS: LIDOCAINE 4% PATCH TP SCH (16:36)
[2024-01-09] MEDS: guaiFENesin/CODEINE 10 ML UNIT-DOSE CUPS PO PRN (16:36)
[2024-01-09] MEDS: ACETAMINOPHEN 1000 MG/100 ML BAG IVPB ONE (19:47)
[2024-01-09] MEDS: LIDOCAINE PATCH REMOVAL MC SCH (21:24)
[2024-01-10 08:22] LABS: POTASSIUM 3.9 mmol/L (3.5-5.1)
[2024-01-10 08:23] LABS: BASO % 0.6 % (0-2.0); EOS % 3.2 % (0-4.5); HEMATOCRIT 39.2 % (35.4-49); HEMOGLOBIN 13.1 GM/dL (11.7-16.9); LYMPH % 37.1 % (8-40); MCH 31.3 pg (25.7-33.7); MCHC 33.5 g/dl (32.0-35.9); MEAN CELL VOLUME 93.5 fl (80-96); MEAN PLT VOLUME 9.2 fl (7.5-11.1); MONO % 10.3 % (3.8-10.2); NEUT % 48.8 % (42.8-82.8); PLATELET COUNT 211 10^3/uL (134-434); RBC 4.19 M/mm3 (4.00-5.60); RDW 15.2 % (11.9-15.9); WHITE BLOOD COUNT 7.5 K/mm3 (4.0-10.0)
[2024-01-10 08:32] LABS: CALCIUM 8.8 mg/dL (8.5-10.1)
[2024-01-10 08:33] LABS: ALBUMIN 3.4 g/dl (3.4-5.0); BLOOD UREA NITROGEN 31.9 mg/dL (7-18)
[2024-01-10 08:35] LABS: PHOSPHOROUS 3.8 mg/dL (2.5-4.9)
[2024-01-10 08:36] LABS: CREATININE 1.3 mg/dL (0.55-1.3)
[2024-01-10 08:37] LABS: TOT PROT 6.7 g/dl (6.4-8.2)
[2024-01-10] MEDS: CYCLOBENZAPRINE HCL 10 MG TABLET (FP) PO ONE (14:07)
[2024-01-10] MEDS: ACETAMINOPHEN 1000 MG/100 ML BAG IVPB PRN (20:42)
[2024-01-10] MEDS: CYCLOBENZAPRINE HCL 10 MG TABLET (FP) PO PRN (21:10)
[2024-01-11 03:56] LABS: EPI CELLS 14 /uL (0-25.1); HYALINE CASTS 1 /uL (0-3.1); URINE APPEARANCE CLEAR; URINE BACTERIA 5 /uL (0-1359); URINE BILIRUBIN NEGATIVE (NEGATIVE); URINE COLOR YELLOW; URINE GLUCOSE (UA) NEGATIVE (NEGATIVE); URINE KETONE NEGATIVE (NEGATIVE); URINE LEUK ESTERASE NEGATIVE (NEGATIVE); URINE NITRITE NEGATIVE (NEGATIVE); URINE PROTEIN 1+ (NEGATIVE); URINE RBC 9 /uL (0-23.9); URINE UROBILINOGEN 0.2 mg/dL (0.2-1.0); URINE WBC 29 /uL (0-25.8)
[2024-01-11] MEDS ORDERED: CYCLOBENZAPRINE HCL 10 MG TABLET (FP) PO ONE (12:45)
[2024-01-11] MEDS: FLUTICASONE PROP 0.05% 16 GM NASAL SPRAY NS SCH (21:21)
[2024-01-11] MEDS: ACETAMINOPHEN 1000 MG/100 ML BAG IVPB ONE (21:29)
[2024-01-11] MEDS: ACETAMINOPHEN 325 MG TABLET (FP) PO SCH (21:30)
[2024-01-12 07:54] LABS: BASO % 0.7 % (0-2.0); EOS % 2.9 % (0-4.5); HEMATOCRIT 41.7 % (35.4-49); HEMOGLOBIN 13.4 GM/dL (11.7-16.9); LYMPH % 35.4 % (8-40); MCH 30.7 pg (25.7-33.7); MCHC 32.3 g/dl (32.0-35.9); MEAN PLT VOLUME 8.9 fl (7.5-11.1); MONO % 10.4 % (3.8-10.2); NEUT % 50.6 % (42.8-82.8); PLATELET COUNT 200 10^3/uL (134-434); RBC 4.38 M/mm3 (4.00-5.60); RDW 15.1 % (11.9-15.9)
[2024-01-12 08:04] LABS: CHLORIDE 104 mmol/L (98-107); POTASSIUM 4.5 mmol/L (3.5-5.1); SODIUM 141 mmol/L (136-145)
[2024-01-12 08:07] LABS: ALBUMIN 3.3 g/dl (3.4-5.0); ANION GAP 5 mmol/L (4-13); BLOOD UREA NITROGEN 23.6 mg/dL (7-18); CO2 32 mmol/L (21-32); GLUCOSE,RANDOM 123 mg/dL (74-106)
[2024-01-12 08:08] LABS: CALCIUM 9.1 mg/dL (8.5-10.1)
[2024-01-12 08:10] LABS: CREATININE 1.1 mg/dL (0.55-1.3); SGOT/AST 22 U/L (15-37); SGPT/ALT 28 U/L (13-61)
[2024-01-12 08:11] LABS: BILIRUBIN,TOTAL 0.9 mg/dL (0.2-1); TOT PROT 6.8 g/dl (6.4-8.2)
[2024-01-12 08:13] LABS: ALK PHOS 65 U/L (45-117)
[2024-01-12 09:33] LABS: ERYTHROCYTE SEDIMENTATION RATE 28 mm/hr (0-20)
[2024-01-12] MEDS: PANTOPRAZOLE 40 MG TABLET PO SCH (10:08)
[2024-01-12] MEDS: KETOROLAC TROMETHAMINE 15 MG/ML VIAL IVPUSH ONE (13:26)
[2024-01-13 06:00] VITALS: RESP 18
[2024-01-13 10:29] VITALS: BP 139/100; PULSE 80; TEMP 98.8
== END 2024-01-13 15:39 | disposition home or self-care (01) | DRG 201 ==
LOC: JER 14:07 → JERBED 16:51 → J4W 19:14 → OBSVTOIN 01-11 09:03
PROVIDERS: ADMIT Internal Medicine; ATTEND Internal Medicine
DX: R00.1 Bradycardia, unspecified (principal); N17.9 Acute kidney failure, unspecified; I11.0 Hypertensive heart disease with heart failure; Z68.42 Body mass index [BMI] 45.0-49.9, adult; I50.32 Chronic diastolic (congestive) heart failure; E66.01 Morbid (severe) obesity due to excess calories; G47.33 Obstructive sleep apnea (adult) (pediatric); G89.29 Other chronic pain; M54.9 Dorsalgia, unspecified; I48.91 Unspecified atrial fibrillation; R07.89 Other chest pain
CPT/HCPCS: 0241U-QW; 36415; 71045-TC-FY; 71250-TC; 72125-TC; 76775-TC; 76856-TC; 80053; 81003; 82550; 82553; 82570; 82803; 83036; 83690; 83735; 83880; 84100; 84156; 84443; 84484; 85025; 85610; 85651; 85730; 86140; 93005; 93010; 93306-TC; 93880-TC; 97116-GP; 97162-GP; 99285-25; G0378; J0131

== ENCOUNTER 2025-03-18 07:30 | Day surgery (SDC) | payer OTHER ==
[2025-03-11 15:34] VITALS: BMI 43.0
[2025-03-18] MEDS ORDERED: ACETAMINOPHEN 500 MG TABLET (FP) PO PRN (08:56)
[2025-03-18 10:37] VITALS: RESP 18
[2025-03-18] MEDS: LIDOCAINE HCL 1% PRESERVATIVE FREE - 30ML VIAL IJ ONE ×3 (13:03)
[2025-03-18] MEDS: LIDOCAINE HCL/PF 2% SDV 5ML VIAL INF ONE ×4 (13:03→13:05)
[2025-03-18] MEDS: DEXAMETHASONE SOD PHOSPHATE 10 MG/1 ML VIAL IVPUSH ONE ×2 (13:20)
[2025-03-18] MEDS: BUPIVACAINE HCL/PF 0.75% 10 ML VIAL NR ONE (13:20)
[2025-03-18 13:46] VITALS: BP 120/76; PULSE 65; TEMP 97.8
== END 2025-03-18 13:48 | disposition home or self-care (01) ==
LOC: JASU-SURG 07:30
PROVIDERS: ATTEND Pain Medicine Pain Medicine
PROC: 015B3ZZ Destruction of Lumbar Nerve, Percutaneous Approach (ICD-10-PCS; principal; 2025-03-18 12:30)
DX: M47.816 Spondylosis without myelopathy or radiculopathy, lumbar region (principal)
CPT/HCPCS: 76000-TC-FY; J1100